=== PATIENT | female | born 1955 | race Caucasian/White ===

== ENCOUNTER → 2018-08-23 15:10 | Outpatient (CLI) | payer MEDICAID, SELFPAY ==
[2018-06-15 15:50] VITALS: BMI 33.3
--- NOTE | 2018-08-23 15:13 | RAD_ITS ---
STUDY: X-RAY - RIGHT HAND, ATTENTION FIRST FINGER REASON FOR EXAM: Female, 63 years old. Mucous cyst in the dorsal radial aspect of the thumb. TECHNIQUE: 3 view(s) of the finger were obtained. COMPARISON: None. FINDINGS: Normal metacarpal head. There is mild degenerative arthrosis of the metacarpophalangeal joint. Normal proximal phalanx. Normal distal phalanx. There is mild degenerative arthrosis of the interphalangeal joint. There is no soft tissue mass or other abnormality. RAD/Finger(s) Min 2 Views IMPRESSION: Degenerative changes of the thumb. There is no visualized osseous or soft tissue mass. Electronically Signed: Mikey Colindres DO at 16:05 EST Tel [phone], Service support ,
--- OUTSIDE RECORDS SUMMARY | 2018-10-09 20:36 | XMS RPT_ITS ---
:1955 Author Organization OH[facility] Care Team Providers Name Role Phone Craig Robles Attending Unavailable Craig Robles Referring Unavailable Romero, Griffin Primary Care Unavailable Romero, Griffin Primary Care Unavailable Bryan Antonio Attending Unavailable Slaby, Craig Attending Unavailable Romero, Griffin Referring Unavailable Romero, Griffin Primary Care Unavailable Slabpraneeth, Craig Attending Unavailable Romero, Griffin Referring Unavailable Romero, Griffin Primary Care Unavailable Margaret, Craig Attending Unavailable Ormero, Griffin Referring Unavailable Slaby, Craig Attending Unavailable Romero, Griffin Referring Unavailable PROBLEMS PROBLEMS DATE TYPE CONDITION / CODE ATTENDING STATUS SOURCE 06/15/2018 Unknown M67.441 - Craig Robles Active Dex Ganglion, right [facility] M67.441(ICD-10) Repository PROCEDURES PROCEDURES No Procedure Records FoundRESULTS RESULTS PLASTIC SURGERY Observed: 09/25/2018 Status: F Source: [place] VISIT REPORT 1:56 PM [facility] REPOSITORY [facility] [address] [place] [address] OFFICE VISIT Date of Service: 09/21/18 MR#: [id number] Acct: [id number] Name: VLAD MACKAY Rep #: [id number] : 1955 Provider: Craig Robles MD Age/Sex: 63/F [place] [facility] [place] Status: Signed Intake Vital Signs09/21/18 Body Mass Index (BMI) 33.3 09/21/18 Height 5 ft 2 in 09/21/18 Weight: 182 lb 6 oz Intake Visit Reasons: evaluation soft tissue masses left forearm Wood Scaler Required: No Accompanied by: None Is patient in pain?: No Allergies No Known Allergies Allergy (Verified 09/21/18 13:39) Medications Hydrochlorothiazide [Hctz] 25 mg PO DAILY 05/21/14 [History Confirmed 03/02/18] naproxen sodium 220 mg capsule 220 mg PO BID PRN 06/15/18 [History Confirmed 06/15/18] Cephalexin [Keflex] 500 mg PO Q6 #30 cap 09/03/18 [Rx] Is last menstrual period known: No Post menopausal: Yes Patient : No PFSH Medical History Actinic keratosis (Acute) Actinic skin damage (Acute) Angiolipoma (Acute) Arthritis (Acute) Compound nevus (Acute) Ganglion cyst (Acute) Lipoma (Acute) Squamous cell carcinoma in situ (Acute) Hypertension (Chronic) Surgical History H/O excision of ganglion cyst (Acute) History of excision of mass (Acute) History of excision of mass (Acute) History of squamous cell carcinoma excision (Acute) History of tubal ligation (Acute) Status post excision of lipoma (Acute) Family History Mother Anxiety Asthma Bleeding disorder Depression Hypertension COPD (chronic obstructive pulmonary disease) Brother Bleeding disorder Depression Hypertension COPD (chronic obstructive pulmonary disease) Social History Smoking Status: Former smoker second hand exposure: No alcohol intake: former substance use type: does not use what type of physical activity do you participate in: walking frequency: 1-2 times per week seatbelt use: never do you feel safe at home: Yes additional social history: SUN EXPOSURE: FREQUENTLY HPI evaluation soft tissue masses left forearm: Details: HISTORY OF PRESENT ILLNESS Patient comes in today for evaluation of soft tissue masses left forearm. She was scheduled to have a mucous cyst right thumb and a soft tissue mass distal dorsal ulnar left forearm excised and rescheduled it because of work issues. Since her last visit in 06/29, she noticed another soft tissue mass on her distal volar radial left forearm that has increased in size over the last couple of months. There is some discomfort when she bumps it. She denies any trauma. For her mucous cyst right thumb, her PCP had initially tried to aspirate it in the office and tried cauterizing it. She states it has gotten a little smaller but is persistent. She denies any functional issues. She denies any numbness. She denies any fever. She denies any trauma. She denies any bleeding. For her soft tissue mass on the distal dorsal ulnar aspect left forearm, there is some discomfort when she bumps it. She denies any trauma. She had an xray of her right thumb on 08/23/18 which showed degenerative changes of the thumb with no visualized osseous or soft tissue mass. REVIEW OF SYSTEMS General - Denies fever, fatigue and weight loss. Eyes - Denies eye pain. denies cataracts. denies glaucoma. ENT - Denies nasal congestion and sore throat. CV - Denies chest pain or discomfort, fatigue, lightheadedness and shortness of breath with exertion. has hypertension. Resp - Denies cough and shortness of breath. patient is a former smoker. GI - Complains of constipation. Denies nausea, vomiting and diarrhea. - Denies blood in urine and urinary frequency. had tubal ligation. MS - Complains of back pain. Denies muscle cramps, stiffness and muscle weakness. She has a mucous cyst at dorsal radial aspect IP joint right right thumb. Derm -has personal history of skin cancer on left anterior leg. Has enlarging soft tissue masses distal dorsal ulnar left forearm and distal volar radial left forearm. Neuro - Denies headaches. Psych - Denies anxiety and depression. Endo - Denies excessive urination and excessive thirst. Heme - Denies bleeding and abnormal bruising. PHYSICAL EXAMINATION General - well developed, well nourished, in no acute distress. HEENT - PERRL/EOMI. Throat is clear. No suspicious lesions noted. Neck - supple and nontender. No cervical adenopathy. No suspicious lesions noted. Lungs - clear bilaterally to auscultation. Heart - regular rate and rhythm. Abdomen - soft and nondistended. Extremities - no clubbing, cyanosis, edema, or deformity noted with normal full range of motion of all joints. On the right thumb on the dorsal radial aspect of the IP joint is a mucous cyst that measures 6 mm. Overlying skin is intact and not ulcerated. Appears mobile. No evidence of infection. No problems with range of motion. No sensory deficits. No evidence of infection. Nontender. No nail grooving. No axillary adenopathy. Fingers are warm with good capillary refill. Radial pulses are palpable. She also has a soft tissue mass distal dorsal ulnar aspect left forearm that is mobile. Measures 2 cm. Slight tenderness to palpation. There is a soft tissue mass distal volar radial aspect left forearm that is mobile. Measures 2.5 cm. Slight tenderness to palpation. Neurologic - cranial nerves II-XII grossly intact. Psych - alert and cooperative; normal mood and affect; normal attention span and concentration. ASSESSMENT 1. 6 mm mucous cyst dorsal radial aspect IP joint right thumb. 2. 2 cm soft tissue mass distal dorsal ulnar aspect left forearm. 3. 2.5 cm soft tissue mass distal volar radial aspect left forearm. 4. Personal history of skin cancer. 5. Former smoker. PLAN Xray reviewed. It showed degenerative changes of the thumb with no visualized osseous or soft tissue mass. Recommend excision of this mucous cyst dorsal radial aspect IP joint right thumb. Will send the cyst to Pathology for analysis to rule out carcinoma. She has some wedding shows in the next few weeks. Will schedule surgery later on in October. Surgery would be done under local anesthesia with a digital tourniquet and IV sedation on an outpatient basis. The overlying skin looks viable and if it can be salvaged then can close the incision primarily. If the overlying skin needs to be removed because of adherence of the cyst to the skin then reconstruction would be with a dorsal skin advancement flap. Depending on how much dissection is needed between the tendon and the bone to look for extensions of the mucous cyst will determine the need for a splint postop to keep the thumb extended during the healing process. The dissection between the tendon and the bone can weaken the tendon. It needs to strengthen before removing the splint. Usually a couple of weeks. At the time of the mucous cyst surgery, can also remove the soft tissue masses on her left forearm and send them to Pathology for analysis to rule out carcinoma. The patient was informed of the risks and complications of the procedure including alternatives to surgery. These were discussed with the patient personally. The patient voices understanding and wishes to proceed. Some of the risks and complications were included in a form from the [place] [employer]. Will followup after her surgery in October. Assessment AND Plan Problems 1. Ganglion cyst of joint of finger of right hand M67.441 2. Mass of left forearm R22.32 3. Personal history of skin cancer Z85.828 4. Former smoker Z87.891 Coding Level of Care Code Off vis,est,level 3 Diagnoses Ganglion cyst of joint of finger of right hand M67.441 Mass of left forearm R22.32 Personal history of skin cancer Z85.828 Former smoker Z87.891 09/25/18 1356 <Electronically signed by Craig Robles MD> Date Craig Robles MD Cosigner Signature: Date (if applicable) CC: Griffin Romero MD DISCHARGE INSTRUCTION Observed: 09/04/2018 Status: F Source: [place] 12:15 AM [facility] REPOSITORY [facility] Medical Records Department [address] [place] [address] Discharge Instruction 09/03/18 2312 MR#: [id number] Acct: [id number] Name: VLAD MACKAY Rep #: [id number] : 1955 63 From: Bryan Antonio MD PCP: Griffin Romero MD Status: DEP ER ED Disposition - Plan for ED Patient: Disposition: Home or Assisted Living Chief Complaint: Abscess Instructions: ED Abscess IandD Prescriptions: Cephalexin [Keflex] 500 mg PO Q6 #30 cap Referrals: Griffin Romero MD [Primary Care Provider] - 3-5 Days Additional Instructions: Tylenol and Motrin for pain. Keflex 1 pill 4 times a day until gone. Follow-up with your doctor. Return if worse. What to do if you have Problems For any increased pain, shortness of breath, bleeding, nausea or vomiting, chest pain, or any unexpected problems, contact your Primary Care Provider. Call [facility] ([phone]) or report to the closest Emergency Room. Call 911 if necessary. 09/04/1814 <Electronically signed by Bryan Antonio MD> Date Bryan Antonio MD Cosigner Signature (If Indicated): Date CC: Griffin Romero MD DISCHARGE INSTRUCTION Observed: 09/04/2018 Status: F Source: [place] 12:15 AM [facility] REPOSITORY [facility] Medical Records Department [address] [place] [address] Discharge Instruction 09/03/182132 MR#: [id number] Acct: [id number] Name: VLAD MACKAY Rep #: [id number] : 1955 63 From: Bryan Antonio MD PCP: Griffin Romero MD Status: DEP ER ED Disposition - Plan for ED Patient: Disposition: Home or Assisted Living Chief Complaint: Abscess Instructions: ED Abscess IandD Prescriptions: Cephalexin [Keflex] 500 mg PO Q6 #30 cap Referrals: Griffin Romero MD [Primary Care Provider] - 3-5 Days Additional Instructions: Tylenol and Motrin for pain. Keflex 1 pill 4 times a day until gone. Follow-up with your doctor. Return if worse. What to do if you have Problems For any increased pain, shortness of breath, bleeding, nausea or vomiting, chest pain, or any unexpected problems, contact your Primary Care Provider. Call [facility] ([phone]) or report to the closest Emergency Room. Call 911 if necessary. 09/04/1814 <Electronically signed by Bryan Antonio MD> Date Bryan Antonio MD Cosigner Signature (If Indicated): Date CC: Griffin Romero MD EMERGENCY DEPARTMENT Observed: 09/04/2018 Status: F Source: [place] SUMMARY 12:15 AM [facility] REPOSITORY [facility] Medical Records Department [address] [place] [address] Emergency Department Summary 09/03/18 2131 MR#: [id number] Acct: [id number] Name: VLAD MACKAY Rep #: [id number] : 1955 63 From: Bryan Antonio MD PCP: Griffin Romero MD Status: DEP ER - ER Visit Summary Date of Service: 09/03/18 Chief Complaint: Abdominal wall abscess History of Present Illness: The patient is a 63 F medical history of hypertension. Patient states this is been there for years. And then it started getting larger several weeks ago in the last several days now has redness around it. She denies any fever or chills. Is never been drained. She denies any discharge. Physical Examination: Well-appearing older female. Vital signs are stable and afebrile. She does not look septic or toxic she is in no distress. H EENT exam unremarkable. Neck nontender. Lungs clear to auscultation bilaterally. Heart regular rhythm no murmur. Abdomen soft. She is an area about size of a quarter with a known abscess or cyst with several inches of surrounding cellulitis. It is mildly tender to palpation. Otherwise the abdomen is nontender without peritoneal signs. She is moving all 4 extremities. Neurologically she is awake alert with no focal deficits. Test Results: None Emergency Department Course and Treatment: Let will be applied to the abscess. Locally anesthetized with lidocaine. Incised and drained. I made a vertical 1 inch incision. And expressed about 5 cc of pus. Irrigated the wound. Placed about 3-4 inches of quarter inch packing gauze. Patient tolerated procedure well. Treatment Plan: Keflex 500 4 times daily for 7 days. Has a follow-up appointment with her doctor this . Packing gauze on for days. Disposition: Discharge Impression: Abdominal abscess with surrounding cellulitis Incision and drainage by ER This note was generated with [employer] dictation software. It may contain incorrect words, spelling, and punctuation that were not noted in review of the chart prior to signing ED Disposition - Plan for ED Patient: Disposition: Home or Assisted Living Chief Complaint: Abscess Instructions: ED Abscess IandD Prescriptions: Cephalexin [Keflex] 500 mg PO Q6 #30 cap Referrals: Griffin Romero MD [Primary Care Provider] - 3-5 Days Additional Instructions: Tylenol and Motrin for pain. Keflex 1 pill 4 times a day until gone. Follow-up with your doctor. Return if worse. What to do if you have Problems For any increased pain, shortness of breath, bleeding, nausea or vomiting, chest pain, or any unexpected problems, contact your Primary Care Provider. Call [facility] ([phone]) or report to the closest Emergency Room. Call 911 if necessary. 09/04/18 0015 <Electronically signed by Bryan Antonio MD> Date Bryan Antonio MD Cosigner Signature (If Indicated): Date CC: Griffin Romero MD FINGER(S) MIN 2 VIEWS Observed: 08/23/2018 Status: F Source: [place] 3:13 PM [facility] REPOSITORY [facility] Imaging Services [address] [place] [address] Finger(s) Min 2 Views MR#: [id number] Acct: [id number] Name: VLAD MACKAY Rep #: [id number] : 1955 F 63 From: Mikey Colindres DO PCP: Griffin Romero MD Status: REG CLI Study: Finger(s) Min 2 Views Date of Exam: 08/23/18 Exam# [id number] Ordering Dr: Craig Robles MD STUDY: X-RAY - RIGHT HAND, ATTENTION FIRST FINGER REASON FOR EXAM: Female, 63 years old. Mucous cyst in the dorsal radial aspect of the thumb. TECHNIQUE: 3 view(s) of the finger were obtained. COMPARISON: None. FINDINGS: Normal metacarpal head. There is mild degenerative arthrosis of the metacarpophalangeal joint. Normal proximal phalanx. Normal distal phalanx. There is mild degenerative arthrosis of the interphalangeal joint. There is no soft tissue mass or other abnormality. RAD/Finger(s) Min 2 Views IMPRESSION: Degenerative changes of the thumb. There is no visualized osseous or soft tissue mass. Electronically Signed: Mikey Colindres DO at 16:05 EST Tel [phone], Service support , CC: Craig Robles MD; Griffin Romero MD Engineering Program Manager: Signed PLASTIC SURGERY Observed: 06/18/2018 Status: F Source: [place] VISIT REPORT 5:27 PM [facility] REPOSITORY [facility] [address] [place] [address] OFFICE VISIT Date of Service: 06/15/18 MR#: [id number] Acct: [id number] Name: VLAD MACKAY Rep #: [id number] : 1955 Provider: Craig Robles MD Age/Sex: 63/F Location: [facility] Status: Signed Intake Vital Signs06/15/18 Height 5 ft 1 in 06/15/18 Weight: 176 lb 6 oz Intake Visit Reasons: evaluation mucus cyst right thumb Wood Scaler Required: No Accompanied by: None Is patient in pain?: No Allergies No Known Allergies Allergy (Verified 06/15/18 15:52) Medications Hydrochlorothiazide [Hctz] 25 mg PO DAILY 05/21/14 [History Confirmed 03/02/18] naproxen sodium 220 mg capsule 220 mg PO BID PRN 06/15/18 [History Confirmed 06/15/18] Is last menstrual period known: No Post menopausal: Yes Patient : No PFSH Medical History Actinic keratosis (Acute) Actinic skin damage (Acute) Angiolipoma (Acute) Arthritis (Acute) Compound nevus (Acute) Ganglion cyst (Acute) Lipoma (Acute) Squamous cell carcinoma in situ (Acute) Hypertension (Chronic) Surgical History H/O excision of ganglion cyst (Acute) History of excision of mass (Acute) History of excision of mass (Acute) History of squamous cell carcinoma excision (Acute) History of tubal ligation (Acute) Status post excision of lipoma (Acute) Family History Mother Anxiety Asthma Bleeding disorder Depression Hypertension COPD (chronic obstructive pulmonary disease) Brother Bleeding disorder Depression Hypertension COPD (chronic obstructive pulmonary disease) Social History Smoking Status: Former smoker second hand exposure: No alcohol intake: former substance use type: does not use what type of physical activity do you participate in: walking frequency: 1-2 times per week seatbelt use: never do you feel safe at home: Yes additional social history: SUN EXPOSURE: FREQUENTLY HPI evaluation mucus cyst right thumb: Details: HISTORY OF PRESENT ILLNESS Patient comes in today for re-evaluation of her mucous cyst right thumb. She states her PCP has tried to aspirate it in the office and tried cauterizing it. She states it has gotten a little smaller but is persistent. She denies any functional issues. She denies any numbness. She denies any fever. She denies any trauma. She denies any bleeding. She also has concerns about a soft tissue mass on the dorsal ulnar aspect mid left forearm. There is some discomfort when she bumps it. She denies any trauma. REVIEW OF SYSTEMS General - Denies fever, fatigue and weight loss. Eyes - Denies eye pain. denies cataracts. denies glaucoma. ENT - Denies nasal congestion and sore throat. CV - Denies chest pain or discomfort, fatigue, lightheadedness and shortness of breath with exertion. has hypertension. Resp - Denies cough and shortness of breath. patient is a former smoker. GI - Complains of constipation. Denies nausea, vomiting and diarrhea. - Denies blood in urine and urinary frequency. had tubal ligation. MS - Complains of back pain. Denies muscle cramps, stiffness and muscle weakness. She has a mucous cyst at dorsal radial aspect IP joint right right thumb. Derm -has personal history of skin cancer on left anterior leg. Neuro - Denies headaches. Psych - Denies anxiety and depression. Endo - Denies excessive urination and excessive thirst. Heme - Denies bleeding and abnormal bruising. PHYSICAL EXAMINATION General - well developed, well nourished, in no acute distress. HEENT - PERRL/EOMI. Throat is clear. No suspicious lesions noted. Neck - supple and nontender. No cervical adenopathy. No suspicious lesions noted. Lungs - clear bilaterally to auscultation. Heart - regular rate and rhythm. Abdomen - soft and nondistended. Extremities - no clubbing, cyanosis, edema, or deformity noted with normal full range of motion of all joints. On the right thumb on the dorsal radial aspect of the IP joint is a mucous cyst that measures 6 mm. Overlying skin is intact and not ulcerated. Appears mobile. No evidence of infection. No problems with range of motion. No sensory deficits. No evidence of infection. Nontender. No nail grooving. No axillary adenopathy. Fingers are warm with good capillary refill. Radial pulses are palpable. She also has a soft tissue mass dorsal ulnar aspect mid left forearm that is mobile. Measures 2 cm. Slight tenderness to palpation. Neurologic - cranial nerves II-XII grossly intact. Psych - alert and cooperative; normal mood and affect; normal attention span and concentration. ASSESSMENT 1. 6 mm mucous cyst dorsal radial aspect IP joint right thumb. 2. 2 cm soft tissue mass dorsal ulnar aspect mid left forearm. 3. Personal history of skin cancer. 4. Former smoker. PLAN Recommend excision of this mucous cyst dorsal radial aspect IP joint right thumb. Will send the cyst to Pathology for analysis to rule out carcinoma. She is busy right now and wants to wait until September for the surgery. Surgery would be done under local anesthesia with a digital tourniquet and IV sedation on an outpatient basis. The overlying skin looks viable and if it can be salvaged then can close the incision primarily. If the overlying skin needs to be removed because of adherence of the cyst to the skin then reconstruction would be with a dorsal skin advancement flap. Will need an xray preop to look for any bony spurs that would need to be excised at the time of surgery to minimize recurrence. Depending on how much dissection is needed between the tendon and the bone to look for extensions of the mucous cyst will determine the need for a splint postop to keep the thumb extended during the healing process. The dissection between the tendon and the bone can weaken the tendon. It needs to strengthen before removing the splint. Usually a couple of weeks. At the time of the mucous cyst surgery, can also remove the soft tissue mass on her left forearm and send it to Pathology for analysis to rule out carcinoma. The patient was informed of the risks and complications of the procedure including alternatives to surgery. These were discussed with the patient personally. The patient voices understanding and wishes to proceed. Some of the risks and complications were included in a form from the [place] [employer]. Will followup after her surgery in September. Assessment AND Plan Problems 1. Ganglion cyst of joint of finger of right hand M67.441 2. Mass of left forearm R22.32 3. Personal history of skin cancer Z85.828 4. Former smoker Z87.891 Orders Orders: Coding Level of Care Code Off vis,est,level 3 Diagnoses Ganglion cyst of joint of finger of right hand M67.441 Mass of left forearm R22.32 Personal history of skin cancer Z85.828 Former smoker Z87.891 06/18/18 1727 <Electronically signed by Craig Robles MD> Date Craig Robles MD Cosigner Signature: Date (if applicable) CC: Griffin Romero MD PLASTIC SURGERY Observed: 04/09/2018 Status: F Source: [place] VISIT REPORT 3:32 PM [facility] REPOSITORY [facility] [address] [place] [address] OFFICE VISIT Date of Service: 03/02/18 MR#: [id number] Acct: [id number] Name: VLAD MACKAY Rep #: [id number] : 1955 Provider: Craig Robles MD Age/Sex: 62/F Location: [facility] Status: Signed Intake Vital Signs03/02/18 Height 5 ft 1 in 03/02/18 Weight: 175 lb 6 oz Intake Visit Reasons: evaluation for TBSE Wood Scaler Required: No Accompanied by: None Is patient in pain?: No Allergies No Known Allergies Allergy (Verified 03/02/18 14:36) Medications Ascorbic Acid [Vitamin C] 500 mg PO DAILY@0800 05/21/14 [History Confirmed 03/02/18] Calcium Carb/Vitamin D [Os-[place] 500MG + D] 1 tab PO DAILY@0800 05/21/14 [History Confirmed 03/02/18] Hydrochlorothiazide [Hctz] 25 mg PO DAILY 05/21/14 [History Confirmed 03/02/18] Multivitamins,Therapeutic [Multivitamin] 1 tab PO DAILY 05/21/14 [History Confirmed 03/02/18] Omeprazole [Prilosec] 20 mg PO DAILY 05/21/14 [History Confirmed 03/02/18] Albuterol Inhaler [Ventolin Hfa] 1 - 2 puff INHALATION Q4H PRN PRN 01/01/16 [History Confirmed 03/02/18] Is last menstrual period known: No Post menopausal: Yes Patient : No PFSH Medical History Actinic keratosis (Acute) Actinic skin damage (Acute) Angiolipoma (Acute) Arthritis (Acute) Compound nevus (Acute) Ganglion cyst (Acute) Lipoma (Acute) Squamous cell carcinoma in situ (Acute) Hypertension (Chronic) Surgical History H/O excision of ganglion cyst (Acute) History of excision of mass (Acute) History of excision of mass (Acute) History of squamous cell carcinoma excision (Acute) History of tubal ligation (Acute) Status post excision of lipoma (Acute) Family History Mother Anxiety Asthma Bleeding disorder Depression Hypertension COPD (chronic obstructive pulmonary disease) Brother Bleeding disorder Depression Hypertension COPD (chronic obstructive pulmonary disease) Social History Smoking Status: Former smoker second hand exposure: No alcohol intake: former substance use type: does not use what type of physical activity do you participate in: walking frequency: 1-2 times per week seatbelt use: never do you feel safe at home: Yes additional social history: SUN EXPOSURE: FREQUENTLY HPI evaluation for TBSE: Details: HISTORY OF PRESENT ILLNESS Patient comes in today for evaluation for TBSE. She had used the remaining Aldara on the lesions on her left posterior leg, proximal, and right posterior thigh, distal, and left upper lateral lip. In addition she stated her PCP had burned these lesions off as well. She also has concerns about a mass on her right thumb on the dorsum at the level of the IP joint on the radial aspect of the thumb. She denies any functional issues. She denies any numbness. She denies any fever. She denies any trauma. She denies any bleeding. 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 actinic keratosis left medial leg actinic lesion right medial leg PAST SURGICAL HISTORY Tubal Ligation excision lipomas thighs and arms excision 2.5 cm soft tissue mass dorsum left hand by small finger near the wrist and excision 2 cm painful soft tissue mass dorsum left wrist by the long finger and excision 5 mm lesion dorsal ulnar aspect left wrist with 1.5 cm layered closure - 05/27/14 excision 1.5 cm ganglion cyst right volar radial wrist extending to the radioscaphoid joint and excision 2 cm painful soft tissue mass right mid dorsal ulnar forearm and excision 5 cm painful soft tissue mass right mid volar ulnar forearm and excision 2 cm painful soft tissue mass right antecubital area and excision 4 cm painful soft tissue mass right lateral elbow and excision 6 cm painful soft tissue mass right medial elbow - 01/20/16 excision 1.3 cm squamous cell carcinoma in situ scar left anterior leg with STSG reconstruction from the left flank (6.25 cm2) and intrradermal excision 6 mm actinic keratosis left medial leg - 02/10/17 FAMILY HISTORY Mother (biol.) - Has Family History of Anxiety Mother (biol.) - Has Family History of Asthma Mother (biol.) - Has Family History of Bleeding Disease Mother (biol.) - Has Family History of Depression Mother (biol.) - Has Family History of Hypertension Mother (biol.) - Has Family History of Lung/Respiratory Disease Brother (full) - Has Family History of Bleeding Disease - Brother-bowel dx Brother (full) - Has Family History of Depression - Brother- bowel dx Brother (full) - Has Family History of Hypertension - Brother- bowel dx Brother (full) - Has Family History of Lung/Respiratory Disease - Brother-bowel dx negative for skin cancer. Asthma Heart dx High bp Small 2/3 removed-brother SOCIAL HISTORY Patient recently stopped smoking. Alcohol Use - no Drug Use - no does not use aspirin. does not use ibuprofen. REVIEW OF SYSTEMS General - Denies fever, fatigue and weight loss. Eyes - Denies eye pain. denies cataracts. denies glaucoma. ENT - Denies nasal congestion and sore throat. CV - Denies chest pain or discomfort, fatigue, lightheadedness and shortness of breath with exertion. has hypertension. Resp - Denies cough and shortness of breath. patient is a former smoker. GI - Complains of constipation. Denies nausea, vomiting and diarrhea. - Denies blood in urine and urinary frequency. had tubal ligation. MS - Complains of back pain. Denies muscle cramps, stiffness and muscle weakness. She has a mucous cyst at dorsal radial aspect IP joint right right thumb. Derm -had enlarging lesion left anterior leg that was biopsied on 12/29/16 which showed a squamous cell carcinoma in situ. Had lesions left posterior leg, proximal, and right posterior thigh, distal, and left upper lateral lip that have healed after using a little bit of Aldara and her PCP burned them off. Neuro - Denies headaches. Psych - Denies anxiety and depression. Endo - Denies excessive urination and excessive thirst. Heme - Denies bleeding and abnormal bruising. PHYSICAL EXAMINATION General - well developed, well nourished, in no acute distress. Head - normocephalic and atraumatic. No suspicious lesions noted. Eyes - PERRL/EOM intact, conjunctiva and sclera clear. Ears - No suspicious lesions noted. Nose - No suspicious lesions noted. Mouth -On the left lateral upper lip near the commissure was a lesion that appears smooth and healed at this time after using some Aldara and having it burned off by her PCP. Neck - no masses, thyromegaly, or abnormal cervical nodes. No suspicious lesions noted. Chest Wall - No suspicious lesions noted Lungs - clear bilaterally to auscultation. Heart - regular rate and rhythm. Abdomen - normal bowel sounds; no hepatosplenomegaly no ventral,umbilical hernias or masses noted. Msk - No suspicious lesions noted Pulses - pulses normal in all 4 extremities. Extremities - no clubbing, cyanosis, edema, or deformity noted with normal full range of motion of all joints. on the left posterior leg, proximal, was a small lesion that appears smooth and healed at this time after using some Aldara and having it burned off by her PCP. On the right posterior thigh, distal, was a small lesion that appears smooth and healed at this time after using Aldara and having it burned off by her PCP. On the right thumb on the dorsal radial aspect of the IP joint is a mucous cyst that measures 6 mm. Overlying skin is intact and not ulcerated. Appears mobile. No evidence of infection. No problems with range of motion. No sensory deficits. No evidence of infection. Nontender. No nail grooving. She also has some soft tissue masses on her right forearm and left lateral knee area that are clinically lipomas. Nontender. Measure 2 cm. Neurologic - cranial nerves II-XII grossly intact. Skin - no rashes. Cervical Nodes - no significant adenopathy. Axillary Nodes - no significant adenopathy. Inguinal Nodes - no significant adenopathy. Psych - alert and cooperative; normal mood and affect; normal attention span and concentration. ASSESSMENT 1. 6 mm mucous cyst dorsal radial aspect IP joint right thumb. 2. 3 mm lesion left upper lateral lip, healed. 3. 5 mm lesion left posterior leg, proximal, healed. 4. 5 mm lesion right posterior thigh, distal, healed. 5. 2 cm soft tissue mass right forearm. 6. 2 cm soft tissue mass left lateral knee. 7. Personal history of skin cancer. 8. Former smoker. PLAN Patient states she will stop with anymore Aldara because of difficulty with the insurance. She states her PCP will burn off lesions that are actinic in nature. If he thinks one needs excision, she will followup for evaluation for excision. She states that in the Fall, she may want to have her mucous cyst excised. Reconstruction may need a dorsal skin advancement flap. Will need an xray preop to look for any bony spurs that would need to be excised at the time of surgery to minimize recurrence. Depending on how much dissection is needed between the tendon and the bone to look for extensions of the mucous cyst will determine the need for a splint postop to keep the thumb extended during the healing process. The dissection between the tendon and the bone can weaken the tendon. It needs to strengthen before removing the splint. Usually a couple of weeks. At the time of the mucous cyst surgery, can also remove the soft tissue masses on her right forearm and left lateral knee and send them to Pathology for analysis to rule out carcinoma. The patient was informed of the risks and complications of the procedure including alternatives to surgery. These were discussed with the patient personally. The patient voices understanding and wishes to proceed with the current plan of surgery sometime in the Fall. Will followup after her surgery. Assessment AND Plan Problems 1. Ganglion cyst of joint of finger of right hand M67.441 2. Neoplasm of unspecified behavior of bone, soft tissue, and skin D49.2 3. 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 Mass of soft tissue of left lower extremity R22.42 5. Mass of soft tissue of right upper extremity R22.31 6. Personal history of skin cancer Z85.828 7. 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 Mass of soft tissue of left lower extremity R22.42 Mass of soft tissue of right upper extremity R22.31 Personal history of skin cancer Z85.828 Former smoker Z87.891 04/09/18 1532 <Electronically signed by Craig Robles MD> Date Craig Robles MD Cosigner Signature: Date (if applicable) CC: PLASTIC SURGERY Observed: 01/29/2018 Status: F Source: DEX VISIT REPORT 6:41 PM [facility] REPOSITORY [facility] [address] [address] OFFICE VISIT Date of Service: 11/10/17 MR#: [id number] Acct: [id number] Name: VLAD MACKAY Rep #: [id number] : 1955 Provider: Craig Robles MD Age/Sex: 62/F Location: [facility] Status: Signed Intake Vital Signs11/10/17 Height 5 ft 1 in 11/10/17 Weight: 187 lb 2 oz Intake Visit Reasons: evaluation for TBSE Wood Scaler Required: No Accompanied by: None Is patient in pain?: No Allergies No Known Allergies Allergy (Verified 11/10/17 13:44) Medications Ascorbic Acid [Vitamin C] 500 mg PO DAILY@0805/21/14 [History Confirmed 11/10/17] Calcium Carb/Vitamin D [Os-Galindo 500MG + D] 1 tab PO DAILY@0805/21/14 [History Confirmed 11/10/17] Hydrochlorothiazide [Hctz] 25 mg PO DAILY 05/21/14 [History Confirmed 11/10/17] Multivitamins,Therapeutic [Multivitamin] 1 tab PO DAILY 05/21/14 [History Confirmed 11/10/17] Omeprazole [Prilosec] 20 mg PO DAILY 05/21/14 [History Confirmed 11/10/17] Albuterol Inhaler [Ventolin Hfa] 1 - 2 puff INHALATION Q4H PRN PRN 01/01/16 [History Confirmed 11/10/17] Is last menstrual period known: No Post menopausal: Yes Patient : No PFSH Medical History Actinic keratosis (Acute) Actinic skin damage (Acute) Angiolipoma (Acute) Arthritis (Acute) Compound nevus (Acute) Ganglion cyst (Acute) Lipoma (Acute) Squamous cell carcinoma in situ (Acute) Hypertension (Chronic) Surgical History H/O excision of ganglion cyst (Acute) History of excision of mass (Acute) History of excision of mass (Acute) History of squamous cell carcinoma excision (Acute) History of tubal ligation (Acute) Status post excision of lipoma (Acute) Family History Mother Anxiety Asthma Bleeding disorder Depression Hypertension COPD (chronic obstructive pulmonary disease) Brother Bleeding disorder Depression Hypertension COPD (chronic obstructive pulmonary disease) Social History Smoking Status: Former smoker second hand exposure: No alcohol intake: former substance use type: does not use what type of physical activity do you participate in: walking frequency: 1-2 times per week seatbelt use: never do you feel safe at home: Yes additional social history: SUN EXPOSURE: FREQUENTLY HPI evaluation for TBSE: Details: HISTORY OF PRESENT ILLNESS Patient comes in today for evaluation for TBSE. She has noticed lesions on her left posterior leg, proximal, and right posterior thigh, distal, that have increased in size over the last few months. There is also a lesion on her left upper lateral lip that is scabby and has increased in size as well. She denies any fever. She denies any trauma. She denies any bleeding. 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 actinic keratosis left medial leg actinic lesion right medial leg PAST SURGICAL HISTORY Tubal Ligation excision lipomas thighs and arms excision 2.5 cm soft tissue mass dorsum left hand by small finger near the wrist and excision 2 cm painful soft tissue mass dorsum left wrist by the long finger and excision 5 mm lesion dorsal ulnar aspect left wrist with 1.5 cm layered closure - 05/27/14 excision 1.5 cm ganglion cyst right volar radial wrist extending to the radioscaphoid joint and excision 2 cm painful soft tissue mass right mid dorsal ulnar forearm and excision 5 cm painful soft tissue mass right mid volar ulnar forearm and excision 2 cm painful soft tissue mass right antecubital area and excision 4 cm painful soft tissue mass right lateral elbow and excision 6 cm painful soft tissue mass right medial elbow - 01/20/16 excision 1.3 cm squamous cell carcinoma in situ scar left anterior leg with STSG reconstruction from the left flank (6.25 cm2) and intrradermal excision 6 mm actinic keratosis left medial leg - 02/10/17 FAMILY HISTORY Mother (biol.) - Has Family History of Anxiety Mother (biol.) - Has Family History of Asthma Mother (biol.) - Has Family History of Bleeding Disease Mother (biol.) - Has Family History of Depression Mother (biol.) - Has Family History of Hypertension Mother (biol.) - Has Family History of Lung/Respiratory Disease Brother (full) - Has Family History of Bleeding Disease - Brother-bowel dx Brother (full) - Has Family History of Depression - Brother- bowel dx Brother (full) - Has Family History of Hypertension - Brother- bowel dx Brother (full) - Has Family History of Lung/Respiratory Disease - Brother-bowel dx negative for skin cancer. Asthma Heart dx High bp Small 2/3 removed-brother SOCIAL HISTORY Patient recently stopped smoking. Alcohol Use - no Drug Use - no does not use aspirin. does not use ibuprofen. REVIEW OF SYSTEMS General - Denies fever, fatigue and weight loss. Eyes - Denies eye pain. denies cataracts. denies glaucoma. ENT - Denies nasal congestion and sore throat. CV - Denies chest pain or discomfort, fatigue, lightheadedness and shortness of breath with exertion. has hypertension. Resp - Denies cough and shortness of breath. patient is a former smoker. GI - Complains of constipation. Denies nausea, vomiting and diarrhea. - Denies blood in urine and urinary frequency. had tubal ligation. MS - Complains of back pain. Denies muscle cramps, stiffness and muscle weakness. Derm -had enlarging lesion left anterior leg that was biopsied on 12/29/16 which showed a squamous cell carcinoma in situ. Has enlarging lesions left posterior leg, proximal, and right posterior thigh, distal, and left upper lateral lip. Neuro - Denies headaches. Psych - Denies anxiety and depression. Endo - Denies excessive urination and excessive thirst. Heme - Denies bleeding and abnormal bruising. PHYSICAL EXAMINATION General - well developed, well nourished, in no acute distress. Head - normocephalic and atraumatic. No suspicious lesions noted. Eyes - PERRL/EOM intact, conjunctiva and sclera clear. Ears - No suspicious lesions noted Nose - No suspicious lesions noted Mouth -On the left lateral upper lip near the commissure is a lesion that measures 3 mm. Some scabbing. No ulceration. Lesion is nontender. No ulceration. It is located 18 mm from the commissure. The length of the upper lip is 6 cm. Neck - no masses, thyromegaly, or abnormal cervical nodes. No suspicious lesions noted. Chest Wall - No suspicious lesions noted Lungs - clear bilaterally to auscultation. Heart - regular rate and rhythm. Abdomen - normal bowel sounds; no hepatosplenomegaly no ventral,umbilical hernias or masses noted. Msk - No suspicious lesions noted Pulses - pulses normal in all 4 extremities. Extremities - no clubbing, cyanosis, edema, or deformity noted with normal full range of motion of all joints. on the left posterior leg, proximal, is a small lesion that measures 5 mm. Has regular borders. No ulceration. Lesion is nontender. Slightly raised in configuration. On the right posterior thigh, distal, is a small lesion that measures 5 mm. Has regular borders. No ulceration. Lesion is nontender. Slightly raised in configuration. Neurologic - cranial nerves II-XII grossly intact. Skin - no rashes. Cervical Nodes - no significant adenopathy. Axillary Nodes - no significant adenopathy. Inguinal Nodes - no significant adenopathy. Psych - alert and cooperative; normal mood and affect; normal attention span and concentration. ASSESSMENT 1. 3 mm lesion left upper lateral lip. 2. 5 mm lesion left posterior leg, proximal. 3. 5 mm lesion right posterior thigh, distal. 4. Former smoker. PLAN With her history of actinic damage, will apply Aldara to these areas on her left upper lip, left posterior leg, proximal, and right posterior thigh, distal. She states she has some at home and will use them. If she needs more, she will call. The last time it was difficult to obtain the medicine from the insurance company. If unable to get can then observe the areas and if any changes occur can proceed to surgical excision at that time and send them to Pathology for analysis to rule out carcinoma. The patient was informed of the risks and complications of the procedure including alternatives to surgery. These were discussed with the patient personally. The patient voices understanding and wishes to proceed with the current plan of close observation and re-evaluation in 2 months. Follow-up 2 months for a TBSE. Assessment AND Plan Problems 1. 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 Neoplasm of unspecified behavior of bone, soft tissue, and skin D49.2 3. Personal history of skin cancer Z85.828 4. 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 Neoplasm of unspecified behavior of bone, soft tissue, and skin D49.2 Personal history of skin cancer Z85.828 Former smoker Z87.891 01/29/18 1841 <Electronically signed by Craig Robles MD> Date Craig Robles MD Cosigner Signature: Date (if applicable) CC: Griffin Romero MD ALLERGIES ALLERGIES DATE TYPE / CODE NAME / CODE REACTION SEVERITY SOURCE 09/21/2018 Drug No Known Unknown [facility] Allergy/4160 Allergies/F00 Hospital 66150(SNOMED 7858528(RXNOR Repository CT) M) ENCOUNTERS ENCOUNTERS ADMIT/DISCHARGE ACCOUNT ADMITTING ENCOUNTER LOCATION SOURCE NUMBER CLASS 09/21/2018/ [id number] Ambulatory BMSBuilding:B Dex 9 0 [facility] Repository 09/03/2018/ [id number] Emergency [place] Dex 8 4 [facility] ing:ED Repository 08/23/2018 [id number] Ambulatory [place] Dex 0 [facility] ing:MTRAD Repository 06/15/2018/ [id number] Ambulatory BMSBuilding:B Dex 8 7 [facility] Repository 03/02/2018/ [id number] Ambulatory BMSBuilding:B Dex 8 6 [facility] Repository 11/10/2017/ [id number] Ambulatory BMSBuilding:B [place] 8 6 MS[facility] Repository PAYERS PAYERS ENCOUNTER GUARANTOR PAYER SUBSCRIBER SOURCE 09/21/2018 VLAD Morgan Primary VLAD [id number] Insurance:[facility] TYRONEB: [facility] Number: [id number] [id number] Repository [address]Qac: (330) Date:2018-08-28 O [phone] () [address]ATTN: [place] [address]XM: 09/21/2018 Secondary NOT GIVENUNK Dex Insurance:SELF [facility]Y [facility] Effective Repository Date:2018-09-21 09/03/2018 VLAD K Primary VLAD K [place] [id number] Insurance:CARESOURCEP CUNNINGHAMDOB: [facility] olicy Number: [id number] [id number] Repository [address]Ozl: (330) Date:2018-09-03P O [phone] () [address]ATTN: [place] [address]XM: 09/03/2018 Secondary NOT GIVENUNK Dex Insurance:SELF PAY [facility] Number: Effective Repository Date:2018-09-03 08/23/2018 VLAD K Primary VLAD K [place] [id number] Insurance:CARESOURCEP CUNNINGHAMDOB: [facility] olicy Number: [id number] [id number] Repository [address]Gxl: (330) Date:2018-08-23 O 07 () [address]ATTN: [place] [address]SV: 08/23/2018 Secondary NOT GIVENUNK Dex Insurance:SELF PAY [facility] Number: Effective Repository Date:2018-08-23 06/15/2018 VLAD K Primary VLAD K Dex [id number] Insurance:CARESOURCEP CUNNINGHAMDOB: [facility] olicy Number: [id number] [address] [id number] Repository [address]Kzv: (330) Date:2018-05-17P O [phone] () [address]ATTN: [place] [address]VK: 06/15/2018 Secondary NOT GIVENUNK [place] Insurance:SELF PAY [facility] Number: Effective Repository Date:2018-06-15 03/02/2018 VLAD Morgan Primary VLAD Morgan [place] [id number] Insurance:CARESOURCEP CUNNINGHAMDOB: [facility] Number: [id number] [id number] Repository [address]Uwm: (330) Date:2017-11-10P O [phone] () [address]ATTN: [place] [address]NB: 03/02/2018 Secondary NOT GIVENUNK [facility] Insurance:SELF PAY [facility] Number: Effective Repository Date:2018-01-24 11/10/2017 VLAD Morgan Primary VLAD K [place] [id number] Insurance:CARESOURCEP [facility] Number: [id number] [id number] Repository [address]Fwj: (330) Date:2017-08-13P O [phone] () [address]ATTN: [place] [address]ZW: 11/10/2017 Secondary NOT GIVENUNK [place] Insurance:SELF PAY [facility] Number: Effective Repository Date:2017-08-13
== END ==
PROVIDERS: Family Provider Family Medicine; PCP Family Medicine; Referring Provider Surgery; Visit Provider Surgery
DX: M67.441 Ganglion, right hand (principal)
CPT/HCPCS: 73140

== ENCOUNTER 2018-09-03 19:34 | Emergency (ER) | payer MEDICAID, SELFPAY ==
[2018-09-03 19:35] VITALS: BP 177/89; PULSE 86; RESP 15; TEMP 36.1; O2SAT 96; BMI 33.3
--- NOTE | 2018-09-03 21:33 | ED.DCSUM_ITS ---
- ER Visit Summary Date of Service: 09/03/18 Chief Complaint: Abdominal wall abscess History of Present Illness: The patient is a 63 F medical history of hypertension. Patient states this is been there for years. And then it started getting larger several weeks ago in the last several days now has redness around it. She denies any fever or chills. Is never been drained. She denies any discharge. Physical Examination: Well-appearing older female. Vital signs are stable and afebrile. She does not look septic or toxic she is in no distress. H EENT exam unremarkable. Neck nontender. Lungs clear to auscultation bilaterally. Heart regular rhythm no murmur. Abdomen soft. She is an area about size of a quarter with a known abscess or cyst with several inches of surrounding cellulitis. It is mildly tender to palpation. Otherwise the abdomen is nontender without peritoneal signs. She is moving all 4 extremities. Neurologically she is awake alert with no focal deficits. Test Results: None Emergency Department Course and Treatment: Let will be applied to the abscess. Locally anesthetized with lidocaine. Incised and drained. I made a vertical 1 inch incision. And expressed about 5 cc of pus. Irrigated the wound. Placed about 3-4 inches of quarter inch packing gauze. Patient tolerated procedure well. Treatment Plan: Keflex 500 4 times daily for 7 days. Has a follow-up appointment with her doctor this . Packing gauze on for days. Disposition: Discharge Impression: Abdominal abscess with surrounding cellulitis Incision and drainage by ER This note was generated with [employer] dictation software. It may contain incorrect words, spelling, and punctuation that were not noted in review of the chart prior to signing ED Disposition - Plan for ED Patient: Disposition: Home or Assisted Living Chief Complaint: Abscess Instructions: ED Abscess IandD Prescriptions: Cephalexin [Keflex] 500 mg PO Q6 #30 cap Referrals: Griffin Romero MD [Primary Care Provider] - 3-5 Days Additional Instructions: Tylenol and Motrin for pain. Keflex 1 pill 4 times a day until gone. Follow-up with your doctor. Return if worse.
[2018-09-03 22:00] VITALS: BP 147/73; PULSE 75; RESP 16; O2SAT 99
[2018-09-03] MEDS: Lidocaine/Epi/Tetracaine 50 ML 1 APPLIC TOPICAL (22:17)
[2018-09-03] MEDS: Cephalexin 250 MG Capsule 500 MG PO (22:17)
--- NOTE | 2018-09-03 23:12 | ED.DEP ---
ED Disposition - Plan for ED Patient: Disposition: Home or Assisted Living Chief Complaint: Abscess Instructions: ED Abscess IandD Prescriptions: Cephalexin [Keflex] 500 mg PO Q6 #30 cap Referrals: Griffin Romero MD [Primary Care Provider] - 3-5 Days Additional Instructions: Tylenol and Motrin for pain. Keflex 1 pill 4 times a day until gone. Follow-up with your doctor. Return if worse.
[2018-09-03 23:22] VITALS: BP 155/83; PULSE 79; RESP 18; O2SAT 100
== END 2018-09-03 23:23 | disposition home or self-care (01) ==
PROVIDERS: Emergency Provider Emergency Medicine; Family Provider Family Medicine; PCP Family Medicine
DX: L02.211 Cutaneous abscess of abdominal wall (principal); I10 Essential (primary) hypertension
CPT/HCPCS: 10060; 99283

== ENCOUNTER 2018-11-24 06:17 | Day surgery (SDC) | payer MEDICAID, SELFPAY ==
[2018-09-21 13:38] VITALS: BMI 33.3
--- NOTE | 2018-11-23 22:37 | PCM.HP.BLA ---
History and Physical Date of Admission: 11/24/18 HISTORY OF PRESENT ILLNESS Patient comes in today for evaluation of soft tissue masses left forearm. She was scheduled to have a mucous cyst right thumb and a soft tissue mass distal dorsal ulnar left forearm excised and rescheduled it because of work issues. Since her last visit in 06/29, she noticed another soft tissue mass on her distal volar radial left forearm that has increased in size over the last couple of months. There is some discomfort when she bumps it. She denies any trauma. For her mucous cyst right thumb, her PCP had initially tried to aspirate it in the office and tried cauterizing it. She states it has gotten a little smaller but is persistent. She denies any functional issues. She denies any numbness. She denies any fever. She denies any trauma. She denies any bleeding. For her soft tissue mass on the distal dorsal ulnar aspect left forearm, there is some discomfort when she bumps it. She denies any trauma. She had an xray of her right thumb on 08/23/18 which showed degenerative changes of the thumb with no visualized osseous or soft tissue mass. PAST MEDICAL HISTORY Actinic keratosis Actinic skin damage Angiolipoma Arthritis Compound nevus Ganglion cyst Lipoma Squamous cell carcinoma in situ Hypertension PAST SURGICAL HISTORY excision of ganglion cyst excision of mass squamous cell carcinoma excision tubal ligation excision of lipoma ALLERGIES No Known Allergies MEDICATIONS Hydrochlorothiazide [Hctz] naproxen sodium Cephalexin [Keflex] FAMILY HISTORY Mother - Anxiety, Asthma, Bleeding disorder, Depression, Hypertension, COPD (chronic obstructive pulmonary disease) Brother - Bleeding disorder, Depression, Hypertension, COPD (chronic obstructive pulmonary disease) SOCIAL HISTORY Smoking Status: Former smoker second hand exposure: No alcohol intake: former substance use type: does not use REVIEW OF SYSTEMS General - Denies fever, fatigue and weight loss. Eyes - Denies eye pain. denies cataracts. denies glaucoma. ENT - Denies nasal congestion and sore throat. CV - Denies chest pain or discomfort, fatigue, lightheadedness and shortness of breath with exertion. has hypertension. Resp - Denies cough and shortness of breath. patient is a former smoker. GI - Complains of constipation. Denies nausea, vomiting and diarrhea. - Denies blood in urine and urinary frequency. had tubal ligation. MS - Complains of back pain. Denies muscle cramps, stiffness and muscle weakness. She has a mucous cyst at dorsal radial aspect IP joint right right thumb. Derm -has personal history of skin cancer on left anterior leg. Has enlarging soft tissue masses distal dorsal ulnar left forearm and distal volar radial left forearm. Neuro - Denies headaches. Psych - Denies anxiety and depression. Endo - Denies excessive urination and excessive thirst. Heme - Denies bleeding and abnormal bruising. PHYSICAL EXAMINATION General - well developed, well nourished, in no acute distress. HEENT - PERRL/EOMI. Throat is clear. No suspicious lesions noted. Neck - supple and nontender. No cervical adenopathy. No suspicious lesions noted. Lungs - clear bilaterally to auscultation. Heart - regular rate and rhythm. Abdomen - soft and nondistended. Extremities - no clubbing, cyanosis, edema, or deformity noted with normal full range of motion of all joints. On the right thumb on the dorsal radial aspect of the IP joint is a mucous cyst that measures 6 mm. Overlying skin is intact and not ulcerated. Appears mobile. No evidence of infection. No problems with range of motion. No sensory deficits. No evidence of infection. Nontender. No nail grooving. No axillary adenopathy. Fingers are warm with good capillary refill. Radial pulses are palpable. She also has a soft tissue mass distal dorsal ulnar aspect left forearm that is mobile. Measures 2 cm. Slight tenderness to palpation. There is a soft tissue mass distal volar radial aspect left forearm that is mobile. Measures 2.5 cm. Slight tenderness to palpation. Neurologic - cranial nerves II-XII grossly intact. Psych - alert and cooperative; normal mood and affect; normal attention span and concentration. ASSESSMENT 1. 6 mm mucous cyst dorsal radial aspect IP joint right thumb. 2. 2 cm soft tissue mass distal dorsal ulnar aspect left forearm. 3. 2.5 cm soft tissue mass distal volar radial aspect left forearm. 4. Personal history of skin cancer. 5. Former smoker. PLAN Xray reviewed. It showed degenerative changes of the thumb with no visualized osseous or soft tissue mass. Recommend excision of this mucous cyst dorsal radial aspect IP joint right thumb. Will send the cyst to Pathology for analysis to rule out carcinoma. She has some wedding shows in the next few weeks. Will schedule surgery later on in October. Surgery would be done under local anesthesia with a digital tourniquet and IV sedation on an outpatient basis. The overlying skin looks viable and if it can be salvaged then can close the incision primarily. If the overlying skin needs to be removed because of adherence of the cyst to the skin then reconstruction would be with a dorsal skin advancement flap. Depending on how much dissection is needed between the tendon and the bone to look for extensions of the mucous cyst will determine the need for a splint postop to keep the thumb extended during the healing process. The dissection between the tendon and the bone can weaken the tendon. It needs to strengthen before removing the splint. Usually a couple of weeks. At the time of the mucous cyst surgery, can also remove the soft tissue masses on her left forearm and send them to Pathology for analysis to rule out carcinoma. The patient was informed of the risks and complications of the procedure including alternatives to surgery. These were discussed with the patient personally. The patient voices understanding and wishes to proceed. Some of the risks and complications were included in a form from the [employer] [employer].
[2018-11-24 06:51] VITALS: BP 120/70; PULSE 67; RESP 14; TEMP 36.3; O2SAT 99; BMI 34.7
[2018-11-24] MEDS: Cefazolin 2 GM in 0.9% Normal Saline 100 ML IV (07:49)
--- NOTE | 2018-11-24 08:00 | BON_PTH ---
PATIENT: VLAD MACKAY LOC: [facility] [place] U#:[id number] AGE/SX: 63/F ROOM: RE11/24/[address]: Dr. Craig Robles MD : 1955 BED: DIS: 11/24/2018 SPEC #: [id number] RECD: 11/24/18 10:41 STATUS: PAULA REQ #: [id number] JEAN MARIE: 11/24/18 08:[address]: Craig Robles DEPT: SURGICAL PATHOLOGY RECD BY: Antoine Sheets ENTERED: 11/24/18 13:28 SP TYPE: Bone OTHR DR: Dr. Griffin Romero MD Tissues: A - Bone of hand, NOS B - Forearm, NOS C - Forearm, NOS Procedures: Decalcification bone/plaque Surgery Specimen Level III Surgery Specimen Level IV HEADER OPERATION: Excision soft tissue mass right thumb with skin flap PRE-OP DIAGNOSIS: 6 mm mucous cyst dorsal radial aspect IP joint right thumb; 2 cm soft tissue mass distal dorsal aspect ulnar aspect left forearm; 2.5 cm soft tissue mass distal volar radial aspect left forearm TISSUE SUBMITTED: A - Bone and soft tissue mass right thumb, B - Soft tissue mass volar radial aspect left forearm, C - Soft tissue mass distal dorsal ulnar aspect left forearm MICROSCOPIC DIAGNOSIS A. Bone and soft tissue of right thumb mass, biopsy: Fragments of hyaline cartilage and bone with reactive and reparative change. Skin with hyperkeratosis and solar elastosis. No evidence of malignancy. See comment. B. Soft tissue mass of left forearm, excision: Mature adipose tissue. See comment. C. Soft tissue mass of left forearm, excision: Mature adipose tissue consistent with angiolipoma. AM:beatrice 11/29/18 COMMENT A. Clinical correlation is suggested. B. The findings are consistent with lipoma. Clinical correlation is suggested. MICROSCOPIC DESCRIPTION Slides are reviewed. GROSS DESCRIPTION A - Received in fixative is one container labeled with the patient's name and designated bone and soft mass right thumb. The specimen consists of multiple irregular fragments of london-white skin, soft tissue and bone that in aggregate measure 1.5 x 1 x 0.3 cm. The entire specimen is submitted in one cassette after decalcification. B - Received in fixative is one container labeled with the patient's name and designated soft tissue mass volar radial aspect left forearm. The specimen consists of multiple irregular fragments of yellow adipose tissue that in aggregate measure 3 x 3 x 1 cm. Sections reveal yellow adipose cut surfaces without area of hemorrhage, necrosis or cystic degeneration. The entire specimen is submitted in two cassettes. C - Received in fixative is one container labeled with the patient's name and designated soft tissue mass distal dorsal ulnar aspect left forearm. The specimen consists of two irregular fragments of yellow adipose tissue measuring 2 x 1.5 x 0.5 cm and 1 x 0.5 x 0.2 cm. The larger piece is bisected and reveals yellow adipose cut surfaces without area of hemorrhagic, necrosis or cystic degeneration. The entire specimen is submitted in one cassette. / SJ:rg 11/24/18 TC:1 CPT: 32023, 66862 x2, 68900
[2018-11-24] MEDS: Mupirocin Ointment 22gm Tube 1 APPLIC (09:22)
--- NOTE | 2018-11-24 09:31 | OP.PCM_ITS ---
Report of Operation Date of Procedure: 11/24/18 Pre-Operative Diagnosis: 1. 6 mm mucous cyst dorsal radial aspect IP joint right thumb. 2. 2 cm soft tissue mass distal dorsal ulnar aspect left forearm. 3. 2.5 cm soft tissue mass distal volar radial aspect left forearm. 4. Personal history of skin cancer. 5. Former smoker. Post-Operative Diagnosis: Same. Surgery/Procedure Performed:: 1. Excision 6 mm mucous cyst dorsal radial aspect IP joint right thumb with dorsal advancement skin flap reconstruction (4 cm2). 2. Excision 2 cm soft tissue mass distal dorsal ulnar aspect left forearm with 2 cm layered closure. 3. Excision 2.5 cm soft tissue mass distal volar radial aspect left forearm with 2.5 cm layered closure. Description of Surgical Findings:: Patient comes in today for evaluation of soft tissue masses left forearm. She was scheduled to have a mucous cyst right thumb and a soft tissue mass distal dorsal ulnar left forearm excised and rescheduled it because of work issues. Since her last visit in 06/29, she noticed another soft tissue mass on her distal volar radial left forearm that has increased in size over the last couple of months. There is some discomfort when she bumps it. She denies any trauma. For her mucous cyst right thumb, her PCP had initially tried to aspirate it in the office and tried cauterizing it. She states it has gotten a little smaller but is persistent. She denies any functional issues. She denies any numbness. She denies any fever. She denies any trauma. She denies any bleeding. For her soft tissue mass on the distal dorsal ulnar aspect left forearm, there is some discomfort when she bumps it. She denies any trauma. She had an xray of her right thumb on 08/23/18 which showed degenerative changes of the thumb with no visualized osseous or soft tissue mass. Patient was informed of the risks and complications of the procedure including alternatives to surgery. These were discussed with the patient personally. Patient voices understanding and wishes to proceed. Some of the risks and complications were included in a form from the [employer]. Some of the risks and complications that were discussed included but were not inclusive of failure to diagnose including symptom relief, pain, infection, numbness, stiffness, loss of digit, RSD (CRPS), need for further surgery, contracture, and wound healing problems. Total tourniquet time - 33 minutes. research animal attendant: None Type of Anesthesia:: Local MAC - xylocaine with epinephrine and IV sedation. Specimen's removed: 1. Mucous cyst and bone dorsal radial aspect right thumb at IP joint to Pathology. 2. Soft tissue mass distal dorsal ulnar aspect left forearm to Pathology. 3. Soft tissue mass distal volar radial aspect left forearm to Pathology. Drains: None. Estimated Blood Loss (mL): 10 ml. Description of Procedure: Patient was taken to OR in supine position and was given IV sedation. The right hand and left forearm areas were prepped and draped in the usual fashion. SCD's were placed for DVT prophylaxis. Perioperative antibiotics were given intravenously. The right thumb was infiltrated with xylocaine and epinephrine with a digital metacarpal block. The soft tissue masses distal dorsal ulnar aspect left forearm and distal volar radial aspect left forearm were infiltrated with xylocaine and epinephrine. After waiting 5 minutes for the anesthetic to take effect, a digital tourniquet was placed at the base of the right thumb. Under loupe magnification, a horizontal elliptical incision was made over the mucous cyst dorsal radial aspect right thumb at IP joint. The cyst was adherent to the skin. It was also adherent to the edge of the extensor tendon and was dissected off the tendon. Some bony spurs were seen at the IP joint. A rongeur was used to remove these bony spurs to minimize recurrence. Because of the amount of skin that was excised, I will close the defect with an advancement skin flap. A longitudinal incision was made on the radial aspect extending proximal to the IP joint. Dissection was carried down to the extensor tendon. The extensor tendon was gently lifted up and no extension of the mucous cyst was seen underneath the tendon. The wound was irrigated with saline. The soft tissue mass and bone was sent to Pathology for analysis to rule out carcinoma. I advanced the dorsal skin flap distally to close the defect. Hemostasis was obtained with electrocautery. The wound was irrigated with saline. The tourniquet was released after 33 minutes. The wound was then closed with 5-0 Prolene simple interrupted and vertical mattress interrupted sutures. Antibiotic ointment was applied to the incision followed by 2x2 gauze and 2 inch Araceli wrap followed by a Coban compression dressing. The size of the defect and the size of the flap needed to close the defect was 4 cm2. I then made oblique incisions on the left forearm over the two soft tissue masses on the distal dorsal ulnar aspect and distal volar radial aspect. Dissection was carried into the subcutaneous tissue. The soft tissue masses were well encapsulated and easily dissected off the underlying muscular fascia. Once excised, they were sent to Pathology for analysis to rule out carcinoma. Hemostasis obtained with electrocautery. The wounds were irrigated with saline. The wounds were closed in a layered fashion with 4-0 Monocryl interrupted sutures for the deep dermis and subcutaneous tissue. The skin was approximated with 4-0 Prolene simple interrupted sutures. Antibiotic ointment was applied to the suture line followed by 4x4 gauze and a compression DARLENE wrap. Patient tolerated the procedure well and was sent to PACU in satisfactory condition. Patient will be sent home on antibiotics and pain medication. She will keep her arms elevated during the initial postop period. Patient will followup in a week for a wound check and for discussion of the pathology report. Sutures will be removed in two weeks. Grafts/Implants Used: None. - Complications None. - Admit VTE Documentation VTE Present on Admission: No VTE Mechan Device Prophylaxis: SCD's VTE Pharm Prophylaxis ordered?: No Code Visit Surgery Charges CPT - 79067 ICD-10 - M67.441, Z85.828, Z87.891 72110 M67.441, Z85.828, Z87.891 84753 R22.32, Z85.828, Z87.891 45904 R22.32, Z85.828, Z87.891
[2018-11-24 09:32] VITALS: BP 120/70; BP 132/92; PULSE 68; RESP 16; TEMP 36.2; O2SAT 92
[2018-11-24 09:37] VITALS: BP 120/70; BP 136/84; PULSE 68; RESP 16; O2SAT 94
--- NOTE | 2018-11-24 09:40 | PCM.DC ---
You will use the following diet at home:: No restrictions Discharge Activity: May not drive while taking narcotic pain medications., May Shower - in two days. wear plastic bag over right hand when showering., - - no heavy lifting right hand. May shower in (days): 2 - wear plastic bag over right hand when showering. May resume sexual activity in: No Restrictions Weight Bearing Status: Weight bearing as tolerated Lifting Restrictions: 20 lbs. Keep extremity elevated above heart level: Left Arm, Right Arm Call your doctor if your incision/area has: Continuous Slow Oozing, Sudden Increased Bleeding, Increased Pain/ Swelling, Increased Redness, Foul Smelling Discharge, Swelling at the incision site Call your doctor if you observe: Fever of 101 or Higher, Coldness, Increased Pain, Shortness of breath, Chest pain, Calf discomfort, Uncontrolled pain Suture Line Care: - - after dressings removed left forearm in two days apply antibiotic ointment to suture line daily. after dressing removed right thumb in the office in a week, apply antibiotic ointment to suture line daily. Change Dressing in (Days):: 2 - left forearm dressing only. will remove right thumb dressing in the office. Cleanse incision/area with: - - wear plastic bag over right hand when showering. may get left forearm incisions wet in the shower in two days. Allergies/Adverse Reactions: Allergies No Known Allergies Allergy (Verified 10/27/18 13:55) Medications to take at Discharge Hydrochlorothiazide [Hctz] 25 mg PO DAILY 05/21/14 Acetaminophen [Tylenol] 500 - 1,000 mg PO Q6H PRN PRN 10/27/18 Omeprazole Magnesium [Acid Tow Driver] 20 mg PO DAILY 10/27/18 Cefadroxil [Duricef] 500 mg PO BID #10 cap 11/24/18 Lactobacillus Acidophilus/Fos [Acidophilus Probiotic Tablet] 1 ea PO BID #10 tab 11/24/18 Oxycodone HCl/Acetaminophen [Percocet 5/325] 1 tab PO 4X/DAY PRN PRN 7 Days #30 tab 11/24/18 The following prescriptions were given: Oxycodone HCl/Acetaminophen [Percocet 5/325] 1 tab PO 4X/DAY PRN PRN 7 Days #30 tab PRN Reason: Pain Cefadroxil [Duricef] 500 mg PO BID #10 cap Lactobacillus Acidophilus/Fos [Acidophilus Probiotic Tablet] 1 ea PO BID #10 tab Primary Care Physician: Griffin Romero MD [Primary Care Provider] - Test Results: Test results from this visit will be discussed in further detail at your follow-up appointment, if applicable. Please Follow Up With: Craig Robles MD When: one week. call [phone] Proposed Discharge Date: 11/24/18
[2018-11-24 09:42] VITALS: BP 120/70; BP 128/68; PULSE 66; RESP 16; O2SAT 95
--- NOTE | 2018-11-24 09:44 | DCINST_ITS ---
You will use the following diet at home:: No restrictions Discharge Activity: May not drive while taking narcotic pain medications., May Shower - in two days. wear plastic bag over right hand when showering., - - no heavy lifting right hand. May shower in (days): 2 - wear plastic bag over right hand when showering. May resume sexual activity in: No Restrictions Weight Bearing Status: Weight bearing as tolerated Lifting Restrictions: 20 lbs. Keep extremity elevated above heart level: Left Arm, Right Arm Call your doctor if your incision/area has: Continuous Slow Oozing, Sudden Inc reased Bleeding, Increased Pain/ Swelling, Increased Redness, Foul Smelling Discharge, Swelling at the incision site Call your doctor if you observe: Fever of 101 or Higher, Coldness, Increased Pain, Shortness of breath, Chest pain, Calf discomfort, Uncontrolled pain Suture Line Care: - - after dressings removed left forearm in two days apply antibiotic ointment to suture line daily. after dressing removed right thumb in the office in a week, apply antibiotic ointment to suture line daily. Change Dressing in (Days):: 2 - left forearm dressing only. will remove right thumb dressing in the office. Cleanse incision/area with: - - wear plastic bag over right hand when showering. may get left forearm incisions wet in the shower in two days. Allergies/Adverse Reactions: Allergies No Known Allergies Allergy (Verified 10/27/18 13:55) Medications to take at Discharge Hydrochlorothiazide [Hctz] 25 mg PO DAILY 05/21/14 Acetaminophen [Tylenol] 500 - 1,000 mg PO Q6H PRN PRN 10/27/18 Omeprazole Magnesium [Acid Glass Cutting Machine Feeder] 20 mg PO DAILY 10/27/18 Cefadroxil [Duricef] 500 mg PO BID #10 cap 11/24/18 Lactobacillus Acidophilus/Fos [Acidophilus Probiotic Tablet] 1 ea PO BID #10 tab 11/24/18 Oxycodone HCl/Acetaminophen [Percocet 5/325] 1 tab PO 4X/DAY PRN PRN 7 Days #30 tab 11/24/18 The following prescriptions were given: Oxycodone HCl/Acetaminophen [Percocet 5/325] 1 tab PO 4X/DAY PRN PRN 7 Days #30 tab PRN Reason: Pain Cefadroxil [Duricef] 500 mg PO BID #10 cap Lactobacillus Acidophilus/Fos [Acidophilus Probiotic Tablet] 1 ea PO BID #10 tab Primary Care Physician: Griffin Romero MD [Primary Care Provider] - Test Results: Test results from this visit will be discussed in further detail at your follow- up appointment, if applicable. Please Follow Up With: Craig Robles MD When: one week. call [phone] Proposed Discharge Date: 11/24/18
[2018-11-24 09:49] VITALS: BP 120/70; BP 129/69; PULSE 64; RESP 16; TEMP 36.4; O2SAT 95
[2018-11-24 11:10] VITALS: BP 120/70; BP 154/88; PULSE 69; RESP 16; TEMP 36.2; O2SAT 100
== END 2018-11-24 11:38 | disposition home or self-care (01) ==
LOC: SDC 06:18 → AC 06:20
PROVIDERS: Family Provider Family Medicine; PCP Family Medicine; Referring Provider Surgery; Visit Provider Surgery
PROC: (CPT 14040; principal; 2018-11-24 07:50)
DX: D17.22 Benign lipomatous neoplasm of skin and subcutaneous tissue of left arm (principal); L57.8 Other skin changes due to chronic exposure to nonionizing radiation; M67.441 Ganglion, right hand; K21.9 Gastro-esophageal reflux disease without esophagitis; I10 Essential (primary) hypertension; Z85.828 Personal history of other malignant neoplasm of skin; Z87.891 Personal history of nicotine dependence
CPT/HCPCS: 00300; 14040; 25075; 26160; 88304; 88305; 88311; J7120; J2405

== ENCOUNTER → 2019-01-09 14:54 | Outpatient (CLI) | payer MEDICAID, SELFPAY ==
[2019-01-09 14:38] VITALS: BMI 34.7
--- NOTE | 2019-01-09 14:55 | RAD_ITS ---
STUDY: X-RAY - LEFT KNEE REASON FOR EXAM: Female, 63 years old. Pain TECHNIQUE: 4 view(s) of the knee. COMPARISON: None. FINDINGS: Osteopenia. Small to moderate suprapatellar knee joint effusion. Periarticular soft tissues normal. Patellofemoral compartment mild joint margin osteophytic lipping. Lateral compartment mild joint margin osteophytic lipping without apparent joint space narrowing. View compartment prominent joint space narrowing, flattening of the articular surface of the femoral condyle, moderate joint margin osteophytic lipping. 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 Small effusion. Electronically Signed: Jm Mendoza MD at 16:04 EDT Tel , Service support ,
--- NOTE | 2019-01-09 14:55 | RAD_ITS ---
STUDY: X-RAY - RIGHT KNEE REASON FOR EXAM: Female, 63 years old. Pain TECHNIQUE: 4 view(s) of the knee. COMPARISON: None. FINDINGS: There is no evidence of fracture or dislocation. There are moderate degenerative changes in the medial compartment of the right knee. There are no radiodense foreign bodies. RAD/Knee 4 or More Views IMPRESSION: No fracture or dislocation in the right knee. Moderate degenerative changes in the medial compartment. Electronically Signed: Seun Vidales, at 20:16 EDT Tel , Service support ,
== END ==
PROVIDERS: Family Provider Family Medicine; PCP Family Medicine; Referring Provider Orthopaedic Surgery; Visit Provider Orthopaedic Surgery
DX: R52 Pain, unspecified (principal)
CPT/HCPCS: 73564

== ENCOUNTER → 2019-01-31 15:06 | Outpatient (CLI) | payer MEDICAID, SELFPAY ==
[2019-01-17 14:51] VITALS: BMI 33.6
[2019-01-31 17:39] LABS: Absolute Lymphocyte Count 1.35 X10^3/ul (0.83-4.51); Absolute Neutrophil Count 4.1 X10^3/uL (2.0-7.7); Basophil# 0.03 X10^3/uL; Basophil% 0.5 % (0-1); Eosinophil# 0.04 X10^3/uL; Eosinophils% 0.7 % (0-5); Hematocrit 41.6 % (37-47); Hemoglobin 13.4 g/dl (12.0-15.0); Lymphocyte # 1.35 X10^3/ul (4.0); Lymphocyte % 22.3 % (19-41); Mean Corp Hgb Conc 32.2 g/gl (32-36); Mean Corpuscular Volume 93.3 fL (81-99); Mean Platelet Vol. 9.2 fl (6.2-12.0); Monocyte# 0.54 X10^3/uL; Monocyte% 8.9 % (0-10); Neutrophil # 4.09 X10^3/uL (2.7-7.7); Neutrophil % 67.4 % (47-70); Platelet Count 259 K/mm3 (150-450); RBC Distribution Width CV 13.2 % (11.6-14.6); RBC Distribution Width SD 44.8 fl (35.1-43.9); Red Blood Count 4.46 M/mm3 (4.2-5.4); White Blood Count 6.1 K/mm3 (4.4-11.0)
[2019-01-31 17:41] LABS: Anion Gap 6 (5-15); BUN 13 mg/dL (7-18); Calcium,Total 9.4 mg/dL (8.5-10.1); Chloride 101 mmol/L (98-107); Creatinine, Serum 0.87 mg/dL (0.55-1.02); EST Glomerular Filtration Rate 70 mL/min (>60); Est Glom Filt Rate - Afr Amer 84 mL/min (>60); Glucose 76 mg/dL (74-106); Potassium 3.8 mmol/L (3.5-5.1); Sodium Level 138 mmol/L (136-145)
[2019-01-31 17:45] LABS: POSITIVE COUNT NO; POSITIVE DIFFERENTIAL NO; POSITIVE MORPHOLOGY NO
== END ==
PROVIDERS: Family Provider Family Medicine; PCP Family Medicine; Referring Provider Family Medicine; Visit Provider Family Medicine
DX: Z71.89 Other specified counseling (principal)
CPT/HCPCS: 36415; 80048; 85025

== ENCOUNTER → 2019-02-14 | Outpatient (CLI) | payer MEDICAID, SELFPAY ==
[2019-01-17 14:51] VITALS: BMI 33.6
--- NOTE | 2019-02-14 14:30 | LES_PTH ---
PATIENT: VLAD MACKAY LOC: [facility] U#:[id number] AGE/SX: 63/F ROOM: RE02/14/[address]: Dr. Griffin Romero MD : 1955 BED: DIS: 02/14/2019 SPEC #: [id number] RECD: 02/14/19 15:27 STATUS: PAULA ALETA #: [id number] JEAN MARIE: 02/14/19 14:[address]: Griffin Romero DEPT: SURGICAL PATHOLOGY RECD BY: Fabrizio Schmitt Tissues: Skin of leg, NOS Procedures: Surgery Specimen Level IV HEADER OPERATION: Suspicious skin lesion PRE-OP DIAGNOSIS: Suspicious skin lesion, history of skin cancer TISSUE SUBMITTED: Right leg neoplasm MICROSCOPIC DIAGNOSIS Right leg skin lesion, biopsy: Hyperkeratosis and solar elastosis. Focal fibrinous exudation and dystrophic calcification. Negative for malignancy. SJ:beatrice 02/16/19 COMMENT Please make reference to previous specimen ([id number]) left leg suspicious lesion, excisional biopsy with diagnosis of squamous cell carcinoma in situ and ([id number]) skin lesion, left medial thigh, shave biopsy with diagnosis of actinic keratosis and solar elastosis and 1.3 cm squamous cell carcinoma in situ, left anterior leg, excisional biopsy with diagnosis of dermal fibrosis consistent with scar. MICROSCOPIC DESCRIPTION Slides are reviewed. GROSS DESCRIPTION Received in fixative is one container labeled with the patient's name and designated right skin lesion leg. The specimen consists of a discoid fragment of light pink-london soft tissue consistent with punch biopsy with an average diameter of 0.5 cm and a maximal length of 0.4 cm. The specimen is inked, bisected and totally submitted in one cassette. / AM:beatrice 02/15/19 TC:5 CPT: 08666
== END | disposition home or self-care (01) ==
LOC: LABSPEC 15:39
PROVIDERS: Family Provider Family Medicine; PCP Family Medicine; Referring Provider Family Medicine; Visit Provider Family Medicine
DX: L85.9 Epidermal thickening, unspecified (principal); L57.8 Other skin changes due to chronic exposure to nonionizing radiation; Z85.828 Personal history of other malignant neoplasm of skin
CPT/HCPCS: 88305

== ENCOUNTER 2019-03-20 08:18 | Inpatient (IN) | payer MEDICARE, MEDICAID, SELFPAY ==
[2019-01-17 14:51] VITALS: BMI 33.6
[2019-03-14 15:14] VITALS: BMI 33.6
[2019-03-20] VITALS (15 sets, daily range): BP systolic 105–157; BP diastolic 57–114; PULSE 72–93; RESP 14–18; TEMP 36.1–36.8; O2SAT 93–100; BMI 33.5
[2019-03-20] MEDS: Celecoxib 200 MG Capsule PO (09:20)
[2019-03-20] MEDS: Acetaminophen 500 MG Tablet PO (09:20)
[2019-03-20] MEDS: oxyCODONE HCl Cr 10 MG Tablet PO ×2 (09:21→22:23)
[2019-03-20] MEDS: Pregabalin 75 MG Capsule PO (09:21)
--- NOTE | 2019-03-20 09:31 | HP.PCM_ITS ---
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 Accompanied by: None Is patient in pain?: Yes (bilateral knees) Pain scale (1-10): 7 Allergies No Known Allergies Allergy (Verified 03/07/19 09:17) Medications Hydrochlorothiazide [Hctz] 25 mg PO DAILY 05/21/14 [History Confirmed 03/14/19] Acetaminophen [Tylenol] 500 - 1,000 mg PO Q6H PRN PRN 10/27/18 [History Confirmed 03/14/19] Omeprazole Magnesium [Acid It Support Technician] 20 mg PO DAILY 10/27/18 [History Confirmed 03/14/19] Naproxen Sodium [Aleve] 220 mg PO DAILY PRN 03/07/19 [History Confirmed 03/14/19] Oxycodone HCl/Acetaminophen [Oxycodone-Acetaminophen 5-325] 1 ea PO DAILY PRN 03/07/19 [History Confirmed 03/14/19] [facility] Medical History (Updated 12/02/18 @ 10:48 by Craig Robles MD) Actinic keratosis (Acute) Actinic skin damage (Acute) Angiolipoma (Acute) Arthritis (Acute) Compound nevus (Acute) Ganglion cyst (Acute) Lipoma (Acute) Squamous cell carcinoma in situ (Acute) Hypertension (Chronic) Surgical History (Updated 11/26/18 @ 10:18 by Craig Robles MD) H/O excision of ganglion cyst (Acute) History of excision of mass (Acute) History of excision of mass (Acute) History of squamous cell carcinoma excision (Acute) History of tubal ligation (Acute) Status post excision of lipoma (Acute) Family History (Updated 10/17/17 @ 11:02 by Jammie Bueno) Mother Anxiety Asthma Bleeding disorder Depression Hypertension COPD (chronic obstructive pulmonary disease) Brother Bleeding disorder Depression Hypertension COPD (chronic obstructive pulmonary disease) Social History (Updated 03/14/19 @ 16:39 by Bari Queen DO) Smoking Status: Former smoker second hand exposure: No alcohol intake: former substance use type: does not use what type of physical activity do you participate in: walking frequency: 1-2 times per week seatbelt use: never do you feel safe at home: Yes additional social history: SUN EXPOSURE: FREQUENTLY HPI RIGHT KNEE: Surgical H&P: Yes Details: Parts of this documentation were recorded by a scribe, this documentation accurately reflects the service provided and the decisions made by me, Bari Queen DO 03/14/19 0756. VLAD MACKAY is a 63 year old F here today for bilateral knee pain. Rates pain as 7/10 and describes pain as constant. The pain does radiate up her right knee into her hip and back. Pain is made worse with use of her knees. Ice or heat occasionally help with the pain along with rest. Denies numbness and tingling. Does note swelling and popping and clicking. States her right knee does give out on her. Patient has surgery scheduled for March 20, 2019. Ortho Exam Right Knee Skin/Wound: Yes CDI, No erythema, No ecchymosis, No swelling Homans Sign: No Knee ROM: Yes ROM-Extension -20 to 0, Yes ROM-Flexion 0-140 (115) Examination: Yes Med jt line tenderness, No Lat jt line tenderness, Yes TTP Pes Anserine (mild) Stability: NML: Anterior Drawer, NML: Valgus 30, NML: Varus 30 Patella Translation: 1 Apprehension with Lateral Translation: No Patella Grind: Yes KNEE: prominent varicose veins, mild swelling bilaterally. Left Knee Skin/Wound: No ecchymosis, No erythema, No swelling Homans Sign: No Knee ROM: Yes ROM-Extension -20 to 0, Yes ROM-Flexion 0-140 (110) Examination: Yes med jt line tenderness, Yes Lat jt line tenderness Stability: NML: Anterior Drawer, NML: Posterior Drawer, NML: Valgus 30, NML: Varus 30 Patella Translation: 1 Apprehension with Lateral Translation: No Patella Grind: Yes Assessment & Plan Problems 1. Bilateral primary osteoarthritis of knee M17.0 Plan Reviewed the procedure and the difference between a robotic replacement and traditional. Discussed the pain medication post op and that she should use it while she works on rom to decrease chance of stiffness. Risks, benefits and alternatives of surgery reviewed including but not limited to bleeding, infection, nerve, artery and/or tissue damage, fracture, VTE, mechanical feel of the knee, continued pain, stiffness and expected post- operative course. Follow up post op or sooner if pain, swelling, numbness or associated symptoms, or concerns develop. All questions answered. Patient in agreement of plan. Coding Level of Care Code Off vis,est,level 3 Diagnoses Bilateral primary osteoarthritis of knee M17.0 I have re-examined the patient. There are no clinical changes since date of exam
[2019-03-20] MEDS: Cefazolin 2 GM in 0.9% Normal Saline 100 ML IV ×2 (10:25→18:39)
[2019-03-20] MEDS: Morphine 4 MG/ML Syringe (13:28)
[2019-03-20] MEDS: Bupivacaine 0.5% PF 10 ML VIAL (13:28)
[2019-03-20] MEDS: Epinephrine (1 mg/ml) 1 MG/ML VIAL (13:28)
--- NOTE | 2019-03-20 14:03 | RAD_ITS ---
STUDY: X-RAY - LEFT KNEE REASON FOR EXAM: Postop. TECHNIQUE: 2 view(s) of the knee. COMPARISON: Radiographs 01/09/2019. FINDINGS: There is a left total knee arthroplasty without evidence of complication. There is gas in the knee joint and anterior soft tissues. There are overlying skin heather. RAD/Knee 1 or 2 Views IMPRESSION: Uncomplicated left total knee arthroplasty. Electronically Signed: Atif Reich MD at 15:44 EDT Tel , Service support ,
--- NOTE | 2019-03-20 14:03 | RAD_ITS ---
STUDY: X-RAY - RIGHT KNEE REASON FOR EXAM: Postop. TECHNIQUE: 2 view(s) of the knee. COMPARISON: Radiographs 01/09/2019. FINDINGS: There is a right total knee arthroplasty without evidence of complication. There is gas in the knee joint and anterior soft tissues. There are overlying heather. RAD/Knee 1 or 2 Views IMPRESSION: Uncomplicated right total knee arthroplasty. Electronically Signed: Atif Reich MD at 15:21 EDT Tel , Service support ,
--- NOTE | 2019-03-20 14:08 | PCM.OPRPT ---
Report of Operation Date of Procedure: 03/20/19 Description of Surgical Findings:: Preoperative diagnosis: Bilateral knee DJD Postoperative diagnosis: Same Procedure: Bilateral total knee arthroplasty Implant: Right: :[place] triathlon cemented right femoral component size 5, cemented tibial baseplate size 4, cemented asymmetric patella size 32, polyethylene X3 size 9 CS Left:[place] triathlon cemented left femoral component size 5, cemented tibial baseplate size 5 cemented asymmetric patella size 32, polyethylene X3 size 9 CS Anesthesia: General with adductor canal block Tourniquet time: 300 mmHg Complications: None Condition: Stable to PACU Estimated blood loss: 50 cc Indication for procedure: This is a 63-year-old female with long standing degenerative joint disease of bilateral knees who has failed conservative treatment and wished to proceed with elective total knee arthroplasties. Risk benefits and alternatives were reviewed including; risk of bleeding, infection, nerve artery and tissue damage, continued pain, postoperative stiffness, venous thromboembolism, need for postoperative rehabilitation, mechanical feel to the knee, and expected postoperative course and increased risk with doing bilateral joint procedure at the same time. Procedure: The patient was met in the preoperative holding area. The operative extremity was identified by both patient and physician and was marked. Patient was met by anesthesia. An adductor canal block was placed by anesthesia postoperatively the patient was brought back to the operating room on a wheeled cart and transferred to the operating table in the supine position. Anesthesia was started. A well-padded tourniquet was placed on the operative extremity. The patient was prepped and draped in the usual sterile fashion. A timeout was called to ensure the proper patient procedure and extremity were being contemplated. An Esmarch was used to exsanguinate the extremity. The tourniquet was inflated. A 10 blade scalpel was used to make a midline incision down through the skin and subcutaneous tissue. Skin retractors placed. Bovie was used to perform meticulous hemostasis. full-thickness flaps were elevated medial and lateral along the joint capsule. A deep blade scalpel was used to perform a medial parapatellar arthrotomy. The knee was brought to full extension. A Bovie was used to release the soft tissues off the most proximal aspect of the medial tibial plateau a three-quarter inch curved osteotome was also used for this process. The infrapatellar fat pad was excised. The fat pad was excised partially anterior lateral portion the anterior medial was elevated from the femur. the patella was everted. The knee was brought into flexion. An intramedullary drill was used followed by flexible intramedullary guide gil. The distal femoral cutting block was placed and set to remove 10 mm of bone and 5 degrees of valgus. The block was secured with pins and an oscillating saw was used to complete the distal femoral cut. During this, and all bony cuts retractors were used to protect the collateral ligaments. At this point a femoral sizer was used to measure the AP dimension of the femur. The sizer block was pinned in 3 degrees of external rotation. The sizing block was removed and the appropriately sized 4-in-1 cutting block was placed over the previously made pinholes. It was checked with an hannah wing and the block was secured with pins. An oscillating saw was used to complete the anterior cut followed by the posterior cut followed by the posterior chamfer cut followed by the anterior chamfer cut. The block was removed as well as the fragments. A ronguer was used to remove excess osteophytes. The medial and lateral meniscus were excised as well as the ACL. At this point a PCL retractor was placed and an intramedullary drill was passed down the tibial canal followed by a solid intramedullary guide gil. The tibial cutting block was attached and set to remove 9 mm of bone from the high side. This was checked with an external alignment drop gil for slope and tilt. It was pinned into place. An oscillating saw was used to complete the tibial plateau cut and the block was removed. A large osteotome was used to elevate the fragment and a Cece and a Bovie were used to free the fragment from the surrounding soft tissue. A rongeur was once again used to remove osteophytes a lamina expenditure requisition clerk was used to evaluate the posterior capsular structures. A three-quarter inch curved osteotome was used to remove posterior osteophytes. A spacer block was inserted in both extension and flexion to ensure adequate spacing. Trials were inserted full extension and flexion were achieved in varus and valgus stability throughout range of motion were seen, balancing techniques were performed. At this point the attention was turned towards the patella. A caliper was used to ensure sufficient bone stock to remove 10 mm of bone. A reamer was used to perform this task. Lug holes were made for the appropriate-sized patella. The patella trial was inserted and there was good patellar tracking with knee range of motion. The tibial baseplate was allowed to float into rotation and was marked on the tibial plateau with a Bovie. Lug holes were made in the femur and trials were removed. The tibial baseplate was then sized and its preparation was completed with a fin punch. The knee was thoroughly irrigated. A posterior capsular injection was performed with our standard cocktail. The knee was brought into flexion and irrigated again. The tibial baseplate was cemented. Excess cement was removed with curettes. The polyethylene component was inserted. The femoral component was cemented. The knee was brought into full extension and placed on a bump. The patellar component was cemented. At this point a Betadine rinse was placed and thoroughly irrigated after a few minutes. This was followed by an Iricept rinse which was allowed to sit for 1 minute and then thoroughly irrigated.At this point all gloves were changed. The knee was thoroughly irrigated the joint capsule was closed with #1 Ethibond. Tourniquet was let down followed by 0 Vicryl and 2-0 Vicryl in the subcutaneous tissues. followed by heather in the skin. Dressing was applied in the form of Xeroform 4 x 4 ABD web roll and an Trav wrap from the foot to the groin. All drapes were removed and new instrumentation was brought in and the procedure was repeated for the left knee. The patient tolerated the procedures well, all counts were correct patient was brought back to the PACU in stable condition.
[2019-03-20] MEDS: HYDROmorphone 1 MG/ML Syringe 0.5 MG IV (16:49)
[2019-03-20] MEDS: Lactated Ringers 1,000 ML 125 ML IV ×2 (18:37)
[2019-03-20] MEDS: Ketorolac 15 MG/ML Vial IV (18:39)
[2019-03-20] MEDS: Ondansetron 4 MG/2 ML Vial IV (18:39)
[2019-03-20] MEDS: Senna/Docusate Sodium 1 Tablet 2 TABLET PO (22:18)
[2019-03-20] MEDS: Acetaminophen 500 MG Tablet 1000 MG PO (22:18)
[2019-03-20] MEDS: APIXABAN 2.5 MG TABLET PO (22:19)
[2019-03-21 02:00] VITALS: BP 129/73; PULSE 92; RESP 18; TEMP 36.9; O2SAT 99
[2019-03-21] MEDS: Cefazolin 2 GM in 0.9% Normal Saline 100 ML IV (02:26)
[2019-03-21] MEDS: oxyCODONE 5 MG Tablet PO ×4 (02:32→20:31)
[2019-03-21] MEDS: Acetaminophen 500 MG Tablet 1000 MG PO ×3 (06:00→21:56)
--- NOTE | 2019-03-21 06:18 | PCM.PN.ORT ---
Subjective: Seen and examined doing very well pain controlled no complaints of fevers chills nausea vomiting shortness of breath chest pain - Physical Exam General: Alert, Oriented x3, Cooperative, No apparent distress Extremities: - - Bilateral knee dressings clean dry and intact neuro vascular intact bilateral lower extremities compartments soft thighs and calves Vital Signs Temp Pulse Resp BP Pulse Ox 98.5 F 92 18 129/73 H 99 03/21/19 02:00 03/21/19 02:00 03/21/19 02:00 03/21/19 02:00 03/21/19 02:00 Oxygen Flow Rate (L/min) 4 Oxygen Delivery Method Room Air Weight: 177 lb 11.081 oz Body Mass Index (BMI) 33.5 Intake and Output for Last 24 Hours 03/19/19 03/20/19 03/21/19 23:59 23:59 23:59 Intake Total 2287 / 2287 Balance 2287 / 2287 Medical Necessity - Tobacco Use Smoking Status: Former smoker Assessment/Plan Postop day #1 bilateral total knee arthroplasty doing well Possible discharge home today this afternoon after second round of physical therapy home health care Eliquis 2.5 mg twice daily for 14 days post hospital discharge Dressings to be changed prior to discharge May begin showering postop day #3
--- NOTE | 2019-03-21 06:27 | DCINST_ITS ---
Discharge Diet: No Restrictions Call your doctor if you observe: Fever of 101 or Higher, Shortness of breath, Chest pain Additional Dressing/Incision Instructions:: Ice and elevate next week while not ambulating. Encourage ambulation weightbearing as tolerated. Encourage FULL knee extension and flexion 1 time EVERY time you get up and down and MULTIPLE times per day. Begin showering postop day #3. Remove the dressing prior to shower gently wash with warm water and antibacterial soap then pat dry place ABD pad and JESUS hose over top. This is to be done daily. If not showering daily must clean incision and change dressing daily. Do not allow animals near incision keep clean. Follow anticoagulation recommendations. Call Dr. Queen with any concerns. Allergies/Adverse Reactions: Allergies No Known Allergies Allergy (Verified 03/07/19 09:17) Medications to take at Discharge Hydrochlorothiazide [Hctz] 25 mg PO DAILY 05/21/14 Acetaminophen [Tylenol] 500 - 1,000 mg PO Q6H PRN PRN 10/27/18 Omeprazole Magnesium [Acid Forensic Psychologist] 20 mg PO DAILY 10/27/18 Acetaminophen [Tylenol] 1,000 mg PO Q8 #100 tab 03/21/19 Apixaban [Eliquis] 2.5 mg PO BID 14 Days #28 tab 03/21/19 Oxycodone [Oxyir] 5 - 10 mg PO Q4H PRN PRN 7 Days #60 tablet 03/21/19 The following prescriptions were given: Apixaban [Eliquis] 2.5 mg PO BID 14 Days #28 tab Transmission Status: Pending to [facility] Oxycodone [Oxyir] 5 - 10 mg PO Q4H PRN PRN 7 Days #60 tablet PRN Reason: Mild-Mod Pain (-01/19) Transmission Status: Sent to [facility] Acetaminophen [Tylenol] 1,000 mg PO Q8 #100 tab Transmission Status: Pending to [facility] Primary Care Physician: Griffin Romero MD [Primary Care Provider] - Test Results: Test results from this visit will be discussed in further detail at your follow- up appointment, if applicable. Please Follow Up With: Bari Queen DO - 2 weeks
--- NOTE | 2019-03-21 06:28 | DS.PCM_ITS ---
Discharge Date and Diagnosis Date of Admission: 03/20/19 Date of Discharge: 03/21/19 - Secondary Discharge Diagnosis Chronic Problems (Last Updated 10/17/17 @ 10:37 by Jammie Bueno) Lipoma of forearm (Chronic) 2.5 cm lipoma distal volar radial aspect left forearm Cutaneous angiolipoma (Chronic) 2 cm angiolipoma distal dorsal ulnar aspect left forearm Mass of left forearm (Chronic) 2 cm soft tissue mass distal dorsal ulnar aspect left forearm 2.5 cm soft tissue mass distal volar radial aspect left forearm Ganglion cyst of joint of finger of right hand (Chronic) 6 mm mucous cyst dorsal radial aspect IP joint right thumb Mass of soft tissue of left lower extremity (Chronic) 2 cm soft tissue mass left lateral knee Former smoker (Chronic) 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 lateral lip Neoplasm of unspecified behavior of bone, soft tissue, and skin (Chronic) 5 mm lesion left posterior leg, proximal 5 mm lesion right posterior thigh, distal Personal history of skin cancer (Chronic) Ganglion cyst of volar aspect of right wrist (Chronic) M67.431 1.5 cm ganglion cyst right volar radial wrist Mass of soft tissue of right upper extremity (Chronic) 2 cm soft tissue mass right forearm 6 cm painful soft tissue mass right medial elbow 4 cm painful soft tissue mass right lateral elbow 2 cm painful soft tissue mass right antecubital area 5 cm painful soft tissue mass right mid volar ulnar forearm 2 cm painful soft tissue mass right mid dorsal ulnar forearm Dysesthesia (Chronic) R20.8 dysesthesia bilateral upper extremities and right lower lateral back Smoker (Chronic) F17.200 Hospital Course and Treatment Summary of Care Provided: The patient is a 63 year old F who has long history of degenerative joint disease to the bilateral knee who has failed conservative treatment and wished to undergo elective total knee arthroplasty. Patient underwent the aformentioned procedure on the admission date without any intraoperative complications. She did receive pre-and postoperative antibiotics which were discontinued within 23 hours postoperatively. She did receive spinal anesthesia as well as an adductor canal block postoperatively her pain was controlled with IV and transition to p.o. pain medication she will be discharged home with oxycodone and will continue Tylenol as well. She had minimal intraoperative blood loss and tranexamic acid was administered there was no need for postoperative blood transfusion her vital signs remained stable. She was started on both mechanical and chemical DVT per prophylaxis postoperatively in the form of SCDs JESUS hose and Eliquis 2.5 mg twice daily for which she will continue for 2 additional weeks post hospital discharge. Her dressing was changed prior to discharge without any concerning signs she will begin showering on postop day #3 and will change her dressing daily at this point. She will follow-up in the office in 2 weeks. No intrahospital complications. - Physical Exam General: Alert, Oriented x3, Cooperative Vital Signs Temp Pulse Resp BP Pulse Ox 98.5 F 92 18 129/73 H 99 03/21/19 02:00 03/21/19 02:00 03/21/19 02:00 03/21/19 02:00 03/21/19 02:00 Oxygen Flow Rate (L/min) 4 Oxygen Delivery Method Room Air Weight: 177 lb 11.081 oz Body Mass Index (BMI) 33.5 Intake and Output for Last 24 Hours 03/19/19 03/20/19 03/21/19 23:59 23:59 23:59 Intake Total 2287 / 2287 Balance 2287 / 2287 Laboratory Tests Past 24 Hrs 03/21/19 03/21/19 05:36 05:36 WBC Pending RBC Pending Hgb Pending Hct Pending MCV Pending MCH Pending MCHC Pending RDW Pending RDW Differential Pending Plt Count Pending Sodium Pending Potassium Pending Chloride Pending Carbon Dioxide Pending Anion Gap Pending BUN Pending Creatinine Pending Est GFR (MDRD) Af Amer Pending Est GFR (MDRD) Non-Af Pending BUN/Creatinine Ratio Pending Glucose Pending Calcium Pending Discharge Diet: No Restrictions Call your doctor if you observe: Fever of 101 or Higher, Shortness of breath, Chest pain Additional Dressing/Incision Instructions:: Ice and elevate next week while not ambulating. Encourage ambulation weightbearing as tolerated. Encourage FULL knee extension and flexion 1 time EVERY time you get up and down and MULTIPLE times per day. Begin showering postop day #3. Remove the dressing prior to shower gently wash with warm water and antibacterial soap then pat dry place ABD pad and JESUS hose over top. This is to be done daily. If not showering daily must clean incision and change dressing daily. Do not allow animals near incision keep clean. Follow anticoagulation recommendations. Call Dr. Queen with any concerns. Home Medications: Medications to take at Discharge Hydrochlorothiazide [Hctz] 25 mg PO DAILY 05/21/14 Acetaminophen [Tylenol] 500 - 1,000 mg PO Q6H PRN PRN 10/27/18 Omeprazole Magnesium [Acid Composer Teaching Artist] 20 mg PO DAILY 10/27/18 Acetaminophen [Tylenol] 1,000 mg PO Q8 #100 tab 03/21/19 Apixaban [Eliquis] 2.5 mg PO BID 14 Days #28 tab 03/21/19 Oxycodone [Oxyir] 5 - 10 mg PO Q4H PRN PRN 7 Days #60 tablet 03/21/19 Following Prescrptions Were Given to Patient: Apixaban [Eliquis] 2.5 mg PO BID 14 Days #28 tab Transmission Status: Pending to [facility] Oxycodone [Oxyir] 5 - 10 mg PO Q4H PRN PRN 7 Days #60 tablet PRN Reason: Mild-Mod Pain (-01/19) Transmission Status: Sent to [facility] Acetaminophen [Tylenol] 1,000 mg PO Q8 #100 tab Transmission Status: Pending to [facility] Primary Care Physician: Griffin Romero MD [Primary Care Provider] - Please Follow Up With: Bari Queen DO - 2 weeks Medical Necessity - Tobacco Use Smoking Status: Former smoker Meaningful Use Info Meaningful Use Diagnoses (Choose all that apply): None applicable
[2019-03-21 06:34] LABS: Hematocrit 35.4 % (37-47); Hemoglobin 11.9 g/dl (12.0-15.0); Mean Corp Hgb Conc 33.6 g/gl (32-36); Mean Corpuscular Hgb 30.7 pg (27.0-32.0); Mean Corpuscular Volume 91.5 fL (81-99); Mean Platelet Vol. 10.4 fl (6.2-12.0); Platelet Count 133 K/mm3 (150-450); RBC Distribution Width SD 43.3 fl (35.1-43.9); Red Blood Count 3.87 M/mm3 (4.2-5.4); White Blood Count 7.2 K/mm3 (4.4-11.0)
[2019-03-21 06:37] LABS: Scan Indicated on CBC? Y/N NO
[2019-03-21 06:57] LABS: Anion Gap 7 (5-15); BUN 20 mg/dL (7-18); BUN/Creat Ratio 31.2 RATIO (10-20); Calcium,Total 8.3 mg/dL (8.5-10.1); Chloride 106 mmol/L (98-107); Creatinine, Serum 0.64 mg/dL (0.55-1.02); EST Glomerular Filtration Rate 99 mL/min (>60); Est Glom Filt Rate - Afr Amer 120 mL/min (>60); Estimated Creatinine Clearance 67.01 ml/min; Glucose 98 mg/dL (74-106); Potassium 3.8 mmol/L (3.5-5.1); Sodium Level 138 mmol/L (136-145)
[2019-03-21 09:53] VITALS: BP 150/74; PULSE 86; RESP 18; TEMP 36.7; O2SAT 98
[2019-03-21] MEDS: Senna/Docusate Sodium 1 Tablet 2 TABLET PO ×2 (10:05→21:55)
[2019-03-21] MEDS: APIXABAN 2.5 MG TABLET PO ×2 (10:05→21:55)
[2019-03-21] MEDS: Pantoprazole Sodium 20 MG Tablet PO (10:05)
[2019-03-21] MEDS: oxyCODONE HCl Cr 10 MG Tablet PO (10:05)
[2019-03-21] MEDS: hydroCHLOROthiazide 25 MG Tablet PO (10:06)
--- NOTE | 2019-03-21 11:30 | CASEMGMT ---
Addendum entered by Torin Jang 03/22/19 17:06: 03/21/19: 1105: LAWSON form reviewed with patient and questions answered. LAWSON form signed by pt, copy made and placed on chart, and original given to pt. Pt will be going home on Eliquis @ discharge. Call placed to to [facility] and pt's [id number] cost will be less than $2. Original Note: RN CM TROUSSEAU CONSULTANT CM to room to meet with patient for initial transition planning/care coordination assessment. RN CM introduced self and role at [facility]. Pt voices understanding and consents to assessment at this time. Pt resting in bed in no distress at this time. Pt is A/O at this time and answers all questions appropriately. Care providers, pharmacy, and demographics verified/updated at this time. PCP: Nick Specialists: Nae Robles Preferred Pharmacy: [facility] Insurance: [employer], [employer] Prescription Benefit: Yes Living Will/HPOA: Has both LW and HCPOA who is his son, Rafael Baez LNOK: Son Living Arrangements: Lives alone in mobile home. Couple steps to enter. Was independent prior to surgery/admission. Has neighbors and family close by that can help if needed. She states she is going to have meals delivered to her home from [employer], a service provided through [employer] after hospitalization. She states they informed her they can provide 2 meals/day for 5 days. Transportation: Pt states drove self prior to surgery. Son will drive pt home @ discharge. Denies transportation concerns. DME: has the following DME: shower chair, rails/grab bars, hand held shower, walker that she paid for [id number] that she uses in the home. Pt states she would like to get a walker through her insurance that she can use outdoors. She states she has white carpet and does not want to use the same walker in the home that she uses outdoors. She requests a standard walker without wheels. She states she prefers [employer] for DME company. HHC/SNF: No history of either. States she would like to go home with [facility] and prefers [facility]. Call placed to [facility] and spoke with Doretha. Referral made. Doretha states they are able to accept pt. Pt wishes to return home and states has no concerns with going home at time of discharge. CM to follow for any further discharge planning/needs. Pt voices no further concerns/needs at this time. Advised pt to ask for CM if any further questions/concerns/needs arise. Voices understanding. PLAN: Home with [facility]. Kassie WAGNER RN CM
[2019-03-21 14:46] VITALS: BP 126/79; PULSE 102; RESP 18; TEMP 37.7; O2SAT 96
[2019-03-21] MEDS: Ketorolac 15 MG/ML Vial IV (16:36)
[2019-03-21 20:17] VITALS: BP 141/82; PULSE 100; RESP 18; TEMP 36.9; O2SAT 98
[2019-03-22 02:06] VITALS: BP 133/66; PULSE 100; RESP 18; TEMP 36.9; O2SAT 96
[2019-03-22] MEDS: oxyCODONE 5 MG Tablet PO ×2 (03:47→11:16)
[2019-03-22 05:25] LABS: Hematocrit 32.6 % (37-47); Hemoglobin 10.8 g/dl (12.0-15.0); Mean Corp Hgb Conc 33.1 g/gl (32-36); Mean Corpuscular Hgb 30.3 pg (27.0-32.0); Mean Corpuscular Volume 91.3 fL (81-99); Mean Platelet Vol. 9.3 fl (6.2-12.0); Platelet Count 205 K/mm3 (150-450); RBC Distribution Width CV 12.5 % (11.6-14.6); RBC Distribution Width SD 40.7 fl (35.1-43.9); Red Blood Count 3.57 M/mm3 (4.2-5.4); White Blood Count 7.8 K/mm3 (4.4-11.0)
[2019-03-22 05:30] LABS: Scan Indicated on CBC? Y/N NO
[2019-03-22] MEDS: Acetaminophen 500 MG Tablet 1000 MG PO (05:33)
[2019-03-22] MEDS: Ketorolac 15 MG/ML Vial IV (07:14)
--- NOTE | 2019-03-22 08:59 | CASEMGMT ---
Addendum entered by Torin Jang 03/22/19 11:47: Call placed to Doretha @ [facility] and she was made aware pt is discharging today. Original Note: GILES CRYSTAL NOTE: Script obtained for [facility] and faxed to [facility]. Pt aware [employer] not in Network with [employer] and is agreeable to [facility]. Pt states Doretha from [facility] has contacted her and they are planning to see her Tuesday. Kassie WAGNER RN CM
--- NOTE | 2019-03-22 10:27 | CASEMGMT ---
[facility] called to nurse's station, they informed SW pt does not want the walker as she does not want to wait in the hospital for it, she is going to get the walker on her own. SOO inquired if the walker could be delivered to pt's home instead--[facility] states that yes, it could be. SOO put [facility] on hold, spoke w/pt. She does not want to wait for the walker to be delivered from [place] as it will take too long, but she is agreeable to have the walker delivered from [facility] to her home. She asked to have [facility] call her back. SOO spoke to the rep from [employer] and asked her to call pt back and set up delivery for home. OLIVIER Dupont
[2019-03-22 10:34] VITALS: BP 148/78; PULSE 98; RESP 18; TEMP 36.9; O2SAT 100
[2019-03-22] MEDS: Pantoprazole Sodium 20 MG Tablet PO (10:42)
[2019-03-22] MEDS: Senna/Docusate Sodium 1 Tablet 2 TABLET PO (10:42)
[2019-03-22] MEDS: hydroCHLOROthiazide 25 MG Tablet PO (10:42)
[2019-03-22] MEDS: APIXABAN 2.5 MG TABLET PO (10:43)
--- NOTE | 2019-03-22 12:35 | CASEMGMT ---
GILES CRYSTAL NOTE: Reviewed LAWSON form with patient. Denies having any questions. LAWSON form signed by pt, copy made and placed on chart, and original given to pt. Kassie WAGNER RN CM
== END 2019-03-22 11:22 | disposition home health service (06) | DRG 462 ==
LOC: MS3 03-21 13:33 → ACINP 03-21 15:42 → MS3 03-21 15:42
PROVIDERS: Admitting Provider Orthopaedic Surgery; Family Provider Family Medicine; PCP Family Medicine; Referring Provider Orthopaedic Surgery; Visit Provider Orthopaedic Surgery
PROC: 0SRD0J9 Replacement of Left Knee Joint with Synthetic Substitute, Cemented, Open Approach (ICD-10-PCS; CPT 27447; principal; 2019-03-20 10:10)
DX: M17.0 Bilateral primary osteoarthritis of knee (principal)
CPT/HCPCS: 36415; 73560; 80048; 85027; 87081; 97110; 97116; 97163; 97166; 97530; 97535; C1776; J7120; J2405; J3490

== ENCOUNTER 2019-04-25 18:30 | Outpatient (RCR) | payer MEDICARE, MEDICAID, SELFPAY ==
[2019-04-02 14:36] VITALS: BMI 33.5
--- NOTE | 2019-04-10 15:35 | HP.PTEVAL ---
Patient's Visit Information VLAD MACKAY is a 64 year old F referred to Physical Therapy by Bari Queen DO with a diagnosis of Bilateral TKR. Date of Evaluation: 04/10/19 Physical Therapist: Madhavi Feliciano DPT - Visit Plan Frequency: 2x /Week Duration: 4 Weeks Plan: Bilateral TKR 03-20-19- Focus on LE ROM and strength/stabilization- Left has less ROM than Right- Functional mobility - Subjective Findings: Bilateral TKR by Dr. Soni 03/20/19 went home 2 days later. Single story home with a few stairs to enter- no problems getting in/out- lives alone. Did have home therapy for 2 weeks- then sent her to outpatient. Measured on Tuesday right: 104 and left: 100 degrees. Worst: 02/19 Agg:overdoing yesterday due to working in the yard and overdid it. Typically left is more stiff in the AM. Does exercises before she gets out of bed. Sleep: not disturbed-side sleeper. Best: 0/10 Eases: ice, rest, elevation- oxycodone. Fully I prior to surgery. 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 Describes the pain as dull and achy- nagging toothache. Did give her exercises that she does daily. Feels that she is 70% back to where she wants to be. Has not had any images. PMHx/Meds: no change since sugery - Objective Posture: FH, RS- can correct with VC's. Gait: slightly antalgic- carries SPC. Stairs: asc/desc 8 recip however with descent she is challenged with eccetrics and bending of the Left LE. HR/TR: able but more challenged with TR. SLS: 5 sec then LOB. Palpation: tender to medial and lateral joint line. Observation: incision healing well- no s/s of infection. ROM: Right: 0-118 and Left: 0-104. Strength: Ankle: 5/5, Knee: 4+/5 with slight lag with SLR, Hip: 4/5 Core: fair. Flex: HS: moderate, Gastroc: moderate - Goals Goal 1:: Patient will be I with HEP and progression Goal Time Frame: 4-6 Weeks Goal 2:: Patient will asc/desc 8 recip with 1 HR Goal Time Frame: 4-6 Weeks Goal 3:: Patient will demo 0-115 degrees bilaterally Goal Time Frame: 4-6 Weeks Goal 4:: Patient will report return to all normalized function with 0/10 Goal Time Frame: 4-6 Weeks - Rehabilitation Potential Physical Therapy Diagnosis: Patient presents with hypomobility s/p bilateral TKR 03/20/19. She has decreased ROM, strength and muscular endurance leading to abnormal gait pattern and decreased ability to perform ADL's. Rehabilitation Potential: Good - Anticipated Interventions Patient/Client Instruction: Educate patient on: Benefits of Fitness Program Therapeutic Exercise to Include: Strength training, Endurance training, Balance training, Coordination, Agility training, Body mechanics, Postural training, Flexibilty training, Gait and locomotor training, Passive ROM, Active ROM, Dynamic Lumbar Stabilization For the Purpose of:: To improve muscle performance and motor function TENS: Yes Cryotherapy (ice pack, ice massage): Yes Thermo therapy (hot pack): Yes Ultrasound (thermal/non thermal): No Thank you for the opportunity to evaluate your patient. For Medicare and Medicare HMO plans, please review the plan of care and approve it. It will need to be FAXED BACK to us at [phone] for Medicare purposes. For Medicare only, by signing this I certify the plan of care. Please let me know if there are questions or concerns regarding this plan of care. Physician Signature: Date:
--- NOTE | 2019-05-01 16:17 | HP.PT.NRP ---
HP - Discharge Summary (1) - Patient Information VLAD MACKAY was seen in my office for initial evaluation on 04/10/19. The following Plan of Care was established for this patient: Initial Frequency: 2x /Week Initial Duration: 4 Weeks - Anticipated Interventions Patient/Client Instruction: Educate patient on: Benefits of Fitness Program Therapeutic Exercise to Include: Strength training, Endurance training, Balance training, Coordination, Agility training, Body mechanics, Postural training, Flexibilty training, Gait and locomotor training, Passive ROM, Active ROM, Dynamic Lumbar Stabilization For the Purpose of:: To improve muscle performance and motor function TENS: Yes Cryotherapy (ice pack, ice massage): Yes Thermo therapy (hot pack): Yes Ultrasound (thermal/non thermal): No This patient was last seen in our office . Pertinent comments regarding their Physical therapy will appear below: Patient reports that she is happy with progress and MD says she is okay to be d/c. At this point I will be discontinuing this patient from physical therapy. I would be happy to see this patient again in the future if found appropriate by the physician. Thank you! VALDEZ ColungaT
== END 2019-04-25 19:00 | disposition home or self-care (01) ==
LOC: PT 18:30
PROVIDERS: Family Provider Family Medicine; PCP Family Medicine; Referring Provider Orthopaedic Surgery; Visit Provider Orthopaedic Surgery
DX: Z47.1 Aftercare following joint replacement surgery (principal); Z96.653 Presence of artificial knee joint, bilateral
CPT/HCPCS: 97110; 97162

== ENCOUNTER → 2019-08-03 16:24 | Outpatient (CLI) | payer MEDICARE, SELFPAY ==
[2019-06-13 14:34] VITALS: BMI 33.5
--- NOTE | 2019-08-03 16:31 | RAD_ITS ---
STUDY: X-RAY - RIGHT SHOULDER REASON FOR EXAM: Female, 64 years old. Right shoulder pain since March TECHNIQUE: 4 view(s) of the shoulder. COMPARISON: None. FINDINGS: There is mild degenerative arthrosis of the glenohumeral articulation. Normal acromioclavicular joint. Normal acromion. There are mild degenerative changes of the right humeral head. The soft tissue structures are unremarkable. There is no demonstrated fracture. Normal visualized pulmonary apex. RAD/Shoulder min 2 Views IMPRESSION: Mild degenerative changes of the glenohumeral articulation and right humeral head. Electronically Signed: Gonzalez Arreguin MD at 21:05 EST , Service support ,
== END ==
PROVIDERS: Family Provider Family Medicine; PCP Family Medicine; Referring Provider Family Medicine; Visit Provider Family Medicine
DX: M25.519 Pain in unspecified shoulder (principal)
CPT/HCPCS: 73030

== ENCOUNTER → 2022-06-11 | Outpatient (CLI) | payer MEDICARE, MEDICAID, SELFPAY ==
--- NOTE | 2022-06-11 14:40 | RAD_ITS ---
STUDY: X-RAY - LEFT WRIST REASON FOR EXAM: Female, 67 years old. Ganglion. TECHNIQUE: 3 view(s) of the wrist were obtained. COMPARISON: MRI 09/30/2015 FINDINGS: No visible fracture. No osseous destruction. Mild ulnar negative variant. Otherwise alignment is anatomic. Moderate degenerative changes first CMC joint. Otherwise mild degenerative changes. Soft tissues unremarkable. RAD/Wrist min 3 Views IMPRESSION: No acute osseous abnormality. Electronically Signed: Gonzalez Hsieh MD at 6:23 EDT ,
== END | disposition home or self-care (01) ==
PROVIDERS: PCP Family Medicine; Referring Provider Nurse Practitioner Family; Visit Provider Nurse Practitioner Family
DX: M67.432 Ganglion, left wrist (principal); Z87.891 Personal history of nicotine dependence
CPT/HCPCS: 73110

== ENCOUNTER 2022-10-06 09:08 | Day surgery (SDC) | payer MEDICARE, MEDICAID, SELFPAY ==
--- NOTE | 2022-10-05 20:41 | HP.PCM_ITS ---
History and Physical Date of Admission: 10/06/22 HISTORY OF PRESENT ILLNESS 67 year old woman comes in today for evaluation of scattered painful soft tissue masses on her lower back, right upper chest wall, and bilateral upper extremities that have increased in size over the last several months and have become painful when bumped.? She is very busy during the day and admits that she bumps her upper extremities frequently throughout the day.? She also noticed a cystic mass on the dorsum left hand/wrist at the base of her thumb that has increased in size over the last several months and has become intermittently painful when bumped. ? She had a left wrist x-ray done on 06/11/22. It showed no visible fracture.? No osseous destruction. Mild ulnar negative variant.? Otherwise alignment is anatomic. Moderate degenerative changes first CMC joint.? Otherwise mild degenerative changes. Soft tissues unremarkable. She has a history of having lipomas removed from her left forearm a few years ago.? She comes in today for further evaluation and surgical options for treatment. PAST MEDICAL HISTORY Actinic keratosis Actinic skin damage Angiolipoma Arthritis Compound nevus Ganglion cyst Hypertension Lipoma Squamous cell carcinoma in situ PAST SURGICAL HISTORY H/O excision of ganglion cyst History of excision of mass History of excision of mass History of squamous cell carcinoma excision History of tubal ligation Status post excision of lipoma ALLERGIES No Known MEDICATIONS hydrochlorothiazide acetaminophen omeprazole magnesium cholecalciferol (vitamin D3) naproxen sodium (Aleve) FAMILY HISTORY Mother - Anxiety, Asthma, Bleeding disorder, Depression, Hypertension, COPD (chronic obstructive pulmonary disease) Brother - Bleeding disorder, Depression, Hypertension, COPD (chronic obstructive pulmonary disease) SOCIAL HISTORY Smoking Status:? Former smoker alcohol intake:? former substance use type:? does not use REVIEW OF SYSTEMS General - Denies fever, fatigue and weight loss. Eyes - Denies eye pain.? denies cataracts.? denies glaucoma. ENT - Denies nasal congestion and sore throat. CV - Denies chest pain or discomfort, fatigue, lightheadedness and shortness of breath with exertion.? has hypertension. Resp - Denies cough and shortness of breath.? patient is a former smoker. GI - Complains of constipation.? Denies nausea, vomiting and diarrhea. - Denies blood in urine and urinary frequency.? had tubal ligation. MS - Complains of back pain.? Denies muscle cramps, stiffness and muscle weakness.? She has a mucous cyst at dorsal radial aspect IP joint right right thumb.? Derm -has personal history of skin cancer on left anterior leg. ? Has enlarging painful soft tissue masses dorsum left hand/wrist at base of thumb, lower back, right upper chest wall, and bilateral upper extremities. Neuro - Denies headaches. Psych - Denies anxiety and depression. Endo - Denies excessive urination and excessive thirst. Heme - Denies bleeding and abnormal bruising. PHYSICAL EXAMINATION General - well developed, well nourished, in no acute distress.? HEENT - PERRL/EOMI.? Throat is clear.? No suspicious lesions noted. Neck - supple and nontender.? No cervical adenopathy.? No suspicious lesions noted. Lungs - clear bilaterally to auscultation. Chest wall - On the right upper chest wall is a soft tissue mass that measures 2.5 cm.? It is mobile.? Mild tenderness to palpation.? Clinically consistent with a lipoma. No other suspicious lesions noted. Heart - regular rate and rhythm. Abdomen - soft and nondistended. ?No suspicious lesions noted. ? Extremities - no clubbing, cyanosis, edema, or deformity noted with normal full range of motion of all joints.? On the dorsum left hand/wrist at base of left thumb is a soft tissue mass that measures 1 cm.? Overlying skin is intact and not ulcerated.? Appears mobile.? No evidence of infection.? No problems with range of motion.? No sensory deficits.? Mild tenderness to palpation. ?No axillary adenopathy.? Fingers are warm with good capillary refill.? Radial pulses are palpable. She also has a soft tissue mass distal volar aspect left arm that is mobile.? Measures 4 cm.? Slight tenderness to palpation. ? There is a soft tissue mass distal medial aspect left arm that is mobile.? Measures 5 cm.? Slight tenderness to palpation.? There is a soft tissue mass distal lateral aspect left arm that is mobile.? Measures 2.5 cm.? Slight tenderness to palpation. There is a soft tissue mass volar radial aspect left mid forearm that is mobile.? Measures 1.5 cm.? Slight tenderness to palpation. There is a soft tissue mass volar aspect left mid forearm that is mobile.? Measures 3 cm.? Slight tenderness to palpation. There is a soft tissue mass distal dorsal radial aspect left forearm by the wrist that is mobile.? Measures 2 cm.? Slight tenderness to palpation. There are multiple painful soft tissue masses right upper extremity that will be excised after the masses on the left upper extremity and lower back and will be re-measured at that time. Back - There is a soft tissue mass right lower back that is mobile.? Measures 8 cm.? Slight tenderness to palpation. There is a soft tissue mass left lower back that is mobile.? Measures 5.5 cm.? Slight tenderness to palpation. Neurologic - cranial nerves II-XII grossly intact.? Psych - alert and cooperative; normal mood and affect; normal attention span and concentration.? ASSESSMENT 1.? 1 cm painful soft tissue mass dorsum left hand/wrist at base of thumb, probable ganglion cyst. 2.? 4 cm painful soft tissue mass distal volar aspect left arm. 3.? 5 cm painful soft tissue mass distal medial aspect left arm. 4.? 2.5 cm painful soft tissue mass distal lateral aspect left arm.? 5.? 1.5 cm painful soft tissue mass volar radial aspect left mid forearm. 6.? 3 cm painful soft tissue mass volar aspect left mid forearm. 7.? 2 cm painful soft tissue mass distal dorsal radial aspect left forearm by the wrist. 8.? 2.5 cm painful soft tissue mass right upper chest wall. 9.? 8 cm painful soft tissue mass right lower back. 10.? 5.5 cm painful soft tissue mass left lower back. 11.? Scattered painful soft tissue masses right upper extremity. 12.? Personal history of skin cancer. 13.? Former smoker. PLAN For the ganglion cyst dorsum left hand/wrist, an xray was done on 06/11/22. It showed no visible fracture.? No osseous destruction. Mild ulnar negative variant.? Otherwise alignment is anatomic. Moderate degenerative changes first CMC joint.? Otherwise mild degenerative changes. Soft tissues unremarkable. Recommend excision of the ganglion cyst and send it to Pathology for analysis to rule out carcinoma.? Postoperatively a wrist splint will be placed for a couple of weeks.? Her fingers will be free for movement. Depending on the complexity of the ganglion cyst surgery, (dissection goes down to the wrist joint), may also remove some of the painful soft tissue masses on her left upper extremity. Will send the tissue to Pathology for analysis to rule out carcinoma.? If I don't remove them, then they will be done at a later date. The painful soft tissue masses on her lower back and right upper extremity will also be done at a later date. Surgery will be done under general anesthesia on an outpatient basis.? Trav wraps for compression will be used. The patient was informed of the risks and complications of the procedure including alternatives to surgery. These were discussed with the patient personally.? The patient voices understanding and wishes to proceed. Some of the risks and complications were included in a form from the [employer]. Some of the risks and complications that were discussed included but were not inclusive of failure to diagnose including symptom relief, pain, infection, numbness, stiffness, loss of digit, RSD (CRPS), need for further surgery, contracture, and wound healing problems.
[2022-10-06] VITALS (7 sets, daily range): BP systolic 116–135; BP diastolic 57–75; PULSE 53–73; RESP 16–17; TEMP 36.1–36.7; O2SAT 94–99; BMI 33.5
--- NOTE | 2022-10-06 | GANG_PTH ---
PATIENT: VLAD MACKAY [place] [facility] [place][id number] AGE/SX: 67/F ROOM: RE10/06/[address]: Dr. Craig Robles MD : 1955 BED: DIS: 10/06/2022 SPEC #: [id number] RECD: 10/06/22 17:02 STATUS: PAULA RE #: [id number] JEAN MARIE: 10/06/22 00:[address]: Craig Robles DEPT: SURGICAL PATHOLOGY RECD BY: Luis Carlos De La Cruz ENTERED: 10/07/22 09:32 SP TYPE: GANGLION OTHR DR: Dr. Griffin Romero MD Tissues: A - GANGLION CYST B - Forearm, NOS C - Forearm, NOS D - Forearm, NOS Procedures: Surgery Specimen Level III HEADER OPERATION: Excision ganglion cyst dorsal left wrist at base of thumb PRE-OP DIAGNOSIS: 1 cm painful soft tissue mass dorsum left hand/wrist at base of thumb, probable ganglion cyst; 1.5 cm painful soft tissue mass volar radial aspect left mid forearm; 3 cm painful soft tissue mass volar aspect left mid forearm; 2 cm painful soft tissue mass distal dorsal radial aspect left forearm by wrist TISSUE SUBMITTED: A - 1 cm painful soft tissue mass dorsum left hand/wrist at base of thumb, probable ganglion cyst, B - 2 cm painful soft tissue mass distal dorsal radial aspect left forearm by wrist, C - 3 cm painful soft tissue mass volar aspect left mid forearm, D - 1.5 cm painful soft tissue mass volar radial aspect left mid forearm MICROSCOPIC DIAGNOSIS A. Soft tissue mass, dorsum left hand, excision: Consistent with ganglion cyst. Fragments of mature fibrofatty tissue. B. Soft tissue mass, distal dorsal left forearm, excision: Mature adipose tissue consistent with lipoma. C. Soft tissue mass, volar aspect left forearm, excision: Mature adipose tissue consistent with lipoma. D. Soft tissue mass, volar aspect left mid forearm, excision: Mature adipose tissue consistent with lipoma. AM:beatrice 10/08/2022 MICROSCOPIC DESCRIPTION Slides are reviewed. GROSS DESCRIPTION A - Received in fixative is one container labeled with the patient's name and designated soft tissue mass left wrist. The specimen consists of multiple irregular fragments of [place]-yellow soft tissue that in aggregate measure 2 x 1 x 0.2 cm. The specimen is totally submitted in one cassette. B - Received in fixative is one container labeled with the patient's name and designated soft tissue mass volar radial aspect left forearm. The specimen consists of multiple irregular fragments of light-yellow soft tissue measuring in aggregate 3 x 2.5 x 0.2 cm. The specimen is totally submitted in one cassette. C - Received in fixative is one container labeled with the patient's name and designated soft tissue mass volar left mid forearm. The specimen consists of multiple irregular fragments of yellow fatty tissue that in aggregate measure 7 x 6 x 0.5 cm. Bolt Sorter portions are submitted in one cassette. D - Received in fixative is one container labeled with the patient's name and designated soft tissue mass volar radial aspect left mid forearm. The specimen consists of multiple irregular fragments of light-yellow soft tissue measuring in aggregate 5 x 3 x 1 cm. The specimen is totally submitted in one cassette. / AM:beatrice 10/07/2022 TC:1 CPT: 21516 x4
[2022-10-06] MEDS: Lactated Ringers 1,000 ML 15 ML IV (09:25)
[2022-10-06] MEDS: Cefazolin 2 GM in 0.9% Normal Saline 100 ML IV (11:45)
[2022-10-06] MEDS: Lidocaine 1% /Epi 1:100 (20ml) 20 ML Vial (12:11)
--- NOTE | 2022-10-06 13:27 | OP.PCM_ITS ---
Problems Associated Problem List Diagnoses (1) Ganglion cyst of dorsum of left wrist: (2) Mass of left forearm: (3) Personal history of skin cancer: (4) Former smoker: Report of Operation Date of Procedure: 10/06/22 Pre-Operative Diagnosis: 1. 1 cm painful soft tissue mass dorsum left hand/wrist at base of thumb, probable ganglion cyst. 2. 1.5 cm painful soft tissue mass volar radial aspect left mid forearm. 3. 3 cm painful soft tissue mass volar aspect left mid forearm. 4. 2 cm painful soft tissue mass distal dorsal radial aspect left forearm by the wrist. 5. Personal history of skin cancer. 6. Former smoker. Post-Operative Diagnosis: Same. Surgery/Procedure Performed:: 1. Excision 1 cm painful ganglion cyst dorsum left wrist at base of thumb. 2. Excision 1.5 cm painful soft tissue mass volar radial aspect left mid forearm with 1.5 cm layered closure. 3. Excision 3 cm painful soft tissue mass volar aspect left mid forearm with 2.5 cm layered closure. 4. Excision 2 cm painful soft tissue mass distal dorsal radial aspect left forearm by the wrist with 2 cm layered closure. Description of Surgical Findings:: 67 year old woman comes in today for evaluation of scattered painful soft tissue masses on her lower back, right upper chest wall, and bilateral upper extremities that have increased in size over the last several months and have become painful when bumped.? She is very busy during the day and admits that she bumps her upper extremities frequently throughout the day.? She also noticed a cystic mass on the dorsum left hand/wrist at the base of her thumb that has increased in size over the last several months and has become intermittently painful when bumped. ? She had a left wrist x-ray done on 06/11/22.? It showed no visible fracture.? No osseous destruction. Mild ulnar negative variant.? Otherwise alignment is anatomic.? Moderate degenerative changes first CMC joint.? Otherwise mild degenerative changes.? Soft tissues unremarkable. ??She has a ? history of having lipomas removed from her left forearm a few years ago.? She comes in today for further evaluation and surgical options for treatment. Patient was informed of the risks and complications of the procedure including alternatives to surgery. These were discussed with the patient personally. Patient voices understanding and wishes to proceed. Some of the risks and complications were included in a form from the [place]. Potential risks and complications included but not inclusive of bleeding, infection, hematoma, bruising, swelling, loss of sensation to skin, wound breakdown, need for wound care, poor scarring, poor aesthetic outcome, intra operative cardiac or neurologic events, DVT, PE, and reaction to anesthesia. Surgeon: Craig Robles MD clothing and textiles teacher: Jovita Sinha RNFA Type of Anesthesia: Local MAC (Xylocaine with epinephrine and IV sedation.) Anesthesiologist: Mina Suarez MD and Alejandra Kennedy CRNA Specimen's removed: 1. Painful ganglion cyst dorsum left wrist at base of thumb to Pathology. 2. Painful soft tissue mass volar radial aspect left mid forearm to Pathology. 3. Painful soft tissue mass volar aspect left mid forearm to Pathology. 4. Painful soft tissue mass distal dorsal radial aspect left forearm by the wrist to Pathology. Drains: None. Estimated Blood Loss (mL): 20. Description of Procedure: Patient was taken to OR in supine position and was given IV sedation. The tourniquet was placed. The left arm was prepped and draped in the usual fashion. SCD's were placed for DVT prophylaxis. Perioperative antibiotics were given intravenously. The soft tissue masses left forearm (volar radial aspect left mid forearm, volar aspect left mid forearm, distal dorsal radial aspect left forearm by the wrist) and the ganglion cyst dorsum left wrist at base of thumb were infiltrated with xylocaine and epinephrine. After waiting 5 minutes for the anesthetic to take effect, I made a zig zag incision over the soft tissue mass dorsum left wrist at base of thumb down into the subcutaneous tissue between the compartment 2 dorsal wrist extensors and the compartment 1 extensors to the thumb. A slight bulge was seen and an incision was made. A lot of fatty tissue was noted in this area and was excised. Down toward the wrist joint, a couple of small ganglion cysts were seen. Their stalks were dissected down to the radiocarpal joint. A small cuff of capsule was also excised to minimize recurrence. Close to the dorsal wrist extensors was a branch of the superficial sensory branch of the radial nerve. It was preserved. The cysts were then sent to Pathology for analysis to rule out carcinoma. The wound was irrigated with saline. Minimal oozing was noted and controlled with electrocautery. I then made longitudinal incisions on the left forearm where the soft tissue masses were located (volar radial aspect left mid forearm, volar aspect left mid forearm, distal dorsal radial aspect left forearm by the wrist). The dissection was carried into the subcutaneous tissue. The soft tissue masses were easily dissected free and sent to Pathology for analysis to rule out carcinoma. They extended down to the muscular fascia but did not infiltrate the fascia. Hemostasis was obtained with electrocautery. The wounds were irrigated with saline. For closure I used 4-0 Vicryl interrupted sutures for the deep dermis and subcutaneous tissue. The skin was approximated with 5-0 Prolene simple interrupted sutures. Antibiotic ointment was applied to all four incisions followed by Xeroform gauze and 2x2 gauze followed by Kerlix gauze. A volar wrist splint was applied followed by compression earl wrap. The tourniquet was placed but not inflated as there was minimal oozing during the surgery to warrant it and good visibility was noted during the procedure. Patient tolerated the procedure well and was sent to PACU in satisfactory condition. Patient will be sent home on antibiotics and pain medication. She will keep her left arm elevated during the initial postoperative period. Patient will followup in a week for a wound check and for discussion of the pathology report. She will wear the wrist splint for 2 weeks. She will be encouraged to move her fingers to minimize stiffness. The sutures will be removed in two weeks. Grafts/Implants Used: None. Procedure Start Time: 12:12 Procedure Stop Time: 13:34 Complications None. Admit VTE Documentation VTE Present on Admission: No VTE Mechan Device Prophylaxis: SCD's VTE Pharm Prophylaxis ordered?: No Addendum Addendum: Surgery Charges CPT - 91687 ICD-10 - M67.432, Z85.828, Z87.891 80736 R22.32, Z85.828, Z87.891 41125 R22.32, Z85.828, Z87.891 69928 R22.32, Z85.828, Z87.891
[2022-10-06] MEDS: BACITRACIN/POLYMYXIN B 15 GM Tube 1 APPLIC (13:29)
--- NOTE | 2022-10-06 13:39 | DCINST_ITS ---
Discharge Instructions Diet Discharge Diet: No restrictions Activity Discharge Activity: May Not Drive (may not drive while taking pain medications.), May Shower (wear plastic bag over left arm when showering.) and - (elevate left hand. no heavy lifting left hand.) May shower in (days): 1 (wear plastic bag over left arm when showering.) May resume sexual activity in: No Restrictions Weight Bearing Status: Weight bearing as tolerated Lifting Restrictions: 20 lbs left hand. Keep extremity elevated above heart level: Left Arm Dressing / Incision Call your doctor if your incision/area has: Continuous Slow Oozing, Sudden Increased Bleeding, Increased Pain/ Swelling, Increased Redness, Foul Smelling Discharge and Swelling at the incision site Call your doctor if you observe: Fever of 101 or Higher, Coldness, Increased Pain, Shortness of breath, Chest pain, Calf discomfort and Uncontrolled pain Change Dressing in: leave in place till F/U (will change the operative dressing in the office.) Cleanse incision/area with: Keep Dressing Clean & Dry (wear plastic bag over left hand when showering.) Follow Up Care Please Follow Up With: Craig Robles MD When: one week. call [phone] for appt. Test Results: Test results from this visit will be discussed in further detail at your follow- up appointment, if applicable. Discharge Plan Admission Primary Reason for Your Visit: excision ganglion cyst left wrist and soft tissue masses left forearm Attending Provider: Craig Robles Primary Care Provider: Griffin Romero Discharge Orders/Prescriptions Prescriptions: New cefadroxil 500 mg capsule 500 mg PO BID Qty: 8 0RF L.acidoph,saliva-B.bif-S.therm [Acidophilus Probiotic Blend] 175 mg capsule 1 cap PO DAILY Qty: 10 0RF oxycodone-acetaminophen [Percocet] 5-325 mg tablet 1 tab PO Q6H PRN (Reason: pain (scale score 7-10)) 7 Days Qty: 28 0RF Rx Instructions: 28 tabs (twenty-eight) Continued naproxen sodium [Aleve] 220 mg capsule 220 mg PO DAILY cholecalciferol (vitamin D3) 100 mcg (4,000 unit) capsule 100 mcg PO DAILY hydrochlorothiazide 25 MG tablet 25 mg PO DAILY Label Comments: BP acetaminophen 500 MG tablet 500 - 1,000 mg PO Q6H PRN PRN (Reason: Pain) omeprazole magnesium 20 MG capsule,delayed release(DR/EC) 20 mg PO DAILY Referrals / Follow Up: Griffin Romero MD [Primary Care Provider] - Disposition Disposition (needs filled in before D/C Order can be placed): Home, Self Care
[2022-10-06] MEDS: Acetaminophen 325 MG Tablet PO (14:27)
[2022-10-06] MEDS: oxyCODONE 5 MG Tablet PO (14:27)
== END 2022-10-06 16:20 | disposition home or self-care (01) ==
LOC: SDC 09:11 → AC 09:13
PROVIDERS: PCP Family Medicine; Referring Provider Surgery; Visit Provider Surgery
PROC: (CPT 25111; principal; 2022-10-06 10:45)
DX: M67.432 Ganglion, left wrist (principal); D17.22 Benign lipomatous neoplasm of skin and subcutaneous tissue of left arm; R07.89 Other chest pain; I10 Essential (primary) hypertension; M79.632 Pain in left forearm; Z87.891 Personal history of nicotine dependence
CPT/HCPCS: 25111; 25071; 25075 ×2; 01810; 88304; 88305; J7120; J2405

== ENCOUNTER → 2023-04-08 | Outpatient (CLI) | payer MEDICARE, MEDICAID, SELFPAY ==
[2023-04-08 17:46] LABS: Anion Gap 5 (5-15); BUN 21 mg/dL (7-18); BUN/Creat Ratio 28.9 RATIO (10-20); Calcium,Total 9.9 mg/dL (8.5-10.1); Chloride 101 mmol/L (98-107); Cholesterol 252 mg/dL (200); Creatinine, Serum 0.73 mg/dL (0.55-1.02); EST Glomerular Filtration Rate 85 mL/min (>60); Est Glom Filt Rate - Afr Amer 102 mL/min (>60); Glucose 74 mg/dL (74-106); High Density Lipoprotein 71 mg/dL; Potassium 4.5 mmol/L (3.5-5.1); Sodium Level 137 mmol/L (136-145); Triglycerides 81 mg/dL; Very Low Density Lipoprotein 16 mg/dL (5-40)
== END | disposition home or self-care (01) ==
LOC: MFPLAB 14:35
PROVIDERS: PCP Family Medicine; Visit Provider Family Medicine
DX: Z00.00 Encounter for general adult medical examination without abnormal findings (principal); Z13.6 Encounter for screening for cardiovascular disorders
CPT/HCPCS: 36415; 80048; 80061

== ENCOUNTER 2023-05-04 12:24 | Day surgery (SDC) | payer MEDICARE, MEDICAID, SELFPAY ==
[2023-05-04 12:40] VITALS: BP 114/86; PULSE 69; RESP 18; TEMP 36.5; O2SAT 99; BMI 32.2
[2023-05-04] MEDS: Lactated Ringers 1,000 ML 15 ML IV (12:46)
--- NOTE | 2023-05-04 13:00 | LES_PTH ---
PATIENT: VLAD MACKAY [place] [facility] [id number] AGE/SX: 68/F ROOM: RE05/04/[address]: Dr. Craig Robles MD : 1955 BED: DIS: 05/04/2023 SPEC #: [id number] RECD: 05/04/23 14:08 STATUS: PAULA REQ #: [id number] JEAN MARIE: 05/04/23 13:[address]: Craig Robles DEPT: SURGICAL PATHOLOGY RECD BY: Fabrizio Schmitt ENTERED: 05/05/23 08:27 SP TYPE: Lesion OTHR DR: Dr. Griffin Romero MD Tissues: A - Skin of leg, NOS B - Skin of leg, NOS Procedures: Frozen Section (charge) Surgery Specimen Level IV HEADER OPERATION: Excision lesion anterolateral aspect proximal leg PRE-OP DIAGNOSIS: One cm recurrent erythematous lesion anterolateral aspect proximal right leg POST-OP DIAGNOSIS: Actinic keratosis with atypia anterolateral aspect proximal right leg TISSUE SUBMITTED: A. One cm recurrent erythematous lesion anterolateral aspect proximal right leg, B. Actinic keratosis with atypia anterolateral aspect proximal right leg FROZEN SECTION DIAGNOSIS A. One cm recurrent erythematous lesion anterolateral aspect proximal right leg: -Actinic keratosis with mild atypia -Focal hyperkeratosis -Extensive solar elastosis AM:hair 05/04/23 MICROSCOPIC DIAGNOSIS A. Skin lesion anterolateral aspect proximal right leg, biopsy: Actinic keratosis with mild atypia and hyperkeratosis. Solar elastosis. Negative for malignancy. B. Actinic keratosis with atypia anterolateral aspect proximal right leg, biopsy: Actinic keratosis with mild atypia and mild hyperkeratosis. Solar elastosis. Negative for malignancy. SJ: 05/06/2023 MICROSCOPIC DESCRIPTION Slides are reviewed. GROSS DESCRIPTION A. Received is one container labeled with the patient name and designated lesion right leg. The specimen consists of a piece of [place] skin measuring 1.4 x 1.2 x 0.5 cm. The specimen is inked as follows: 12 o'clock - black, 3 o'clock - green, 9 o'clock - red and dep deep - yellow.. The specimen is serially sectioned and totally submitted in one cassette for frozen section diagnosis. /AM:cc [id number] B. Received is one container labeled with the patient name and designated proximal right leg . The specimen consists of a piece of [place] white skin that measures 1 x 0.8 cm and up to 1.0 cm in thickness. The specimen is inked serially sectioned and totally submitted in one cassette. /ANGIE:hair 05/05/23 TC:5 CPT: 98645g0, 09579
[2023-05-04] MEDS: Clindamycin 900 MG/50 ML BAG 75 MG IV (13:35)
[2023-05-04] MEDS: Lidocaine 1% /Epi 1:100 (20ml) 20 ML Vial (14:00)
[2023-05-04] MEDS: Mupirocin Ointment 22gm Tube 1 APPLIC (14:47)
--- NOTE | 2023-05-04 14:58 | OP.PCM_ITS ---
Problems Associated Problem List Diagnoses (1) Actinic keratosis: (2) Neoplasm of skin of lower leg: (3) Personal history of skin cancer: (4) Former smoker: Report of Operation Date of Procedure: 05/04/23 Pre-Operative Diagnosis: 1. 1 cm recurrent erythematous lesion anterolateral aspect proximal right leg. 2. Personal history of skin cancer. 3. Former smoker. Post-Operative Diagnosis: 1. 1 cm recurrent actinic keratosis with atypia an terolateral aspect proximal right leg. 2. Personal history of skin cancer. 3. Former smoker. Surgery/Procedure Performed:: Excision 1 cm recurrent actinic keratosis with atypia anterolateral aspect proximal right leg with bilobed transposition skin flap reconstruction (10.64 cm2). Description of Surgical Findings:: 68 year old woman comes in today for evaluation for TBSE. Her PCP has been burning or freezing lesions off her legs in the past with success. However there is one lesion in particular (anterolateral aspect proximal right arm) that he has burned or froze off 3 times in the past and it continues to recur. He told the patient that the lesion needs to be evaluated for excision because of the possibility of the presence of carcinoma. She has a personal history of skin cancer. Patient was informed of the risks and complications of the procedure including alternatives to surgery. These were discussed with the patient personally. Patient voices understanding and wishes to proceed. Some of the risks and complications were included in a form from the [place] [employer]. Potential risks and complications included but not inclusive of bleeding, infection seroma, hematoma, bruising, swelling, prolonged need for drains, loss of sensation to skin, partial or complete loss of skin flap, wound breakdown, need for wound care, poor scarring, poor aesthetic outcome, intra operative cardiac or neurologic events, DVT, PE, and reaction to anesthesia. Frozen section anterolateral aspect proximal right arm - actinic keratosis with atypia and no carcinoma seen. Surgeon: Craig Robles MD rn social services: Cosme Melendez RNFA rn social services: Austin Mckinnon RNFA Type of Anesthesia: General Anesthesiologist: Roni Stanton MD and Dee Bray CRNA Specimen's removed: Recurrent lesion anterolateral aspect proximal right leg to Pathology as a frozen section. Drains: None. Estimated Blood Loss (mL): 10. Description of Procedure: Patient was taken to OR in supine position and was placed under general anesthesia. The right leg and left flank areas were prepped and draped in the usual fashion. SCD's were placed for DVT prophylaxis. Perioperative antibiotics were given intravenously. Using xylocaine with epinephrine, the recurrent lesion anterolateral aspect right proximal leg was infiltrated. After waiting 5 minutes for the anesthetic to take effect, the recurrent lesion was excised in a circular fashion as a full thickness excision with a couple mm margin in all directions thus making it a 1.4 cm excision. A suture was marked at 12 oclock position for pathology orientation. The lesion was sent to Pathology for analysis as a frozen section to rule out carcinoma. Frozen section showed actinic keratosis with atypia and no carcinoma seen. A margin was already taken with the initial excision, so no further margin needed at this time. With a smaller wound, I went ahead with reconstruction with a local skin flap. A skin graft would not be needed today. I marked out a bilobed flap at a 90 degree angle adjacent to the wound. Incisions were made and the flap was elevated on a subcutaneous pedicle at the level of the underlying muscle. The bilobed flap was easily transposed into the wound defect with minimal tension and minimal distortion. Hemostasis was obtained with electrocautery. The size of the defect and the size of the flap needed to close the defect was 10.64 cm2. I used 3-0 Monocryl interrupted sutures for the deeper Chen's fascia. The deep dermis and subcutaneous tissue was approximated with 4-0 Monocryl simple interrupted sutures. The skin was approximated with 4-0 Prolene simple interrupted sutures. Patient tolerated the procedure well. No vascular compromise noted on the skin flap. No clinical evidence of hematoma. Antibiotic ointment was applied to the suture line followed by Kerlix gauze and an earl wrap. Patient tolerated the procedure well and was sent to PACU in satisfactory condition. Patient will be sent home on antibiotics and pain medication. She will keep her right leg elevated during the initial postoperative period. Patient will followup in a week for a wound check and for discussion of the pathology report. The sutures will be removed in two weeks. Grafts/Implants Used: None. Procedure Start Time: 14:00 Procedure Stop Time: 15:18 Complications None. Admit VTE Documentation VTE Present on Admission: No VTE Mechan Device Prophylaxis: SCD's VTE Pharm Prophylaxis ordered?: No Addendum Addendum: Surgery Charges CPT - 34758 ICD-10 - L57.0, D49.2, Z85.828, Z87.891
--- NOTE | 2023-05-04 15:10 | DCINST_ITS ---
Discharge Instructions Diet Discharge Diet: No restrictions Activity Discharge Activity: May Shower (wear plastic bag over right leg when showering.) and - (may ambulate. minimize standing. elevate right leg when sitting.) May shower in (days): 1 (wear plastic bag over right leg when showering.) May resume sexual activity in: 10-14 days Weight Bearing Status: Weight bearing as tolerated Keep extremity elevated above heart level: Right Leg Dressing / Incision Call your doctor if your incision/area has: Continuous Slow Oozing, Sudden Increased Bleeding, Increased Pain/ Swelling, Increased Redness, Foul Smelling Discharge and Swelling at the incision site Call your doctor if you observe: Fever of 101 or Higher, Coldness, Increased Pain, Swelling in the ankles, Chest pain, Calf discomfort and Uncontrolled pain Change Dressing in: do not change dressing (will change the operative dressing in the office.) Cleanse incision/area with: - (wear plastic bag over right leg when showering.) Follow Up Care Please Follow Up With: Craig Robles MD When: 05/10/23. Call [phone] for appt time. Test Results: Test results from this visit will be discussed in further detail at your follow- up appointment, if applicable. Discharge Plan Admission Primary Reason for Your Visit: excision actinic keratosis with atypia anterolateral aspect proximal rt leg Attending Provider: Craig Robles Primary Care Provider: Griffin Romero Discharge Orders/Prescriptions Prescriptions: New doxycycline hyclate 100 mg capsule 100 mg PO BID Qty: 10 0RF L.acidoph,saliva-B.bif-S.therm [Acidophilus Probiotic Blend] 175 mg capsule 1 cap PO DAILY Qty: 20 0RF oxycodone-acetaminophen [Percocet] 5-325 mg tablet 1 tab PO Q6H PRN (Reason: pain (scale score 7-10)) 5 Days Qty: 20 0RF Rx Instructions: 20 tabs (twenty) Continued cholecalciferol (vitamin D3) 100 mcg (4,000 unit) capsule 100 mcg PO DAILY rosuvastatin [Crestor] 5 mg tablet 5 mg PO DAILY hydrochlorothiazide 25 MG tablet 25 mg PO DAILY Patient Comments: BP acetaminophen 500 MG tablet 500 - 1,000 mg PO Q6H PRN PRN (Reason: Pain) omeprazole magnesium 20 MG capsule,delayed release(DR/EC) 20 mg PO DAILY Held naproxen sodium [Aleve] 220 mg capsule 220 mg PO DAILY Hold Instructions: Resume on 05/06/23. Referrals / Follow Up: Griffin Romero MD [Primary Care Provider] - Disposition Disposition (needs filled in before D/C Order can be placed): Home, Self Care
[2023-05-04 15:26] VITALS: BP 114/86; BP 122/66; PULSE 78; RESP 16; TEMP 36.4; O2SAT 93
[2023-05-04 15:30] VITALS: BP 114/86; BP 118/68; PULSE 81; RESP 16; O2SAT 97
[2023-05-04 15:45] VITALS: BP 114/86; BP 123/67; PULSE 77; RESP 16; O2SAT 93
[2023-05-04 16:00] VITALS: BP 112/70; BP 114/86; PULSE 77; RESP 16; TEMP 36.2; O2SAT 95
[2023-05-04 16:15] VITALS: BP 114/86
== END 2023-05-04 16:39 | disposition home or self-care (01) ==
LOC: SDC 12:25 → AC 12:27
PROVIDERS: PCP Family Medicine; Referring Provider Surgery; Visit Provider Surgery
PROC: (CPT 14021; principal; 2023-05-04 12:45)
DX: L57.0 Actinic keratosis (principal); L85.9 Epidermal thickening, unspecified; I10 Essential (primary) hypertension; E78.00 Pure hypercholesterolemia, unspecified; Z79.899 Other long term (current) drug therapy; Z87.891 Personal history of nicotine dependence
CPT/HCPCS: 14021; 00400; 88305; 88331; J7120; J2405

== ENCOUNTER → 2023-05-20 | Outpatient (CLI) | payer MEDICARE, MEDICAID, SELFPAY | END | disposition home or self-care (01) | LOC: LABSPEC 16:52 | PROVIDERS: PCP Family Medicine; Referring Provider Nurse Practitioner Family; Visit Provider Nurse Practitioner Family | DX: T81.89XA Other complications of procedures, not elsewhere classified, initial encounter (principal); D49.2 Neoplasm of unspecified behavior of bone, soft tissue, and skin; L57.0 Actinic keratosis; Z85.828 Personal history of other malignant neoplasm of skin; X58.XXXA Exposure to other specified factors, initial encounter | CPT/HCPCS: 87070; 87075; 87077; 87205 ==

== ENCOUNTER → 2023-05-23 | Outpatient (CLI) | payer MEDICARE, MEDICAID, SELFPAY ==
--- NOTE | 2023-05-23 10:58 | BI_ITS ---
MAMMOGRAPHY - BILATERAL SCREENING REASON FOR EXAM: Female, 68 years old. Routine annual screening examination. PERTINENT HISTORY: Non-contributory. TECHNIQUE: Digital bilateral breast elena (3D mammographic acquisition) in the CC and MLO projections. 2-D mediolateral oblique (MLO) and craniocaudad (CC) views of both breasts were obtained. CAD: Full Field Digital Mammography with Computer Added Detection was performed. COMPARISON: Comparison is made with prior study dated June 21, 2017. FINDINGS: Breast Composition: The breasts are heterogeneously dense, which may obscure small masses. There are no dominant masses or suspicious calcifications. No other significant abnormalities are identified. There has been no significant change since the prior study. BI/SCRN MAMM (CAD)W/ELENA BILAT IMPRESSION: Stable bilateral screening mammogram. Yearly follow-up mammogram recommended. (A) ASSESSMENT CATEGORY: BIRADS Category 1: Negative. A letter regarding these results will be sent to the patient by the facility within 30 days. Approximately 10% of breast cancers are not detected by mammography. A normal mammogram should not delay biopsy of a clinically suspicious abnormality. [id number] Electronically Signed: Dimas Baxter MD at 12:45 EDT ,
== END | disposition home or self-care (01) ==
LOC: OPBI 10:54
PROVIDERS: PCP Family Medicine; Referring Provider Family Medicine; Visit Provider Family Medicine
DX: Z12.31 Encounter for screening mammogram for malignant neoplasm of breast (principal)
CPT/HCPCS: 77063; 77067

== ENCOUNTER → 2023-05-30 | Outpatient (CLI) | payer MEDICARE, MEDICAID, SELFPAY ==
--- NOTE | 2023-05-30 15:27 | MRI_ITS ---
STUDY: MRI LEFT WRIST WITH AND WITHOUT CONTRAST REASON FOR EXAM: Female, 68 years old. Evaluate for ganglion cyst, dorsum left wrist area marked with BB, history of cyst removal in September 2022, pain. TECHNIQUE: Standardized fat and water weighted pulse sequences were obtained in all 3 orthogonal planes, pre- and post contrast administration. IV 15 mL Clariscan was administered for the contrast portion of the examination. COMPARISON: Left wrist radiographs dated 06/11/2022. FINDINGS: There is a multiseptated ganglion cyst at the lateral margin of the radiocarpal joint, overall measuring 0.8 cm AP, 1.1 cm transverse, and 1.4 cm craniocaudad. Following IV contrast administration, there is thin peripheral and septal enhancement. Normal visualized distal radius and ulna. Normal distal radioulnar articulation (DRUJ). Normal triangular fibrocartilaginous complex (TFCC). Intact carpal bones. There are cystic changes in the scaphoid, lunate, triquetrum, trapezium, capitate, and hamate. Normal visualized interosseous scapholunate ligament. Normal visualized dorsal (extrinsic) ligaments. Normal visualized volar (extrinsic) ligaments. Normal extensor tendons. Normal flexor tendons. Normal carpal tunnel with a normal median nerve. There is degenerative arthrosis of the carpometacarpal articulation of the thumb with mild radial subluxation of the first metacarpus. Normal second through fifth carpometacarpal articulations. There is degenerative arthrosis at the first MCP joint. Intact visualized metacarpal bones. There is no demonstrated soft tissue abnormality. There is no abnormal contrast enhancement. MRI/Upper Ext Joint Only W/WO Cont IMPRESSION: 0.8 x 1.1 x 1.4 cm multiseptated ganglion cyst at the lateral margin of the radiocarpal joint. Cystic changes in the scaphoid, lunate, triquetrum, trapezium, capitate, and hamate. Degenerative arthrosis at the first CMC joint and first MCP joint. Electronically Signed: Kaushik Mora MD at 9:46 EDT ,
[2023-05-30 16:02] LABS: CREATININE FINGERSTICK < 0.9 mg/dL (0.55-1.02); EGFR FINGERSTICK > 60.0000 mL/min (>60)
== END | disposition home or self-care (01) ==
LOC: MRI 15:25
PROVIDERS: PCP Family Medicine; Referring Provider Surgery; Visit Provider Surgery
DX: M67.431 Ganglion, right wrist (principal); R22.32 Localized swelling, mass and lump, left upper limb; M79.645 Pain in left finger(s)
CPT/HCPCS: 73223; A9575

== ENCOUNTER → 2023-09-30 | Outpatient (CLI) | payer MEDICARE, MEDICAID, SELFPAY ==
--- OUTSIDE RECORDS SUMMARY | 2023-09-30 14:28 | XMS RPT_ITS | CCD ---
Author Name Unknown Address [address] [place] [address] Organization [facility] Care Team Providers Care Pharmacy Salesperson Name Role Phone Craig Robles MD Unavailable Medications Completed/Discontinued Medications Medication Drug Class(es) Dates Sig (Normalized) Sig (Original) acetaminophen 325 mg / oxyCODONE hydrochloride 5 mg oral tablet (2 sources) Opioid Agonist Start: 05-27-2014 End: 06-03-2014 take 1-2 tablets by mouth four times daily as needed for pain PERCOCET 5-325 MG TABS one to two tablets by mouth four times daily as needed for pain OXYCODONE-ACETAMIN OPHEN [id number] Jammie Bueno LPN ascorbic acid (1 source) take 1 tablet by mouth once daily VITAMIN C TABS One tablet by mouth daily ASCORBIC ACID TABS [id number] Rossana Moe B COMPLEX-C (2 sources) take 1 tablet by mouth once daily SUPER B COMPLEX TABS One tablet by mouth daily B COMPLEX-C [id number] Rossana Moe Problems Active Problems Problem Classification Problem Date Documented Da te Episodic/Chronic Substance-related disorders (1 source) Tobacco dependence syndrome; Translations: [Nicotine dependence, unspecified, uncomplicated] Onset: 04-16-2014 04-17-2014 Chronic Past or Other Problems Problem Classification Problem Date Documented Da te Episodic/Chronic Neoplasms of unspecified nature or uncertain behavior (6 sources) Neoplasm of lip; Translations: [Neoplasm of soft tissue] Onset: 04-16-2014 Resolved: 04-17-2017 07-29-2017 Episodic Other aftercare (1 source) Encounter for other specified surgical aftercare; Translations: [Encounter for other specified surgical aftercare] Onset: 05-27-2014 05-30-2014 Episodic Other and unspecified benign neoplasm (10 sources) Benign neoplasm of skin of upper limb and shoulder; Translations: [Lipoma of other skin and subcutaneous tissue] Onset: 08-12-2011 06-06-2014 Episodic Other connective tissue disease (3 sources) Ganglion of joint; Translations: [Ganglion of wrist] Onset: 08-12-2011 04-17-2014 Episodic Other nervous system disorders (2 sources) Dysesthesia; Translations: [Skin sensation disturbance] Onset: 04-16-2014 09-09-2015 Episodic Other non-epithelial cancer of skin (1 source) Carcinoma in 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, including hip; Translations: [Carcinoma in 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, including hip] Onset: 01-17-2017 01-24-2017 Episodic Other skin disorders (20 sources) Localized swelling, mass and lump, right upper limb; Translations: [Localized swelling, mass and lump, unspecified] Onset: 08-12-2011 Resolved: 09-09-2015 08-13-2015 Episodic Screening or history of mental health and substance abuse (1 source) Ex-smoker; Translations: [Personal history of nicotine dependence] Onset: 01-17-2017 02-10-2017 Episodic Results Test Name Value Interpretation Reference Range Facil ity Vital Signs Date Time Vital Sign Value Performing Clinician Faci lity 05-30-2017 15:23-0400 BMI (Body Mass Index) 32.13 kg/m2 [facility] Work Phone: 05-30-2017 15:23-0400 Body Temperature 97.3 [degF] Craig Robles MD [facility] Work Phone: 05-30-2017 15:23-0400 BP Diastolic 74 mm[Hg] Craig Robles MD [facility] Work Phone: 05-30-2017 15:23-0400 BP Systolic 119 mm[Hg] [facility] Work Phone: 05-30-2017 15:23-0400 BSA (Body Surface Area) 1.86 m2 [facility] Work Phone: 05-30-2017 15:23-0400 Height 160.02 cm Craig Robles MD [facility] Work Phone: 05-30-2017 15:23-0400 Pulse (Heart Rate) 69 /min Craig Robles MD [facility] Work Phone: 05-30-2017 15:23-0400 Respiratory Rate 18 /min Craig Robles MD [facility] Work Phone: 05-30-2017 15:23-0400 Weight 82.28 kg Craig Robles MD [facility] Work Phone: Procedures Date Procedure Procedure Detail Performing Clinician Start: 03-14-2017 End: 07-29-2017 Follow Up Appt 2 weeks Craig Robles MD Start: 02-28-2017 End: 03-14-2017 Follow Up Appt 2 weeks Craig Robles MD Start: 02-14-2017 End: 03-14-2017 Follow Up Appt 2 weeks Craig Robles MD Start: 01-17-2017 End: 02-12-2017 Follow Up Appt Other Craig Robles MD Start: 02-04-2016 End: 02-12-2017 Follow Up Appt 3 months Craig Robles MD Start: 01-28-2016 End: 02-12-2017 Follow up Appt 1 week Craig Robles MD Start: 12-01-2015 End: 01-20-2016 Follow Up Appt Other Craig Robles MD Start: 08-11-2015 End: 10-01-2015 Follow Up Appt Other Craig Robles MD Start: 08-11-2015 End: 04-28-2016 Mri upper extremity oth than jt w/o contr matrl Craig Robles MD Start: 06-03-2014 End: 10-01-2015 Follow Up Appt 3 months Craig Robles MD Start: 04-16-2014 End: 04-17-2014 Follow Up Appt Other Craig Robles MD Plan of Treatment Date Care Activity Detail Author Start: 09-15-2017 End: 09-15-2017 Appointment Appointment [facility] Work Phone: Start: 05-30-2017 End: 07-29-2017 Follow Up Appt 3 months Follow Up Appt 3 months [facility] Work Phone: Start: 03-28-2017 End: 04-17-2017 Follow Up Appt 2 months Follow Up Appt 2 months [facility] Work Phone: Start: 03-14-2017 End: 07-29-2017 Follow Up Appt 2 weeks Follow Up Appt 2 weeks [facility] Work Phone: Start: 02-28-2017 End: 03-14-2017 Follow Up Appt 2 weeks Follow Up Appt 2 weeks [facility] Work Phone: Start: 02-14-2017 End: 03-14-2017 Follow Up Appt 2 weeks Follow Up Appt 2 weeks [facility] Work Phone: Start: 01-17-2017 End: 02-12-2017 Follow Up Appt Other Follow Up Appt Other [facility] Work Phone: Start: 02-04-2016 End: 02-12-2017 Follow Up Appt 3 months Follow Up Appt 3 months [facility] Work Phone: Start: 01-28-2016 End: 02-12-2017 Follow up Appt 1 week Follow up Appt 1 week [facility] Work Phone: Start: 12-01-2015 End: 01-20-2016 Follow Up Appt Other Follow Up Appt Other [facility] Work Phone: Start: 08-11-2015 End: 10-01-2015 Follow Up Appt Other Follow Up Appt Other [facility] Work Phone: Start: 08-11-2015 End: 08-12-2015 Mri upper extremity oth than jt w/o contr matrl MRI Non Joint Upper Extremity [facility] Work Phone: Start: 06-03-2014 End: 10-01-2015 Follow Up Appt 3 months Follow Up Appt 3 months [facility] Work Phone: Start: 04-16-2014 End: 04-17-2014 Follow Up Appt Other Follow Up Appt Other [facility] Work Phone: Patient Education Medications [facility] Work Phone: Additional Source Comments FOR RECORDS PERTAINING TO PATIENTS WHO ARE OR HAVE BEEN ENROLLED IN A CHEMICAL DEPENDENCY/SUBSTANCEABUSE PROGRAM, SOME INFORMATION MAY BE OMITTED. This clinical summary was aggregated from multiple sources. Caution should be exercised in using it in the provision of clinical care. This summary normalizes information from multiple sources, and as a consequence, information in this document may materially change the coding, format and clinical context of patient data. In addition, data may be omitted in some cases. CLINICAL DECISIONS SHOULD BE BASED ON THE PRIMARY CLINICAL RECORDS. [employer] provides no warranty or guarantee of the accuracy or completeness of information in this document.
[2023-09-30 15:53] LABS: ALB/GLOB Ratio 1.2 RATIO (0.9-2.4); AST(SGOT) 13 U/L (15-37); Alanine Aminotransfer ALT/SGPT 20 U/L (13-56); Albumin, Serum 4.1 g/dL (3.2-5.0); Alkaline Phosphatase 73 U/L (45-117); Anion Gap 5 (5-15); BUN 20 mg/dL (7-18); BUN/Creat Ratio 31.8 RATIO (10-20); Calcium,Total 9.9 mg/dL (8.5-10.1); Chloride 102 mmol/L (98-107); Cholesterol 196 mg/dL (200); Creatinine, Serum 0.63 mg/dL (0.55-1.02); EST Glomerular Filtration Rate 100 mL/min (>60); Est Glom Filt Rate - Afr Amer 121 mL/min (>60); Globulin 3.3 g/dL (2.2-4.2); Glucose 80 mg/dL (74-106); High Density Lipoprotein 81 mg/dL; Potassium 3.7 mmol/L (3.5-5.1); Protein, Total 7.4 g/dL (6.4-8.2); Sodium Level 138 mmol/L (136-145); Triglycerides 73 mg/dL; Very Low Density Lipoprotein 15 mg/dL (5-40)
== END | disposition home or self-care (01) ==
LOC: MFPLAB 14:06
PROVIDERS: PCP Family Medicine; Visit Provider Family Medicine
DX: E78.00 Pure hypercholesterolemia, unspecified (principal)
CPT/HCPCS: 36415; 80053; 80061

== ENCOUNTER 2024-03-02 09:26 | Day surgery (SDC) | payer MEDICARE, MEDICAID, SELFPAY ==
[2024-03-02] VITALS (8 sets, daily range): BP systolic 120–155; BP diastolic 65–78; PULSE 67–79; RESP 14–16; TEMP 36.1–36.4; O2SAT 95–100; BMI 33.0
--- NOTE | 2024-03-02 | GANG_PTH ---
PATIENT: VLAD MACKAY LOC: [facility] U#:[id number] AGE/SX: 68/F ROOM: RE03/02/[address]: Dr. Craig Robles MD : 1955 BED: DIS: 03/02/2024 SPEC #: [id number] RECD: 03/02/24 18:10 STATUS: PAULA REQ #: [id number] JEAN MARIE: 03/02/24 00:[address]: Craig Robles DEPT: SURGICAL PATHOLOGY RECD BY: Luis Carlos De La Cruz ENTERED: 03/05/24 09:09 SP TYPE: GANGLION OTHR DR: Dr. Griffin Romero MD Tissues: GANGLION CYST Procedures: Surgery Specimen Level III HEADER OPERATION: Excision recurrent ganglion cyst dorsal radial aspect PRE-OP DIAGNOSIS: 1.0cm painful recurrent multiseptated ganglion cyst at the lateral margin of the radiocarpal joint dorsum left hand/wrist at base of thumb TISSUE SUBMITTED: 1.0cm multiseptated ganglion cyst MICROSCOPIC DIAGNOSIS Ganglion cyst dorsal radial aspect: Fragments of fibroadipose tissue with focal changes consistent with ganglion cyst. / 03/06/2024 MICROSCOPIC DESCRIPTION Slides are reviewed. GROSS DESCRIPTION Received in fixative is one container labeled with the patient's name and designated 1.0cm multiseptated ganglion cyst. The specimen consists of multiple irregular fragments of [place] soft tissue that in aggregate measure 2.5 x 1.5 x 0.3 cm. The specimen is totally submitted in one cassette. / 03/05/2024 TC:5 CPT:17015
[2024-03-02] MEDS: Lactated Ringers 1,000 ML 15 ML IV (09:45)
--- NOTE | 2024-03-02 09:50 | PCM.HP.BLA ---
History and Physical Date of Admission: 03/02/24 HISTORY OF PRESENT ILLNESS 68 year old woman comes in today for evaluation of a recurrent mass on the dorsum left hand/wrist at the base of her thumb that has increased in size over the last several months and has become intermittently painful when bumped. She had surgery on 10/06/22 where she underwent excision 1 cm painful ganglion cyst dorsum left wrist at base of thumb. Healing was uneventful until several months later when she noticed some additional masses forming in the area of the previous surgery. An MRI was done on 05/30/23. It showed a 0.8 x 1.1 x 1.4 cm multiseptated ganglion cyst at the lateral margin of the radiocarpal joint. Cystic changes in the scaphoid, lunate, triquetrum, trapezium, capitate, and hamate.. Degenerative arthrosis at the first CMC joint and first MCP joint.. She comes in today for further evaluation and surgical options for treatment. PAST MEDICAL HISTORY Actinic keratosis Alcohol use Angiolipoma Arthritis Compound nevus Easy bruising Former smoker Ganglion cyst of dorsum of left wrist Gastric reflux Headache Hypertension Leg cramps Lipoma of left forearm Mass of right chest wall Mass of right upper extremity Mass on back Neoplasm of skin of lower leg Pain of left thumb Personal history of skin cancer Squamous cell carcinoma in situ Wears glasses Wears partial dentures PAST SURGICAL HISTORY H/O excision of ganglion cyst History of bilateral knee replacement History of excision of mass History of excision of mass History of squamous cell carcinoma excision History of tubal ligation Status post excision of lipoma Status post surgical removal of ganglion cyst ALLERGIES cefadroxil MEDICATIONS hydrochlorothiazide acetaminophen omeprazole magnesium cholecalciferol (vitamin D3) naproxen sodium (Aleve) rosuvastatin (Crestor) FAMILY HISTORY Mother Anxiety Asthma Bleeding disorder Depression Hypertension COPD (chronic obstructive pulmonary disease) Brother Bleeding disorder Depression Hypertension COPD (chronic obstructive pulmonary disease) SOCIAL HISTORY Smoking Status: Former smoker. alcohol intake: former substance use type: does not use REVIEW OF SYSTEMS General - Denies fever, fatigue and weight loss. Eyes - Denies eye pain.? denies cataracts.? denies glaucoma. ENT - Denies nasal congestion and sore throat. CV - Denies chest pain or discomfort, fatigue, lightheadedness and shortness of breath with exertion.? has hypertension. Resp - Denies cough and shortness of breath.? patient is a former smoker. GI - Complains of constipation.? Denies nausea, vomiting and diarrhea. - Denies blood in urine and urinary frequency.? had tubal ligation. MS - Complains of back pain.? Denies muscle cramps, stiffness and muscle weakness.? ? Derm -has personal history of skin cancer on left anterior leg. ? Has recurrent painful ganglion cyst dorsum left hand/wrist at base of thumb. Neuro - Denies headaches. Psych - Denies anxiety and depression. Endo - Denies excessive urination and excessive thirst. Heme - Denies bleeding and abnormal bruising. PHYSICAL EXAMINATION General - well developed, well nourished, in no acute distress.? HEENT - PERRL/EOMI.? Throat is clear.? No suspicious lesions noted. Neck - supple and nontender.? No cervical adenopathy.? No suspicious lesions noted. Lungs - clear bilaterally to auscultation. Heart - regular rate and rhythm. Abdomen - soft and nondistended. ?No suspicious lesions noted. ? Extremities - no clubbing, cyanosis, edema, or deformity noted with normal full range of motion of all joints.? On the dorsum left hand/wrist at base of left thumb is a recurrent ganglion cyst. Measures 1 cm. Overlying skin is intact and not ulcerated.? Appears mobile.? No evidence of infection.? No problems with range of motion.? No sensory deficits.? Mild tenderness to palpation. ?No axillary adenopathy.? Fingers are warm with good capillary refill.? Radial pulses are palpable. Neurologic - cranial nerves II-XII grossly intact.? Psych - alert and cooperative; normal mood and affect; normal attention span and concentration.? ASSESSMENT 1.? 1 cm painful recurrent multiseptated ganglion cyst at the lateral margin of the radiocarpal joint dorsum left hand/wrist at base of thumb. 2.? Personal history of skin cancer. 3.? Former smoker. PLAN MRI from 05/30/23 was discussed with the patient. It showed 0.8 x 1.1 x 1.4 cm multiseptated ganglion cyst at the lateral margin of the radiocarpal joint.? Cystic changes in the scaphoid, lunate, triquetrum, trapezium, capitate, and hamate.? Degenerative arthrosis at the first CMC joint and first MCP joint.? Discussed with the patient that sometimes there are multiple cysts present.? At the time of surgery when I dissect the stalk down to the wrist joint,? I squeezed the wound in all four directions and no additional gelatinous material was seen at the base of the wound.? If some gelatinous material is noted, then another cyst is present.? Further dissection is then done to remove that one as well. ? Back on October 06, 2022, the patient had surgery where she underwent excision 1 cm painful ganglion cyst dorsum left wrist at base of thumb.? ?Pathology showed the mass dorsum left wrist at base of thumb was consistent with a ganglion cyst.? During the postoperative period, she noticed a bump was still there.? It is stable in size and is not enlarging.? There is no pain with wrist range of motion.? There is no numbness.? She presents today for surgery because of additional ganglion cysts present in the left wrist. Surgery will be done under general anesthesia and tourniquet control on an outpatient basis. Tissue that is removed at surgery will be sent to Pathology for analysis to rule out carcinoma. She will wear a plaster splint to stabilize the wrist for 2 weeks. She will be able to extend her wrist. I want to minimize flexion of the wrist. During these 2 weeks, her fingers are free for range of motion exercises to minimize stiffness. After the wrist splint is removed, if there is residual stiffness, then will set her up with OT for range of motion exercises, strengthening, and edema management. Patient was informed of the risks and complications of the procedure including alternatives to surgery.? These were discussed with the patient personally.? Patient voices understanding and wishes to proceed.? Some of the risks and complications were included in a form from the [employer]. Some of the risks and complications that were discussed included but were not inclusive of failure to diagnose including symptom relief, pain, infection, numbness, stiffness, loss of digit, RSD (CRPS), need for further surgery, contracture, and wound healing problems. Potential risks and complications included but not inclusive of bleeding, infection, seroma, hematoma, bruising, swelling, loss of sensation to skin, wound breakdown, need for wound care, poor scarring, poor aesthetic outcome, intra operative cardiac or neurologic events, DVT, PE, and reaction to anesthesia. Assessment & Plan Assessment/Plan (1) Ganglion cyst of dorsum of left wrist: (2) Personal history of skin cancer: (3) Former smoker:
--- NOTE | 2024-03-02 11:59 | PRE.ANES_ITS ---
ASA Classification* ASA Classification ASA Classification: 2 Assessment & Plan Anesthesia* Anesthesia Assessment Anesthesia Assessment: Discussed sedation and/or anesthesia options, risks, benefits, and alternatives with patient/parents/legal guardian/POA. Questions invited. The patient/parents/legal guardian/POA seems to understand and agrees to proceed with anesthesia plan. Reviewed the physical assessment, medical history, allergy history and patient home medications list prior to surgery/procedure/anesthetic and documented any changes. Performed airway and anesthesia risk assessments. 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 When Was Last Pacemaker Check QUESTION #4 FULL TEXT: You/Your Family Experience fever (hyperthermia) with Anesthesia Last Oral Intake Last Oral intake: Last Oral Intake NPO since Meds taken in AM with sips of water? 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 Female Yes 02/23/24 10:25 HX of Motion Sickness No 02/23/24 10:25 HX of N/V After Surgery No 02/23/24 10:25 Non-Smoker Yes 02/23/24 10:25 Duration of Surgery greater No 02/23/24 10:25 than 60 minutes Number of Risk Factors 2 02/23/24 10:25 PONV Score Moderate Risk 02/23/24 10:25 Height & Weight Height & Weight: Anesthesia: Height & Weight Height 5 ft 2 in 03/02/24 09:56 Weight: 82 kg 03/02/24 09:56 Body Mass Index (BMI) 33.0 03/02/24 09:56 Respiratory Assessment Respiratory Assessment - outside machinist supervisor: Respiratory Tract Infection Hx - outside machinist supervisor Hx Respiratory Tract Infection No 02/23/24 10:25 STOP Sleep Apnea STOP Sleep Apnea - outside machinist supervisor: STOP Sleep Apnea - outside machinist supervisor Hx Hypertension Yes: CONTROLLED WITH MED 02/23/24 10:25 Hx Sleep Apnea No 02/23/24 10:25 CPAP No 10/06/22 13:41 BIPAP No 09/29/22 09:32 Do you snore loudly (louder No 02/23/24 10:25 than talking or can be heard Do you often feel tired/ No 02/23/24 10:25 fatigued/ sleepy during daytime? Has anyone observed you stop No 02/23/24 10:25 breathing during sleep? STOP Results Negative 02/23/24 10:25 QUESTION #5 FULL TEXT : Do you snore loudly (louder than talking or can be heard through closed doors)? 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 Specify any problems Hx of Preganancy in last 3 No 02/23/24 10:25 Months Nurse Filling Out Transfusion DSCHRIBER 02/23/24 10:25 & Questions: Date: 02/23/24 02/23/24 10:25 Time: 10:26 02/23/24 10:25 Patient unable to answer at this time (ie. confused, unrespo /Reproduction History /Reproductive History - outside machinist supervisor: /Reproductive Hx- outside machinist supervisor Hx Now No 02/23/24 10:25 Gestational Age (in weeks): EDC: Hx Hx Para Hx Section SAB No 02/23/24 10:25 Active Medications Active Medications: Current Medications Generic Name Dose Route Start Last Admin Trade Name Valentin PRN Reason Stop Dose Admin Clindamycin Phosphate 900 mg in 50 mls @ 75 mls/hr 03/02/24 11:30 Cleocin IV 03/02/24 12:09 PREOP ONE Lactated Ringer's 1,000 mls @ 15 mls/hr 03/02/24 09:45 03/02/24 09:45 IV 15 mls/hr .Q48H FRANK Administration Anesthesia Focused Assessment* Temperature: 97.5 F Pulse Rate: 71 Blood Pressure: 155/72 Respiratory Rate: 16 Pulse Ox: 100 Airway Assessment Mouth opens: >3 cm Mallampati Score: II Pertinent Findings EKG Pertinent Findings:: Normal sinus rhythm Focused Labs Anesthesia Preop lab: CBC WBC 7.8 K/mm3 (4.4-11.0) 03/22/19 05:16 RBC 3.57 M/mm3 (4.2-5.4) L 03/22/19 05:16 Hgb 10.8 g/dl (12.0-15.0) L 03/22/19 05:16 Hct 32.6 % (37-47) L 03/22/19 05:16 Plt Count 205 K/mm3 (150-450) 03/22/19 05:16 CHEMISTRY Potassium 3.7 mmol/L (3.5-5.1) 09/30/23 14:08 Sodium 138 mmol/L (136-145) 09/30/23 14:08 BUN 20 mg/dL (7-18) H 09/30/23 14:08 Creatinine 0.63 mg/dL (0.55-1.02) 09/30/23 14:08 Glucose 80 mg/dL (74-106) 09/30/23 14:08 COAG Review of Systems (Anesthesia) ROS Narrative System reviewed and no additional complaints, except as documented. [facility] Medical History Pain of left thumb Localized swelling of left thumb Neoplasm of skin of lower leg Mass of right chest wall Lipoma of left forearm Alcohol use Discoloration of skin Cancer Arthritis Gastric reflux Former smoker Wears glasses Wears partial dentures Wears dentures Leg cramps Mass of right upper extremity Mass on back Mass of left upper extremity Ganglion cyst of dorsum of left wrist Mass of left forearm Neoplasm of unspecified behavior of bone, soft tissue, and skin Personal history of skin cancer Squamous cell carcinoma in situ Actinic skin damage Actinic keratosis Lipoma Ganglion cyst Angiolipoma Compound nevus Hypertension Smoker Mass of soft tissue of right upper extremity Home Medications ?Medication ?Instructions ?Recorded ?Last Taken ?Type hydrochlorothiazide 25 mg tablet 25 mg PO DAILY bp 05/21/14 01/20/16 08:30 History acetaminophen 500 mg tablet 500 - 1,000 mg PO Q6H PRN PRN Pain 10/27/18 Unknown History omeprazole magnesium 20 mg 20 mg PO DAILY gerd 10/27/18 05/04/23 History capsule,delayed release cholecalciferol (vitamin D3) 100 100 mcg PO DAILY 06/11/22 Unknown History mcg (4,000 unit) capsule naproxen sodium 220 mg capsule 220 mg PO DAILY 06/11/22 05/03/23 History (Aleve) rosuvastatin 5 mg tablet (Crestor) 5 mg PO DAILY 04/15/23 Unknown History Allergy/AdvReac Type Severity Reaction Status Date / Time cefadroxil Allergy Severe Nausea/Vom/ Verified 02/23/24 10:23 Diarrhea Family History Mother Anxiety Asthma Bleeding disorder Depression Hypertension COPD (chronic obstructive pulmonary disease) Brother Bleeding disorder Depression Hypertension COPD (chronic obstructive pulmonary disease) Surgical History History of surgical removal of ganglion cyst Status post surgical removal of ganglion cyst History of bilateral knee replacement History of squamous cell carcinoma excision H/O excision of ganglion cyst History of excision of mass History of excision of mass Status post excision of lipoma History of tubal ligation Social History Smoking Status: Former smoker second hand exposure: No alcohol intake: former substance use type: does not use what type of physical activity do you participate in: walking frequency: 1-2 times per week seatbelt use: never do you feel safe at home: Yes additional social history: SUN EXPOSURE: FREQUENTLY
[2024-03-02] MEDS: Clindamycin 900 MG/50 ML BAG 75 MG IV (12:09)
[2024-03-02] MEDS: Lidocaine 1% /Epi 1:100 (20ml) 20 ML Vial (12:42)
[2024-03-02] MEDS: Mupirocin Ointment 22gm Tube 1 APPLIC (14:09)
--- NOTE | 2024-03-02 14:14 | PCM.POST.ANE ---
Anesthesia: Postop Eval I Current Vital Signs Temperature: 97.5 F Pulse Rate: 74 Blood Pressure: 145/78 Respiratory Rate: 14 Pulse Ox: 97 Oxygen Delivery Method: Room Air Assessment Airway patent: Yes Spontaneous unlabored respirations: Yes Mental status: Awake and Calm nausea: No Vomiting: No Anesthesia Complication: No Fluid Hydration Crystalloid volume administer (ml): 1,500 Total IV fluid infused: 1,500 Progress Note Anesthesia document: Postop Eval 1 completed: Yes
--- NOTE | 2024-03-02 14:25 | PCM.OPRPT ---
Problems Associated Problem List Diagnoses (1) Ganglion cyst of dorsum of left wrist: (2) Personal history of skin cancer: (3) Former smoker: Report of Operation Date of Procedure: 03/02/24 Pre-Operative Diagnosis: 1. 1 cm painful recurrent multiseptated ganglion cyst at the lateral margin of the radiocarpal joint dorsum left hand/wrist at base of thumb. 2. Personal history of skin cancer. 3. Former smoker. Post-Operative Diagnosis: Same. Surgery/Procedure Performed:: Excision painful recurrent multiseptated ganglion cyst at the lateral margin of the radiocarpal joint dorsum left hand/wrist at base of thumb. Description of Surgical Findings:: 68 year old woman comes in today for evaluation of a recurrent mass on the dorsum left hand/wrist at the base of her thumb that has increased in size over the last several months and has become intermittently painful when bumped. She had surgery on 10/06/22 where she underwent excision 1 cm painful ganglion cyst dorsum left wrist at base of thumb. Healing was uneventful until several months later when she noticed some additional masses forming in the area of the previous surgery. An MRI was done on 05/30/23. It showed a 0.8 x 1.1 x 1.4 cm multiseptated ganglion cyst at the lateral margin of the radiocarpal joint. Cystic changes in the scaphoid, lunate, triquetrum, trapezium, capitate, and hamate.. Degenerative arthrosis at the first CMC joint and first MCP joint.. She comes in today for further evaluation and surgical options for treatment. Patient was informed of the risks and complications of the procedure including alternatives to surgery. These were discussed with the patient personally. Patient voices understanding and wishes to proceed. Some of the risks and complications were included in a form from the [employer]. Potential risks and complications included but not inclusive of bleeding, infection, seroma, hematoma, bruising, swelling, loss of sensation to skin, wound breakdown, need for wound care, poor scarring, poor aesthetic outcome, intra operative cardiac or neurologic events, DVT, PE, and reaction to anesthesia. Total tourniquet time #1 - 53 minutes. 8 minute break in between. Total tourniquet time #2 - 24 minutes. I used Hemoblast Ailyn absorbable hemostat. Catalog Number - [id number]. Lot Number - [id number]. Expiration - July 05, 2026. Surgeon: Craig Robles MD nut roaster helper: None Type of Anesthesia: General (with tourniquet control.) Anesthesiologist: Roni Stanton MD and Ulises Diaz CRNA Specimen's removed: Painful recurrent multiseptated ganglion cyst at the lateral margin of the radiocarpal joint dorsum left hand/wrist at base to Pathology. Drains: None. Estimated Blood Loss (mL): 20. Description of Procedure: The [] was prepped and draped in the usual fashion. SCD's were placed for DVT prophylaxis. Perioperative antibiotics were given intravenously. Using xylocaine with epinephrine, the [] was infiltrated. After waiting 5 minutes for the anesthetic to take effect, Patient was taken to OR in supine position and was placed under general anesthesia. A tourniquet was placed on the left arm. The left arm was prepped and draped in the usual fashion. SCD's were placed for DVT prophylaxis. Perioperative antibiotics were given intravenously. Using an Esmarch bandage to wrap the left hand and wrist, the tourniquet was elevated to 250 mmHg. I marked out the previous zigzag incision and marked out a horizontal line to give better visualization of the recurrent ganglion cyst. I infiltrated these markings with Xylocaine and epinephrine. I made a zig zag incision and extended the incision horizontally and in the radial direction. Dissection continued through the previous scar tissue along with the soft tissue until the ganglion cyst was visualized. It extended to the radial carpal joint. At the wrist joint, a couple of small ganglion cysts were seen when I pressed on the surrounding soft tissue. Their stalks were dissected down to the radiocarpal joint laterally. A small cuff of capsule was also excised to minimize recurrence. A branch of the superficial sensory branch of the radial nerve was visualized and preserved. The cysts were then sent to Pathology for analysis to rule out carcinoma. The wound was irrigated with saline. Minimal oozing was noted and controlled with electrocautery. The tourniquet was released after 53 minutes. Oozing was controlled with gauze compression and electrocautery. I also sprayed Hemoblast Ailyn into the wound to minimize seroma and hematoma. The tourniquet was again elevated to 250 mmHg after an 8 minute break. For closure I used 4-0 Vicryl interrupted sutures for the deep dermis and subcutaneous tissue. The skin was approximated with 5-0 Prolene simple interrupted sutures. The tourniquet was released after 24 minutes. Hemstasis obtained with compression. Antibiotic ointment was applied to the incision followed by Xeroform gauze and 2x2 gauze followed by a 2 inch Araceli wrap. A volar wrist splint was applied followed by compression earl wrap. During the procedure, the radial artery was seen and preserved. Patient tolerated the procedure well and was sent to PACU in satisfactory condition. Patient will be sent home on antibiotics and pain medication. She will keep her left arm elevated during the initial postoperative period. Patient will followup in a week for a wound check and for discussion of the pathology report. She will wear the wrist splint for 2 weeks. She will be encouraged to move her fingers to minimize stiffness. The sutures will be removed in two weeks. Grafts/Implants Used: Hemoblast Ailyn Procedure Start Time: 12:42 Procedure Stop Time: 14:16 Complications None. Admit VTE Documentation VTE Present on Admission: No VTE Mechan Device Prophylaxis: SCD's VTE Pharm Prophylaxis ordered?: No Addendum Addendum: Surgery Charges CPT - 43582 ICD-10 - M67.432, Z85.828, Z87.891
--- NOTE | 2024-03-02 14:37 | PCM.DC ---
Discharge Instructions Diet Discharge Diet: No restrictions Activity Discharge Activity: May Drive (after splint removed in two weeks.), May Shower (place plastic bag over left hand when showering.) and - (elevate left hand. No heavy lifting with left hand) May shower in (days): 1 (place plastic bag over left hand when showering.) May resume sexual activity in: 10-14 days Weight Bearing Status: Weight bearing as tolerated Lifting Restrictions: 10 lbs. Keep extremity elevated above heart level: Left Arm Dressing / Incision Call your doctor if your incision/area has: Continuous Slow Oozing, Sudden Increased Bleeding, Increased Pain/ Swelling, Increased Redness, Foul Smelling Discharge and Swelling at the incision site Call your doctor if you observe: Fever of 101 or Higher, Coldness, Increased Pain, Shortness of breath, Chest pain, Calf discomfort and Uncontrolled pain Change Dressing in: do not change dressing (will change the operative dressing in the office.) Cleanse incision/area with: Keep Dressing Clean & Dry (wear plastic bag over left hand when showering.) Follow Up Care Please Follow Up With: Craig Robles MD When: one week. call [phone] for appt. Test Results: Test results from this visit will be discussed in further detail at your follow-up appointment, if applicable. Discharge Plan Admission Primary Reason for Your Visit: excision recurrent ganglion cyst dorsum left wrist with lateral extension Attending Provider: Craig Robles Primary Care Provider: Griffin Romero Instructions Print Language: Maltese Discharge Orders/Prescriptions Prescriptions: New L.acidoph,saliva-B.bif-S.therm [Acidophilus Probiotic Blend] 175 mg capsule 1 cap PO DAILY Qty: 14 0RF oxycodone-acetaminophen [Percocet] 5-325 mg tablet 1 tab PO Q6H PRN (Reason: pain (scale score 7-10)) 7 Days Qty: 28 0RF Rx Instructions: 28 tabs (twenty-eight) clindamycin HCl [Cleocin HCl] 300 mg capsule 300 mg PO TID Qty: 12 0RF Continued naproxen sodium [Aleve] 220 mg capsule 220 mg PO DAILY cholecalciferol (vitamin D3) 100 mcg (4,000 unit) capsule 100 mcg PO DAILY rosuvastatin [Crestor] 5 mg tablet 5 mg PO DAILY hydrochlorothiazide 25 MG tablet 25 mg PO DAILY Patient Comments: BP acetaminophen 500 MG tablet 500 - 1,000 mg PO Q6H PRN PRN (Reason: Pain) omeprazole magnesium 20 MG capsule,delayed release(DR/EC) 20 mg PO DAILY Referrals / Follow Up: Craig Robles MD [Med Staff - Active Staff] - In 1 Week Griffin Romero MD [Primary Care Provider] - Disposition Disposition (needs filled in before D/C Order can be placed): Home, Self Care
--- NOTE | 2024-03-02 15:35 | POSTOPAN2_ITS ---
Anesthesia Postop Eval I Sum Postop Eval Completion status Anesthesia document: Postop Eval 1 completed: Yes Anesthesia Postop Eval I Summary Anesthesia Postop Eval I Summary: Anesthesia Postop Eval I: Assessment Summary Airway patent Yes 03/02/24 14:17 [email or web address] Spontaneous unlabored Yes 03/02/24 14:17 [email or web address] respirations Mental status Awake,Calm 03/02/24 14:17 [email or web address] nausea No 03/02/24 14:17 [email or web address] Vomiting No 03/02/24 14:17 [email or web address] Anesthesia Postop Eval I: Fluid Summary Crystalloid volume administer 1,500 03/02/24 14:17 [email or web address] (ml) Colloids volume administered ( ml) Blood Product volume administered (ml) Total IV fluid infused 1,500 03/02/24 14:17 [email or web address] Anesthesia Postop Eval I: Summary Notes Anesthesia Complication No 03/02/24 14:17 [email or web address] Anesthesia Complication Comment: Post-operative progress note Anesthesia: Postop Eval II Evaluation Mental status: Awake and Calm Pain Level: 0 nausea: No Vomiting: No Complications Anesthesia Complication: No
--- NOTE | 2024-03-02 15:35 | PCM.POSTANE2 ---
Anesthesia Postop Eval I Sum Postop Eval Completion status Anesthesia document: Postop Eval 1 completed: Yes Anesthesia Postop Eval I Summary Anesthesia Postop Eval I Summary: Anesthesia Postop Eval I: Assessment Summary Airway patent Yes 03/02/24 14:17 [email or web address] Spontaneous unlabored Yes 03/02/24 14:17 [email or web address] respirations Mental status Awake,Calm 03/02/24 14:17 [email or web address] nausea No 03/02/24 14:17 [email or web address] Vomiting No 03/02/24 14:17 [email or web address] Anesthesia Postop Eval I: Fluid Summary Crystalloid volume administer 1,500 03/02/24 14:17 [email or web address] (ml) Colloids volume administered ( ml) Blood Product volume administered (ml) Total IV fluid infused 1,500 03/02/24 14:17 [email or web address] Anesthesia Postop Eval I: Summary Notes Anesthesia Complication No 03/02/24 14:17 [email or web address] Anesthesia Complication Comment: Post-operative progress note Anesthesia: Postop Eval II Evaluation Mental status: Awake and Calm Pain Level: 0 nausea: No Vomiting: No Complications Anesthesia Complication: No
== END 2024-03-02 15:58 | disposition home or self-care (01) ==
LOC: SDC 09:29 → AC 09:32
PROVIDERS: PCP Family Medicine; Referring Provider Surgery; Visit Provider Surgery
PROC: (CPT 25112; principal; 2024-03-02 11:15)
DX: M67.432 Ganglion, left wrist (principal); I10 Essential (primary) hypertension; E78.00 Pure hypercholesterolemia, unspecified; K21.9 Gastro-esophageal reflux disease without esophagitis; Z87.891 Personal history of nicotine dependence; Z79.899 Other long term (current) drug therapy; Z85.828 Personal history of other malignant neoplasm of skin
CPT/HCPCS: 25112; 88304; J7120; J2405

== ENCOUNTER → 2024-07-27 | Outpatient (CLI) | payer MEDICARE, MEDICAID, SELFPAY ==
--- NOTE | 2024-07-27 16:50 | US_ITS ---
EXAM: US ABDOMEN LIMITED CLINICAL INDICATION: soft tissue mass left upper arm and left dorsal hand TECHNIQUE: Real-time ultrasound of the soft tissues of the abdomen with image documentation. COMPARISON: No relevant prior studies available. FINDINGS: SOFT TISSUES: Palpable area of abnormality labeled #1 at the dorsal left hand corresponds to a complex circumscribed hypovascular mass measuring 0.9 x 0.8 x 0.6 cm. Differential diagnosis includes but is not limited to giant cell tumor of the tendon sheath or a hematoma. Recommend MRI with contrast for further investigation. Papillary #3 at the left upper arm corresponds to a subcutaneous lipoma measuring up to 4.5 cm. FREE FLUID: There is no internal blood flow and no peripheral hypervascularity. OTHER FINDINGS: Palpable area labelled # 2 corresponds underlying bone. US/Other Unlisted US Procedure IMPRESSION: 1. Palpable abnormality at the dorsal left hand corresponds to a complex circumscribed hypovascular 9 mm mass. Differential diagnosis includes but is not limited to giant cell tumor of the tendon sheath or a hematoma. Recommend MRI with contrast for further investigation. 2. Lipoma at the left upper arm. Electronically Signed: Ben Paz MD at 23:38 EST ,
== END | disposition home or self-care (01) ==
LOC: US 16:47
PROVIDERS: PCP Family Medicine; Referring Provider Nurse Practitioner Family; Visit Provider Nurse Practitioner Family
DX: M79.89 Other specified soft tissue disorders (principal)
CPT/HCPCS: 76999

== ENCOUNTER → 2024-11-30 | Outpatient (CLI) | payer MEDICARE, MEDICAID, SELFPAY ==
--- NOTE | 2024-11-30 | LES_PTH ---
PATIENT: VLAD SEVERINO [facility] U#:[id number] AGE/SX: 69/F ROOM: RE11/30/[address]: Dr. Griffin Romero MD : 1955 BED: DIS: 11/30/2024 SPEC #: [id number] RECD: 12/03/24 10:47 STATUS: [place] #: [id number] JEAN MARIE: 11/30/24 00:[address]: Griffin Romero DEPT: SURGICAL PATHOLOGY RECD BY: Asher Schultz Tissues: A - Skin of arm Procedures: Surgery Specimen Level IV HEADER OPERATION: Left arm neoplasm PRE-OP DIAGNOSIS: 6mm punch biopsy TISSUE SUBMITTED: A- Left arm punch biopsy MICROSCOPIC DIAGNOSIS LEFT ARM, SKIN, NEOPLASM, PUNCH BIOPSY: * Benign verrucous keratosis, traumatized. * Negative for malignancy. MICROSCOPIC DESCRIPTION Slides are reviewed. GROSS DESCRIPTION Received in formalin labeled, Vlad Severino, and designated arm punch biopsy, is a punch biopsy of [place] skin measuring 0.6 cm in diameter by 0.5 cm in length. Central on the skin is a red-brown focus of discoloration measuring 0.2 cm in greatest dimension and 0.2 cm from the radial skin margin. The margin is inked black, the specimen is trisected and totally submitted in one cassette. Kayy 12/03/2024 CPT:32327
== END | disposition home or self-care (01) ==
LOC: LABSPEC 16:08
PROVIDERS: PCP Family Medicine; Referring Provider Family Medicine; Visit Provider Family Medicine
DX: L57.0 Actinic keratosis (principal)
CPT/HCPCS: 88305

== ENCOUNTER → 2025-03-01 | Outpatient (CLI) | payer MEDICARE, MEDICAID, SELFPAY ==
--- NOTE | 2025-03-01 13:49 | ART_ITS ---
Reason For Study Reason For Study: PVD Procedure A bilateral lower extremity continuous wave Doppler with analog waveform analysis and ankle brachial indexes. Left Segmental Pressures Left brachial= 145mmHg. Left posterior tibial artery = 170mmHg. Left dorsalis pedis artery = 161mmHg. Left digit = 137 mmHg. Right Segmental Pressures Right brachial= 135mmHg. Right posterior tibial artery = 179mmHg. Right dorsalis pedis artery = 173mmHg. Right digit = 110 mmHg. Indices The right ankle brachial index by the posterior tibial artery is 1.23. The right ankle brachial index by the dorsalis pedis is 1.19. The right digital-brachial index is 0.76. The left ankle brachial index by the posterior tibial artery is 1.17. The left ankle brachial index by the dorsalis pedis is 1.11. The left digital-brachial index is 0.94. VL/Ankle Brachial Index Interpretation Summary Triphasic Doppler waveforms are noted at ankle level bilaterally. Pulse-volume recordings appear satisfactory at ankle level bilaterally. Resting ankle-brachial indices are normal bilaterally. Digit al-brachial indices are normal bilaterally. There is no evidence of significant arterial occlusive disease in the lower ext remities bilaterally. Ordering Physician: Joseph Arroyo Referring Physician: Griffin Romero Performed By: Bozena Wei RDCS/RVT
--- NOTE | 2025-03-01 14:17 | US_ITS ---
PROCEDURE: EXT NON VASC LIMITED/SOFT TISS 03/01/2025 REASON FOR EXAM: MASS OF LEFT FOOT TECHNIQUE: EXT NON VASC LIMITED/SOFT TISS COMPARISON: None. FINDINGS: Sonographic evaluation of the area of interest in the anterolateral aspect of the left foot reveals well-defined cystic lesion in the superficial soft tissues measuring 1.1 x 1 x 0.7 cm with associated minimal internal echoes. US/Ext Non Vasc Limited/Soft Tiss IMPRESSION: Cystic lesion corresponding to the palpable clinical abnormality, possibly a sy novial/ganglion cyst. Reading Location[facility]
== END | disposition home or self-care (01) ==
LOC: CVS 13:46
PROVIDERS: PCP Family Medicine; Referring Provider Surgery Plastic and Reconstructive Surgery; Visit Provider Surgery Plastic and Reconstructive Surgery
DX: I73.9 Peripheral vascular disease, unspecified (principal); M79.89 Other specified soft tissue disorders
CPT/HCPCS: 76882; 93922

== ENCOUNTER → 2025-03-27 | Outpatient (CLI) | payer MEDICARE, MEDICAID, SELFPAY ==
--- NOTE | 2025-03-27 13:16 | MRI_ITS ---
PROCEDURE: UPPER EXT JOINT ONLY W/WO CONT 03/27/2025 REASON FOR EXAM: MASS OF LEFT WRIST TECHNIQUE: UPPER EXT JOINT ONLY W/WO CONT CONTRAST: Clariscan VOLUME: 15 mL COMPARISON: May 30, 2023 FINDINGS: Severe 1st CMC joint osteoarthritis including piro-tj-bnjz articulation, subcortical cysts, degenerative bone marrow edema, joint effusion with synovitis and several small osteochondral bodies. Mild 1st extensor compartment tenosynovitis also noted. No suspicious soft tissue mass at this location. Moderate/severe 1st MCP joint osteoarthritis also noted. Remaining extensor tendons and the flexor tendons are intact. Degenerative signal of the scapholunate ligament without discrete tear. Associated enthesopathic cysts within the lunate and proximal pole of the scaphoid. Lunotriquetral ligament is intact. TFCC complex is intact. Negative for acute fracture or suspicious marrow replacement. No sizable ganglia. MRI/Upper Ext Joint Only W/WO Cont IMPRESSION: 1. No suspicious mass or sizable ganglia. 2. Severe 1st CMC joint osteoarthritis including a large joint effusion and sev eral small osteochondral bodies. 3. Mild 1st extensor compartment tenosynovitis. Reading Location: [facility]
--- NOTE | 2025-03-27 13:16 | MRI_ITS ---
PROCEDURE: UPPER EXT JOINT ONLY W/WO CONT 03/27/2025 REASON FOR EXAM: MASS OF LEFT WRIST TECHNIQUE: UPPER EXT JOINT ONLY W/WO CONT CONTRAST: Clariscan VOLUME: 15 mL COMPARISON: May 30, 2023 FINDINGS: Severe 1st CMC joint osteoarthritis including aban-lp-xbeo articulation, subcortical cysts, degenerative bone marrow edema, joint effusion with synovitis and several small osteochondral bodies. Mild 1st extensor compartment tenosynovitis also noted. No suspicious soft tissue mass at this location. Moderate/severe 1st MCP joint osteoarthritis also noted. Remaining extensor tendons and the flexor tendons are intact. Degenerative signal of the scapholunate ligament without discrete tear. Associated enthesopathic cysts within the lunate and proximal pole of the scaphoid. Lunotriquetral ligament is intact. TFCC complex is intact. Negative for acute fracture or suspicious marrow replacement. No sizable ganglia. MRI/Upper Ext Joint Only W/WO Cont IMPRESSION: 1. No suspicious mass or sizable ganglia. 2. Severe 1st CMC joint osteoarthritis including a large joint effusion and sev eral small osteochondral bodies. 3. Mild 1st extensor compartment tenosynovitis. Reading Location: [facility]
== END | disposition home or self-care (01) ==
LOC: MRI 13:08
PROVIDERS: PCP Family Medicine; Referring Provider Surgery Plastic and Reconstructive Surgery; Visit Provider Surgery Plastic and Reconstructive Surgery
DX: M79.89 Other specified soft tissue disorders (principal)
CPT/HCPCS: 73223; A9575; A4216

== ENCOUNTER → 2025-05-07 | Outpatient (CLI) | payer MEDICARE, MEDICAID, SELFPAY ==
--- NOTE | 2025-05-07 10:59 | BI_ITS ---
EXAM: SCRN MAMM (CAD)W/ELENA BILAT DATE: 05/07/2025 CLINICAL HISTORY: F, Age 70 y/o , SCREENING No family history. TECHNIQUE: SCRN MAMM (CAD)W/ELENA BILAT COMPARISON: Prior exam(s) dated May 23, 2023.. FINDINGS: TISSUE DENSITY: There are scattered areas of fibroglandular density. Bilateral Breast Mammographic Findings: I suspect a 6.6 mm nodule in the central slightly medial aspect of the left breast as seen on the craniocaudad view. This was not well seen on the mediolateral oblique view. There is a so evidence the patient will be recalled for compression views of both breasts and possible ultrasound. BI/SCRN MAMM (CAD)W/ELENA BILAT IMPRESSION: Questionable nodules as described in both breasts. The patient will be recalle d for additional views including compression spot views and 90 degree views. OVERALL FINAL ASSESSMENT BI-RADS 0: INCOMPLETE - NEED ADDITIONAL IMAGING EVALUATION. RECOMMENDATION: Additional Views obtained/call backs A letter with findings and recommendations will be mailed to the patient. Reading Location: [id number]
== END | disposition home or self-care (01) ==
PROVIDERS: PCP Family Medicine; Referring Provider Family Medicine; Visit Provider Family Medicine
DX: Z12.31 Encounter for screening mammogram for malignant neoplasm of breast (principal)
CPT/HCPCS: 77063; 77067

== ENCOUNTER → 2025-05-31 | Outpatient (CLI) | payer MEDICARE, MEDICAID, SELFPAY ==
[2025-05-31 18:35] LABS: AST(SGOT) 19 U/L (<=31); Alanine Aminotransfer ALT/SGPT 16 U/L (<=34); Albumin, Serum 4.5 g/dL (3.4-4.8); Alkaline Phosphatase 71 U/L (35-104); Anion Gap 13 (5-15); BUN 21 mg/dL (4-19); BUN/Creat Ratio 27.7 RATIO (10-20); Calcium,Total 10.3 mg/dL (7.6-11.0); Carbon Dioxide 27.7 mmol/L (21.0-32.0); Chloride 99 mmol/L (98-108); Cholesterol 185 mg/dL (<=200); Globulin 2.9 g/dL (2.2-4.2); Glucose 77 mg/dL (70-99); Low Density Lipoprotein Calc. 91 mg/dL; Potassium 4.6 mmol/L (3.3-5.1); Triglycerides 85 mg/dL; Very Low Density Lipoprotein 17 mg/dL (5-40); cholesterol:hdl ratio screen 2.39
== END | disposition home or self-care (01) ==
LOC: MFPLAB 15:20
PROVIDERS: PCP Family Medicine; Visit Provider Family Medicine
DX: E78.00 Pure hypercholesterolemia, unspecified (principal)
CPT/HCPCS: 36415; 80053; 80061

== ENCOUNTER → 2025-06-25 | Outpatient (CLI) | payer MEDICARE, MEDICAID, SELFPAY ==
--- NOTE | 2025-06-25 12:51 | US_ITS ---
PROCEDURE: BREAST LIMITED UNILATERAL 06/25/2025 REASON FOR EXAM: F, Age 70 y/o , ABN MAMM COMPARISON: Prior mammogram dated May 07, 2025 and June 25, 2025.. TECHNIQUE: Procedure Code: [id number] Modality: US Procedure: BREAST LIMITED UNILATERAL. The lateral half of the right breast was examined with ultrasound. FINDINGS: Numerous lipomas are seen throughout the breast. The largest is in the 7 o'clock position of the breast at 2 cm from the nipple measuring 4.1 cm 3.7 cm 1.6 cm. US/Breast Limited Unilateral IMPRESSION: Multiple lipomas are seen within the right breast. BI-RADS 2: BENIGN RECOMMENDATION: Routine annual follow-up in 1 Year Reading Location: [place] [id number]
--- NOTE | 2025-06-25 12:51 | BI_ITS ---
EXAM: DIAG MAMM W/CAD, BILAT 06/25/2025 CLINICAL HISTORY: F, Age 70 y/o , ABN MAMM TECHNIQUE: Procedure Code: [id number] Modality: MG Procedure: DIAG MAMM W/CAD, BILAT. Compression spot views of both breasts were obtained. COMPARISON: Prior exam(s) dated May 07, 2025. FINDINGS: TISSUE DENSITY: There are scattered areas of fibroglandular density. Bilateral Breast Mammographic Findings: Persistent 1 cm nodular density at the 9 o'clock position of the right breast. Sonographic correlation recommended. The previously seen questionable nodules in the left breast represents superimposition of tissue. BI/DIAG MAMM W/CAD, BILAT IMPRESSION: Persistent 1 cm nodule in the right breast as described. Sonographic correlati on recommended. OVERALL FINAL ASSESSMENT BI-RADS 0: INCOMPLETE - NEED ADDITIONAL IMAGING EVALUATION. RECOMMENDATION: Ultrasound Recommended Additional Recommendation none A letter with findings and recommendations will be mailed to the patient. Reading Location: [place] [address]
--- NOTE | 2025-06-25 12:51 | US_ITS ---
PROCEDURE: BREAST LIMITED UNILATERAL 06/25/2025 REASON FOR EXAM: F, Age 70 y/o , ABN MAMM COMPARISON: Prior mammogram dated May 07, 2025 and June 25, 2025.. TECHNIQUE: Procedure Code: USBRSTLIMIT Modality: US Procedure: BREAST LIMITED UNILATERAL. The lateral half of the right breast was examined with ultrasound. FINDINGS: Numerous lipomas are seen throughout the breast. The largest is in the 7 o'clock position of the breast at 2 cm from the nipple measuring 4.1 cm 3.7 cm 1.6 cm. US/Breast Limited Unilateral IMPRESSION: Multiple lipomas are seen within the right breast. BI-RADS 2: BENIGN RECOMMENDATION: Routine annual follow-up in 1 Year Reading Location: [place] [address]
--- NOTE | 2025-06-25 12:51 | BI_ITS ---
EXAM: DIAG MAMM W/CAD, BILAT 06/25/2025 CLINICAL HISTORY: F, Age 70 y/o , ABN MAMM TECHNIQUE: Procedure Code: [id number] Modality: MG Procedure: DIAG MAMM W/CAD, BILAT. Compression spot views of both breasts were obtained. COMPARISON: Prior exam(s) dated May 07, 2025. FINDINGS: TISSUE DENSITY: There are scattered areas of fibroglandular density. Bilateral Breast Mammographic Findings: Persistent 1 cm nodular density at the 9 o'clock position of the right breast. Sonographic correlation recommended. The previously seen questionable nodules in the left breast represents superimposition of tissue. BI/DIAG MAMM W/CAD, BILAT IMPRESSION: Persistent 1 cm nodule in the right breast as described. Sonographic correlati on recommended. OVERALL FINAL ASSESSMENT BI-RADS 0: INCOMPLETE - NEED ADDITIONAL IMAGING EVALUATION. RECOMMENDATION: Ultrasound Recommended Additional Recommendation none A letter with findings and recommendations will be mailed to the patient. Reading Location: [place] [address]
== END | disposition home or self-care (01) ==
PROVIDERS: PCP Family Medicine; Referring Provider Family Medicine; Visit Provider Family Medicine
DX: R92.8 Other abnormal and inconclusive findings on diagnostic imaging of breast (principal); N63.20 Unspecified lump in the left breast, unspecified quadrant; N63.10 Unspecified lump in the right breast, unspecified quadrant
CPT/HCPCS: 76642; 77062; 77066; G0279